=== PATIENT | female | born 1940 | race Caucasian/White ===

== ENCOUNTER 2017-10-06 08:34 | Emergency (ER) | payer MEDICARE ==
[~2017-10-06] VITALS: Ht 157.5 cm; Wt 90.7 kg
[~2017-10-06 08:34] MED LIST: ALENDRONATE SOD70 MG PO; AMLODIPINE BESY10 MG PO; CHLORTHALIDONE50 MG PO; CRESTOR10 MG PO; ESCITALOPRAM OX20 MG PO; FAMOTIDINE40 MG PO; KRILL OIL 1,001 EACH PO; LEVAQUIN750 MG PO; LEVOTHYROXINE75 MCG PO; LOSARTAN POTAS100 MG PO; LYRICA50 MG PO; METOPROLOL TAR100 MG PO; NIACIN500 M1 PO; OFLOXACIN10 ML OPTH; OXYBUTYNIN CHLO10 MG PO; OXYBUTYNIN CHLOR5 MG PO; OXYCODONE HCL5 MG PO; PREDNISOLONE ACE5 ML OPTH; PROBENECID-COL1 EACH PO; TRAMADOL HCL50 MG PO; VITAMIN D250000 UNIT PO; WARFARIN SODIU7.5 MG PO; WARFARIN SODIUM1 MG PO
[2017-10-06] MEDS ORDERED: METHYLPREDNISOLO4 M1 PO (10:38)
[2017-10-06] MEDS ORDERED: BACLOFEN10 MG PO (10:38)
== END 2017-10-06 11:04 | disposition home or self-care (01) ==
LOC: ED 08:34
DX: S20.211A Contusion of right front wall of thorax, initial encounter (principal); E03.9 Hypothyroidism, unspecified; E78.00 Pure hypercholesterolemia, unspecified; Z90.49 Acquired absence of other specified parts of digestive tract; Z95.0 Presence of cardiac pacemaker; Z98.890 Other specified postprocedural states; Z88.0 Allergy status to penicillin; Z88.6 Allergy status to analgesic agent; Z79.899 Other long term (current) drug therapy; W01.198A Fall on same level from slipping, tripping and stumbling with subsequent striking against other object, initial encounter; Z79.01 Long term (current) use of anticoagulants
CPT/HCPCS: 36415; 71101; 80048; 85025; 85610; 96372; 99283; J1885

== ENCOUNTER 2017-10-09 14:15 | Emergency (ER) | payer MEDICARE ==
[~2017-10-09] VITALS: Ht 157.5 cm; Wt 90.7 kg
[~2017-10-09 14:15] MED LIST changes: +BACLOFEN10 MG PO; +METHYLPREDNISOLO4 M1 PO
--- NOTE | 2017-10-09 15:12 | EKG ---
[facility] [address] [facility] [place] [address] Signed Normal sinus rhythm Normal ECG No previous ECGs available Confirmed by BRENDEN JUSTIN MD ([id number]) on 10/09/2017 3:12:22 PM Electronically Signed By: BRENDEN JUSTIN MD 10/09/17 1512 PATIENT NAME: CARLOS NARAYANAN Electrocardiogram DATE OF : 36 PHYSICIAN: BRENDEN JUSTIN MD REPORT #: [id number] REPORT IS CONFIDENTIAL AND NOT TO BE RELEASED WITHOUT AUTHORIZATION
[2017-10-09] MEDS ORDERED: CODEINE SULFATE30 MG PO (15:56)
== END 2017-10-09 16:40 | disposition home or self-care (01) ==
LOC: ED 14:15
DX: R47.01 Aphasia (principal); T42.8X5A Adverse effect of antiparkinsonism drugs and other central muscle-tone depressants, initial encounter; I10 Essential (primary) hypertension; E03.9 Hypothyroidism, unspecified; E78.00 Pure hypercholesterolemia, unspecified; Z86.73 Personal history of transient ischemic attack (TIA), and cerebral infarction without residual deficits; Z88.0 Allergy status to penicillin; Z88.8 Allergy status to other drugs, medicaments and biological substances; Z79.899 Other long term (current) drug therapy; Z79.01 Long term (current) use of anticoagulants
CPT/HCPCS: 70450; 71010; 80053; 84484; 85025; 85610; 85730; 93005; 93010; 99284; J7030

== ENCOUNTER 2018-04-26 14:11 | Inpatient (IN) | payer MEDICARE ==
[~2018-04-26] VITALS: Ht 157.5 cm; Wt 98.9 kg
[~2018-04-26 14:11] MED LIST changes: +CODEINE SULFATE30 MG PO; +FAMOTIDINE20 MG PO; -FAMOTIDINE40 MG PO
--- NOTE | 2018-04-26 18:35 | NUR ---
PT TO ROOM 109, PT ALERT, TRANSFER SLIDE TO HOSPITAL BED WITH THREE PERSON ASSIST. FAMILY AT BEDSIDE.
--- NOTE | 2018-04-26 19:25 | NUR ---
RECIEVED REPORT FROM ABDELRAHMAN CATALAN. PT JUST ARRIVED TO FLOOR. LR STARTED AT 100ML/HR. PT IS A/O 1L NC IN PLACE. SON AT BEDSIDE. REPORTS PAIN 05/19. INFORMED PT OF DUE PAIN MEDICATION. PT EATING DINNER AT THIS TIME. CALL LIGHT WITHIN REACH. REPORTS NO OTHER NEEDS AT THIS TIME.
--- NOTE | 2018-04-26 22:00 | NUR ---
ASSESSMENT COMPLETED. CRACKLES RLL. FINE CRACKLES LLL. HEART SONDS REGULAR. BRUISING NOTED ON RIGHT RIB. NO EDEMA. PULSES +2 X4. CMS INTACT. PAIN 7/10. MEDICATION GIVEN. BOWEL TONES ACTIVE. LOTS OF FAMILY AT BEDSIDE. PT IS A/O. OOB TO BATHROOM VOID NOT CAUGHT. CALL LIGHT WITHIN REACH. REPORTS NO OTHER NEEDS AT THIS TIME.
--- NOTE | 2018-04-27 | NUR ---
PT APPEARS TO BE SLEEPING. ACCESSORY MUSCLES USED WHILE BREATHING. PT USES BIPAP AT HOME. 1L NC IN PLACE .FLUIDS INFUSING. CALL LIGHT WITHIN REACH. RESPITORY RATE IS 20.
--- NOTE | 2018-04-27 02:14 | NUR ---
IN ROOM TO TAKE VS AND ADMINISTER OXYCODONE. PT DENIES FURTHER NEEDS. CALL LIGHT IS WITHIN REACH.
--- NOTE | 2018-04-27 04:18 | NUR ---
ASSESSMENT COMPLETED. CRACKELS IN RLL. FINE CRACKLES IN LLL. BRUISING IN RIGHT RIB HAS SLIGHTLY INCREASED IN SIZE. RESPIRATIOSN ARE EQUAL AND NONLABORED. 1L NC IN PLACE. FLUIDS INFUSING. CALL LIGHT WITIHN REACH.
--- NOTE | 2018-04-27 05:39 | NUR ---
PT SLEPT THROUGH THE NIGHT.; BRUISING ON RIB INCREASED SLIGHTLY. VSS. 1L NC IN PLACE. ABDOMINAL MUSCLES USED WHILE BREATHING .SATURATION STAYED MID 90'S. 1L NC. SBA FWW. SL.
--- NOTE | 2018-04-27 05:46 | NUR ---
VITALS DONE AND CHARTED. BEDSIDE TABLE AND CALL LIGHT WITHIN REACH. PT NEEDS NOTHING ELSE AT THIS TIME.
--- NOTE | 2018-04-27 07:55 | NUR ---
PT IN BED SLEEPING, AWOKE EASILY TO VOICE. PT DENIES PAIN AT THIS TIME AT REST, REPORTS THAT SHE HAS PAIN WITH DEEP INSPIRATION AND WITH MOVMENT. DENIES NAUSA, DIFFICULTY BREATHING, OR OTHER CONCERNS. ALERT AND ORIENTED. PT ASSISTED TO ORDER BREAKFST, GIVEN FRESH ICE WATER. ASSESSMENT COMPLETED. CALL LIGHT WITHIN REACH.
--- NOTE | 2018-04-27 09:20 | NUR ---
PT GETTING US IN ROOM. PT SBA WITH WALKER TO RESTROOM SHELTER THROUGH. STEADY ON FEET. PT WITHOUT PAIN AT REST, RATES PAIN 8/10 WITH MOVEMENT. RECIEVED SCHEDULED OXYCODONE. PT ALERT AND ORIENTED. SATTING 97% ON 1LNC. EXTENSIVE BRUISING NOTED TO RIGHT RIB AREA FROM RECENT FALL. PT ASSISTED BACK TO BED TO FINISH US. CALL LIGHT WITHIN REACH.
--- NOTE | 2018-04-27 11:44 | NUR ---
PT RESTING IN BED, DRINKING A CUP OF COFFEE. SHE IS ALERT, ORIENTED AND ALSO SUPPORTED BY HER SON. PT SEEMED SOMEWHAT COMFORTABLE, SHE DID MENTION THAT HER PAIN HAD STARTED TO DECREASE. SHE FELT THE PAIN MEDS WERE WORKING, AND WE CONTINUED TO VISIT, A FRIEND STOPPED BY TO VISIT. I EXTENDED A BLESSING, WILL FOLLOW NEEDED
--- NOTE | 2018-04-27 11:50 | NUR ---
PT AMB HALLWAY WITH P.T., SBA WITH WALKER. PAINFUL WITH MOVEMENT.
--- NOTE | 2018-04-27 12:34 | NUR ---
PT ASSISTED BACK TO BED AFTER AMB WITH P.T., PT VERY PAINFUL, MEDICATED WITH PRN OXY. GIVEN FRESH ICE WATER. FAMILY AT BEDSIDE. CALL LIGHT WITHIN REACH.
--- NOTE | 2018-04-27 13:25 | NUR ---
PT IN BED, REPORTED 9/10 PAIN TO BACK AND RIGHT RIBS. REPORTED THAT SHE FEELS LIKE SHE IS HAVING "BACK SPASMS". GAVE SCHEDULED OXYCODONE 5 MG PO. PT HAS HER PERSONAL SUPPLIES AND CALL LIGHT IN REACH.
--- NOTE | 2018-04-27 14:40 | NUR ---
PT CONT TO C/O OF MUSCLE SPASMS IN RIGHT BACK/RIB AREA. NOTIFIED DR. JUSTIN. PT REPOSITIONED AND PLACED WARM K-PACK TO AFFECTED AREA. PT WORKING ON I.S. REGULARLY, USING APPROPRIATELY. FRIEND AT BEDSIDE. CALL LIGHT WITHIN REACH.
[2018-04-27] MEDS ORDERED: METOPROLOL SUC200 MG PO (14:47)
--- NOTE | 2018-04-27 15:03 | NUR ---
Medications reconciled with pharmacy records and patient interview. Patient is [facility] to pharmacist as [facility] patient
[2018-04-27] MEDS ORDERED: ALENDRONATE SOD70 MG PO (15:23)
--- NOTE | 2018-04-27 15:45 | NUR ---
PT RESTING IN BED, REPORTS THAT PAIN IS ALMOST GONE AT THIS TIME AND MUSCLE SPASMS HAVE SIGNIFICANTLY DECREASED. STATES SHE WOULD LIKE TO TAKE THIS TIME TO REST FOR A WHILE. CALL LIGHT WITHIN REACH.
--- NOTE | 2018-04-27 17:04 | NUR ---
SEVERINO SANDOVAL WITH [facility] CNA.
--- NOTE | 2018-04-27 18:21 | NUR ---
PT TRANSFERRED BACK TO BED AFTER WORKING WITH P.T. PT TRANSFERRED WITH WALKER TO [facility], VOIDED LARGE AMOUNT. SATTING 88% ON 3L NC, PLACED BACK ON BIPAP AT THIS TIME WHILE SLEEPING. PT DENIES PAIN AT THIS TIME, NAUSEA RESOLVED AFTER RECIEVING ZOFRAN. AT BEDSIDE. BILATERAL DRESSINGS REMAIN CDI, CRYO CUFFS, TEDS, AND SCD'S IN PLACE. CALL LIGHT WITHIN REACH.
--- NOTE | 2018-04-27 19:13 | NUR ---
BEDSIDE REPORT RECEIVED FROM HOSSEIN HUERTA. PT AWAKE, STANDING AT BEDSIDE WITH FWW, FAMILY AND [employer] C DEVELOPER IN ROOM. PT REQUESTING TO WALK, 1L OXYGEN BY NC. IV SALINE LOCKED. PT DENIES PAIN. WILL CONTINUE TO MONITOR.
--- NOTE | 2018-04-27 20:07 | NUR ---
1 PA WITH WALKER PATIENT WALKED AROUND THE HALLWAY, 2L NC X1. PATIENT IS BACK IN BED. CALL LIGHT IN REACH. FAMILY IN ROOM.
--- NOTE | 2018-04-27 20:21 | NUR ---
PT ASSESSMENT COMPLETE. PT REPOSITIONED IN BED WITH RN SULY ASSIST. KPAD REPOSITIONED ON RIGHT SIDE. BRUISING NOTED. LUNGS CLEAR THROUGHOUT, DIMINISHED IN BASES BILATERALLY. PT USING IS. ON 1L OXYGEN BY NC, SATURATIONS WNL. PT DENIES PAIN, STATES "SHARP, 8-9/10 PAIN AT TIMES". SCHEDULED OXYCODONE ADMINISTERED. PT DENIES NEED FOR ORAL CARE, TOILETING. CALL LIGHT IN REACH.
--- NOTE | 2018-04-27 20:34 | NUR ---
ROUNDED CHARGE. PATIENT IS RESTING IN BED. RN ASSISTED WITH BOOSTING PATIENT. PATIENT DENIES ANY COMMNETS, QUESTIONS, OR CONCERNS. NO NEEDS NOTED AT THIS TIME. CALL LIGHT IN REACH. FAMILY IN THE ROOM.
--- NOTE | 2018-04-27 23:25 | NUR ---
CALL LIGHT ANSWERED, PT C/O SHARP, INTERMITTENT PAIN IN RIGHT RIBS. PRN OXYCODONE ADMINISTERED. HOME CPAP ON. NO ADDL REQUESTS, CALL LIGHT IN REACH.
--- NOTE | 2018-04-28 02:04 | NUR ---
CHECKED ON PT, APPEARS TO BE SLEEPING, EYES CLOSED, VISIBLE CHEST RISE EQUAL BILATERALLY. HOME CPAP ON. LIGHTS OFF IN ROOM.
--- NOTE | 2018-04-28 03:45 | NUR ---
IN PT ROOM WITH RT KAREN, SPO2 83% WITH HOME CPAP, 2L OXYGEN BLED INTO CPAP AT THIS TIME, SATURATIONS INCREASE TO 89%. PT ALERT AND ORIENTED. LUNGS CLEAR THROUGHOUT ALL LOBES, DIMINISHED IN BASES. BOWEL TONES ACTIVE X 4, ABD SOFT. PT RATES PAIN 10/10, OXYCODONE ADMINISTERED. PT ASSISTED TO REPOSITION, KPAD IN PLACE. CALL LIGHT IN REACH, PT HAS NO ADDL REQUESTS. WILL CONTINUE TO MONITOR.
--- NOTE | 2018-04-28 06:38 | NUR ---
IN PTS ROOM FOR [employer] EXCHANGE ADMINISTRATOR, SLEEPING, AWAKENS EASILY TO VOICE. PT C/O -08/19 SHARP INTERMITTENT PAIN, PRN OXYCODONE ADMINISTERED AT THIS TIME. HOME CPAP ON W 2L OXYGEN BLED INTO MACHINE. PT HAS CALL LIGHT IN LAP. DENIES TOILETING NEEDS. ICE WATER REFILLED.
--- NOTE | 2018-04-28 06:41 | NUR ---
PAIN CONTROLLED WITH PRN AND SCHEDULED OXYCODONE. 1PA WITH FWW TO RESTROOM FOR VOIDS, INCONTINENCE IN ATTENDS. PT USING CALL LIGHT APPROPRIATELY. AMBULATED OUT OF ROOM WITH SBA FWW. PT ON HOME CPAP WITH 2L OXYGEN BLED IN TO MAINTAIN SATURATIONS >90%. 2L OXYGEN BY NC AT REST.
--- NOTE | 2018-04-28 07:05 | NUR ---
PT RESTING IN BED EYES CLOSED, ALERT TO BEDSIDE REPORT. PT ON CPAP.
--- NOTE | 2018-04-28 10:05 | NUR ---
PT EDUCATION PROVIDED TO CONTINUE AMBULATION, DEEP BREATH OFTEN TO F[place]ON OFF PNEUMONIA, BOTH PT AND CAREGIVER/FRIEND IN ROOM FOR EDUCATION. DISCUSSED PLAN OF CARE FOR THE DAY AND PLAN FOR PAIN MANAGEMENT. ALSO DISCUSSED PT INCREASE IN PAIN WITH , TOPICAL CREAM WILL BE ORDERED.
--- NOTE | 2018-04-28 10:57 | NUR ---
PT REPORTS THAT SHE IS HAvING BACK SPASMS, PT REPOSITIONED AND K-PAD PLACED TO PAINFUL AREA. PT REPORTS PAIN IMPROVED.
--- NOTE | 2018-04-28 11:47 | NUR ---
PT SITTING IN CHAIR, ALERT AND ORIENTED. HER FRIEND LEFT JUST I ARRIVED. PT STATED THAT SHE HAD A REALLY LONG NIGHT. SHE ENCOUNTERED SPASMS MOST OF THE NIGHT, AND HAD ONE WHILE I WAS WITH HER. WE HAD PRAYER TOGETHER, AND I TOLD HER I WOULD NOTIFY HER RN, WHICH I DID. I WILL CONTINUE TO FOLLOW NEEDED
--- NOTE | 2018-04-28 12:55 | NUR ---
pt repostitioned in chair and administered flexeril 2.5mg po. and lidoderm patch placed to right back to assist with muscle spasms.
--- NOTE | 2018-04-28 14:30 | NUR ---
UPDATED ON PT TO WORK WITH PHYSICAL THERAPY AT 1500 AND R.T. WILL PERFORM HOME OXYGEN EVALUATION ALSO
--- NOTE | 2018-04-28 15:15 | NUR ---
UPDATED THAT FAMILY FEELS NOT READY TO GO HOME ONLY ONE PERSON AVAILABLE TO ASSIST PT AT HOME. WHILE WORKING [facility] PHYSICAL THERAPY WAS EVALUATED TO NEED 3-4L BY Ba, AND SHE REQUIRED TWO PERSON ASSIST TO GET IN AND OUT OF BED. PAIN AND MUSCLES SPASMS STILL MODERATE, RN AND MD HAS BEEN ADJUSTING PAIN REGIME THROUGHOUT SHIFT TO MAKE PAIN TOLERABLE.
--- NOTE | 2018-04-28 15:57 | NUR ---
PT CURRENTLY AT REST IN BED ON ROOM AIR OXYGEN SATURATION 92%. PT REPORTS AT REST WHEN NOT HAVING MUSCLE SPASMS PAIN IS TOLERABLE.
--- NOTE | 2018-04-28 16:52 | NUR ---
PT HAS BEEN UP TO RECLINER THIS AM FOR UNTIL AFTER LUNCH THEN BACK TO BED, HAS WORKED WITH PHYSICAL THERAPY THIS AFTERNOON, AND HAD HOME OXYGEN EVALUATION, SHE REQUIRES 3-4L WITH AMBULATION AND ROOM AIR WHILE AT REST. SHE REQUIRES TO PERSON ASSIST TO GET IN AND OUT OF BED. SHE HAS HAD MUSCLE SPASMS IN HER BACK SEVERE GRADE. FLEXRIL ADDED TO PAIN REGIME, OXYCODONE SCHEDULED AND PRN ADMINISTERED OFTEN AVAILABLE TO MAINTAIN TOLERABLE LEVEL OF 3-4/10 PAIN. SHE REPORTS PAIN 10/10 WITH SPASMS. SPASMS IMPROVE WITH AMBULATION. PT CHANGED TO INPATIENT STATUS TODAY.
--- NOTE | 2018-04-28 19:13 | NUR ---
BEDSIDE REPORT RECEIVED FROM HOSSEIN BAY. PT APPEARS TO BE SLEEPING AT THIS TIME, EYES CLOSED, BREATHING NON-LABORED, SHALLOW, PT ON 2L OXYGEN BY NC. HOSSEIN BAY TO ADMINISTER PRN OXYCODONE FOR PAIN CONTROL.
--- NOTE | 2018-04-28 21:45 | NUR ---
PT ASSESSMENT COMPLETE. 1PA WITH FWW TO RESTROOM FOR VOID, SOME INCONTINENCE NOTED IN ATTENDS, ATTENDS CHANGED. 1PA WITH FWW BACK TO BED, ORAL CARE COMPLETE. RT KAREN IN ROOM. LUNGS CLEAR BILATERALLY IN UPPER LOBES, FINE CRACKLES LLL, RLL DIMINISHED. PT USING IS AND CPT INSTRUCTED. LIDODERM PATCHES REMOVED AT THIS TIME, PRN ASPERCREME ADMINISTERED. PT RATES PAIN 0/10 AT THIS TIME, CONTINUES TO HAVE SHARP PAIN, "SPASMS". HOME CPAP ON AT THIS TIME, LIGHTS OFF, PT GIVEN ICE WATER, CALL LIGHT IN REACH.
--- NOTE | 2018-04-29 00:16 | NUR ---
CHECKED ON PT, APPEARS TO BE SLEEPING, EYES CLOSED, BREATHING NON-LABORED, HOME CPAP ON WITH 2L OXYGEN BLED IN. LIGHTS OFF IN ROOM.
--- NOTE | 2018-04-29 01:55 | NUR ---
IN PT ROOM FOR SCHEDULED PAIN MEDICATION ADMINISTRATION. PT AWAKENS EASILY WITH RN ENTERING ROOM. PT DENIES PAIN AT THIS TIME. PT DENIES TOILETING NEEDS AT THIS TIME, WILL MONITOR. HOME CPAP ON WITH 2L OXYGEN. CALL LIGHT IN REACH.
--- NOTE | 2018-04-29 03:10 | NUR ---
2PA OUT OF BED AND SBA WITH FWW FOR AMBULATION TO RESTROOM FOR 400 ML VOID. PT PASSING FLATUS, NO BM AT THIS TIME. FINE CRACKLES NOTED BILATERALLY LOWER LOBES, PT ENCOURAGED TO DEEP BREATHE. PT RATES PAIN 3-4/10. PRN ASPERCREME APPLIED TO RIGHT SIDE, BACK. REPOSITIONED IN BED WITH TELEPHONIC NURSE SINTA ASSIST. HOME CPAP WITH 2L OXYGEN ON. KPAD IN PLACE. LIGHTS OFF IN ROOM. CALL LIGHT IN REACH.
--- NOTE | 2018-04-29 04:00 | NUR ---
ASSISTED PATIENT TO THE BATHROOM AND BACK TO BED USING WALKER. CALL LIGHT WITHIN REACH. HOSSEIN CARRASCO IN ROOM WITH PATIENT.
--- NOTE | 2018-04-29 05:22 | NUR ---
2PA OUT OF BED, SBA WITH FWW TO RESTROOM FOR VOIDS, ONE EPISODE OF INCONTINENCE THIS SHIFT, ATTENDS IN PLACE. PAIN WELL CONTROLLED WITH PRN OXCODONE, PRN FLEXARIL, ASPERCREME. PT HAS APPEARED TO SLEEP THROUGHOUT SHIFT. 2L OXYGEN WITH CPAP FOR SLEEP, SATURATIONS WNL. NO BM THIS SHIFT, BOWEL TONES ACTIVE, PT PASSING FLATUS.
--- NOTE | 2018-04-29 06:10 | NUR ---
1PA FROM [facility] BACK TO BED. PT HAD LARGE BM AND UNMEASURED VOID. PT C/O 4-04/19 PAIN WITH AMBULATION, "SPASMS IN LOWER BACK". PRN MUSCLE RELAXANT AND PAIN MEDICATION ADMINISTERED AT THIS TIME. PT ON 2L OXYGEN BY CT AT THIS TIME, AWAKE. GIVEN ICE WATER. CALL LIGHT AND PERSONAL SUPPLIES IN REACH.
--- NOTE | 2018-04-29 08:00 | NUR ---
PT 1PA TO [facility], VOIDED AND HAD LARGE BM. ASSISTED BACK TO BED. BREAKFAST IN ROOM. FRIEND AT BEDSIDE. CALL BUTTON WITHIN REACH.
--- NOTE | 2018-04-29 08:15 | NUR ---
ASSISTED PATIENT OFF OF BSC. SBA FWW TO RECLINER. SET PATIENT UP FOR BREAKFAST. [id number] CHEST PROTECTOR. LINENS CHANGED. BM LIQUID BROWN. 2L [address] BLINDS OPENED TO ALLOW NATURAL LIGHT.
--- NOTE | 2018-04-29 11:17 | NUR ---
PT SITTING UP IN RECLINER. DENIES PAIN AT REST, STATES SHE ONLY HAS PAIN WITH DEEP INSPIRATION AND MOVEMENT. NEW LIDOCAINE PATCHES APPLIED THIS AM. PT ENCOURAGED TO DEEP BREATH AND COUGH, I.S. AND ACAPELLA. PT STILL REQUIRING 2LNC. ALERT AND ORIENTED. REPORTING "INDIGESTION" AT THIS TIME AND WOULD LIKE SOMETHING FOR HEARTBURN.
--- NOTE | 2018-04-29 11:45 | NUR ---
PT MEDICATED WITH PRN MAALOX FOR C/O OF HEARTBURN. PT REPORTS AT THIS TIME THAT SHE "SPIT UP A LITTLE BIT" AFTER TAKING MEDICATIONS. REPORTS GAS AND SLIGHT STOMACH UPSET. HELD LAXATIVE THIS AM PT HAS HAD 2 LARGE SOFT STOOLS. PT SITTING UP IN BED WATCHING TV, WAITING FOR MEDICATION TO "SETTLE" BEFORE ATTEMPTING TO EAT LUNCH. CALL BUTTON WITHIN REACH.
--- NOTE | 2018-04-29 12:34 | NUR ---
ASSISTED PT FROM TOILET, PT HAD MODERATE AMOUNT OF FOUL SMELLING LIQUID STOOL. PT REQUESTED TO AMB, AMB WITH MINIMAL ASSIST USING WALKER WITH FRIEND. PT SATTING 92% ON RA WHILE AMB.
--- NOTE | 2018-04-29 14:03 | NUR ---
PT RESTING IN BED, SEEMED PLEASED I STOPPED BY. PT MENTIONED HOW SHE FELL IN [place] AT A FAMILY REUNION, AND RODE IN A CAR BACK HERE. FEELS THOUGH HER LIFE WILL CHANGE, AND REALIZED SHE NEEDS TO MAKE SOME ADJUSTMENTS. SPASMS HAVE DECREASED IN NUMBER AND INTENSITY, WHICH SHE IS THANKFUL FOR. PLEASANT VISIT, PT REQUESTED PRAYER, WILL FOLLOW NEEDED
--- NOTE | 2018-04-29 14:20 | NUR ---
ASSISTED PT TO RESTROOM. SBA WITH WALKER. AMB TO RECLINER. SITTING UP WATCHING TV. ABLE TO MAINTAIN SATS ABOVE 90% ON RA. SMALL REDDNENED AREA ON BUTTOCK, BARRIER CREAM APPLIED. CALL LIGHT WITHIN REACH.
--- NOTE | 2018-04-29 16:10 | NUR ---
PT AMB HALLWAY WITH SBA AND WALKER. MAINTAINTED SATS AT 92% ON RA WHILE AMB. AMB BACK TO ROOM AND UP IN RECLINER. PT WORKING ON I.S. REGULARLY. CALL BUTTON WITHIN REACH.
--- NOTE | 2018-04-29 17:21 | NUR ---
PT AMB HALLWAY WITH P.T., STEADY ON FEET WITH WALKER.
--- NOTE | 2018-04-29 19:20 | NUR ---
HANDOFF REPORT RECEIVED FROM DAY SHIFT RN. PT RESTING IN BED, ON PHONE.
--- NOTE | 2018-04-29 20:24 | NUR ---
VITALS DONE AND CHARTED. PT NEEDS NOTHING ELSE AT THIS TIME.
--- NOTE | 2018-04-29 20:50 | NUR ---
PT RESTING IN BED. PT ALERT/ORIENTED, TRAIN OF THOUGHT NOT CLEAR. PT ON ROOM AIR, LUNG SOUNDS CLEAR WITH DIMINISHED RIGHT LOWER LOBE, O2 SATS 90%. PT BOWEL TONES ACTIVE, PT ASSISTED TO BEDSIDE COMMODE, LOOSE STOOL, BOWEL MEDS HELD. PT CMS INTACT, PULSES PALPABLE. SALINE LOCKED, FLUSHED, PATENT. PT WITH BLANCHABLE REDNESS TO BUTTOCK, BARRIER CREAM APPLIED. LIDOCAINE PATCHES REMOVED, ASPERCREME APPLIED TO RIGHT BACK AND FLANK. SCHEDULED OXYCODONE GIVEN. PT DENIES OTHER NEEDS AT THIS TIME. CPAP MASK IN PLACE.
--- NOTE | 2018-04-29 22:37 | NUR ---
PT ASSISTED TO BEDSIDE COMMODE AND BACK TO BED. PT WITH LOOSE STOOL, BARRIER CREAM APPLIED. PT DENIES OTHER NEEDS AT THIS TIME. CALL LIGHT WITHIN REACH. CPAP IN PLACE.
--- NOTE | 2018-04-29 23:34 | NUR ---
PT CALLED FOR ASSISTANCE. PT REPORT OF SEEING SPIDERS ON THE CEILING, NO SPIDERS PRESENT, REASSURED PT. PT CONTINUES TO BE ORIENTED. WILL CONTINUE TO MONITOR.
--- NOTE | 2018-04-30 02:23 | NUR ---
PT GIVEN SCHEDULED OXYCODONE, PT RATING PAIN HIGH 9/10. PT APPEARS COMFORTABLE, APPEARS TO BE ABLE TO SLEEP. PT ASSISTED TO BEDSIDE COMMODE AND BACK TO BED. PT DENIES OTHER NEEDS AT THIS TIME.
--- NOTE | 2018-04-30 05:48 | NUR ---
PT ALERT/ORIENTED, PT WITH SOME VISUAL HALLUCINATIONS THROUGHOUT EVENING, MD AWARE. PT WORE CPAP FOR NIGHT, LUNG SOUNDS CLEAR WITH DIMINISHED RIGHT LOWER LOBE. PT WITH FREQUENT LOOSE STOOLS AT BEGINING OF SHIFT, EMESIS X1, SL ZOFRAN GIVEN. PT SALINE LOCKED. UP WITH 1PA TO BSC. PAIN MANAGED WITH SCHEDULED OXYCODONE AND PRN ASPERCREME X1, RATING PAIN 0/10 AT REST, SEVERE PAIN WTH MOVEMENT. VOIDING QS.
--- NOTE | 2018-04-30 06:57 | NUR ---
VITALS AND I&OS DONE AND CHARTED. FRESH WATER GIVEN. BEDSIDE TABLE AND CALL LIGHT WITHIN REACH.
--- NOTE | 2018-04-30 07:33 | NUR ---
BEDSIDE REPORT RECEIVED FROM KIMANI CATALAN. PATIENT SLEEPING DURING REPORT. ALLOWED REST. UPDATED WHITE BOARD. PATIENT CALLED TO GET UP TO COMMODE AT 0720. THIS RN HELPED HER UP TO BSC 1PA. CALL LIGHT IN REACH. LINENS STRAIGHTENED UP AND ROOM TIDIED. BLINDS RAISED TO ALLOW NATURAL LIGHT. LOOSE STOOLS THROUGHOUT NIGHT.
--- NOTE | 2018-04-30 17:04 | NUR ---
pt up in restroom having loose BM. will attempt to collect stool specimen. call light in reach and linens changed.
--- NOTE | 2018-04-30 18:40 | NUR ---
NEED STOOL SAMPLE TO R/O C-DIFF. CONTACT PERCAUTIONS. OXYCODONE PRN INSTEAD OF SCHEDULED TO HOPEFULLY RESOLVE SLIGHT CONFUSION. NO IV. WILL NEED ONE IF C-DIFF POSITIVE FOR ABX THERAPY.
--- NOTE | 2018-04-30 19:00 | NUR ---
RECEIVED REPORT FROM RN. PATIENT RESTING COMFORTABLY IN BED. NO NEEDS AT THIS TIME. CALL LIGHT WITHIN REACH.
--- NOTE | 2018-04-30 21:21 | NUR ---
NOTIFIED MD OF LOW DIASTOLIC PRESSURE AND CONTINUED DIARRHEA. 1L NS BOLUS OVER 4 HOURS ORDERED.
--- NOTE | 2018-04-30 21:30 | NUR ---
PATIENT RESTING COMFORTABLY IN BED, BREATHING IS EVEN AND UNLABORED. DENIES NEEDS AT THIS TIME, FLACC SCORE OF 0. CALL LIGHT WITHIN REACH, BED ALARM ON.
--- NOTE | 2018-04-30 22:30 | NUR ---
NS BOLUS STARTED. DELAYED START DUE TO DIFFICULTY WITH ESTABLISHING IV ACCESS. IV PATENT, FLUSHES WELL.
--- NOTE | 2018-04-30 23:05 | NUR ---
STOOL SAMPLE COLLECTED AND SENT TO LAB
--- NOTE | 2018-05-01 01:31 | NUR ---
ASSISTED PATIENT TO BEDSIDE COMODE. 1PA. GAIT IS STEADY. NOW RESTING IN BED AGAIN, BREATHING IS EVEN AND UNLABORED. DENIES NEEDS AT THIS TIME. CALL LIGHT WITHIN REACH.
--- NOTE | 2018-05-01 03:44 | NUR ---
PATIENT'S IV INFILTRATED, REQUIRED FULL LINEN CHANGE. UP TO BATHROOM WITH 1PA/FWW. NOW RESTING IN BED WITH BREATHING EVEN AND UNLABORED. DENIES FURTHER NEEDS. UPDATED DR. JEWELL REGARDING PATIENT'S IV INFILTRATION, IMPROVED BP OF 140/46 WITH MAP OF 69. NO NEW IV NEEDED AT THIS TIME. BLADDER SCAN DONE, PATIENT HAS 641 ML NOTED, PATIENT UNABLE TO VOID. ORDER FOR STRAIGHT CATH RECEIVED.
--- NOTE | 2018-05-01 04:43 | NUR ---
STRAIT CATH DONE WITH AMY RN. PATIENT TOLERATED PROCEDURE WELL, PATIENT NOW RESTING IN BED, BREATHING IS EVEN AND UNLABORED. PRN PAIN MEDICATION GIVEN FOR PAIN IN RIGHT SIDE. CALL LIGHT WITHIN REACH.
--- NOTE | 2018-05-01 07:00 | NUR ---
BEDSIDE HANDOFF REPORT RECEIVED FROM FBI INVESTIGATOR RN. PT SLEEPING, LEFT UNDISTURBED.
--- NOTE | 2018-05-01 09:55 | NUR ---
PT RESTING IN BED. PT RATING PAIN 1/10 AT THIS TIME TO RIGHT FLANK/RIBS. PT ON ROOM AIR, LUNG SOUNDS CLEAR WITH DIMINIHSED BASES. PT DENIES NAUSEA, BOWEL TONES ACTIVE. ORTHOSTATIC VITALS COMPLETED PER ORDER, PT TOLERATED WELL, WITHOUT DIZZINESS. PT WITHOUT IV ACCESS. CMS INTACT, WITHOUT EDEMA. PT REQEUSTING TO REST. PT DENIES OTHER NEEDS AT THIS TIME.
--- NOTE | 2018-05-01 11:00 | NUR ---
FAMILY AT BEDSIDE. PT DENIES NEEDS AT THIS TIME.
--- NOTE | 2018-05-01 13:50 | NUR ---
CARE CONFERENCE DR JEWELL, PATIENT AND FAMILY DR JEWELL UPDATED PATIENT ON PROGRESS, PENDING LABS, AND PLAN. QUESTIONS ANSWERED. PLAN IS FOR DISCHARGE HOME WITH FAMILY WHEN READY.
--- NOTE | 2018-05-01 15:30 | NUR ---
PT BLADDER SCANNED FRO 475. PT ASSISTED TO BATHROOM, ABLE TO VOID 200 ML. PT STATES SHE USED RESTROOM WITH OCCUPATIONAL THERAPY EARLIER TODAY WHEN HER FAMILY WAS HERE. PT ASSISTED TO CHAIR. PT DENIES OTHER NEEDS AT THIS TIME.
--- NOTE | 2018-05-01 15:30 | NUR ---
report given from russ dias. assessment complete on patient.
--- NOTE | 2018-05-01 16:25 | NUR ---
patient was taking off contact precautions because c-diff came back negative. patient sitting up in chair. tolerating food well. 1 tab of pain medication given. lioderm patches to r side. patient stating pain okay while resting increased with movement. continue to have loose stool .
--- NOTE | 2018-05-01 17:51 | NUR ---
patient finished 75 percent of dinner. assisted to the br. patient agreed to ambulate in [place]. tolerated one lap well. assisted back to bed. granddaughter in room.
--- NOTE | 2018-05-01 19:59 | NUR ---
RECEIVED REPORT FROM DAY SHIFT NURSE. PT APPEARS TO BE SLEEPING IN ROOM. RA. CALL LIGHT WITHIN REACH.
--- NOTE | 2018-05-01 21:03 | NUR ---
I&OS DONE AND CHARTED. ORTHOS WILL BE DONE IN THE AM PER REQUEST OF BILLET HEATER OPERATOR FLORA. WARM BLANKET GIVEN. BEDSIDE TABLE AND CALL LIGHT WITHIN REACH.
--- NOTE | 2018-05-01 22:00 | NUR ---
SBA WIHT FWW TO BATHROOM AND BACK. VOIDED 200 ML. CALL LIGHT WITHIN RECH. SCD'D IN PLACE. REPORTS NO OTHER NEEDS AT THIS TIME
--- NOTE | 2018-05-01 23:42 | NUR ---
ASSISTED PT SBA WITH FWW TO BATHROOM. TOLERATED WELL. VOIDED 200 ML. BACK TO BED. CALL LIGHT WITHIN REACH. REPORTS NO OTHER NEEDS AT THIS TIME.
--- NOTE | 2018-05-02 00:56 | NUR ---
PT SATURATION WHILE SLEEPING ON RA IS 88%. RT CALLED TO PLACE PT'S OWN CPAP ON.
--- NOTE | 2018-05-02 01:31 | NUR ---
REASSESSED PT. RT IN TO SEE PT AND PLACE CPAP ON. PT APPEARS TO BE SLEEPING. O2 95% . HEART RATE IS 60. CALL LIGHT WITHIN REACH.
--- NOTE | 2018-05-02 03:16 | NUR ---
ASSISTED PT SBA FWW TO BATHROOM. VOIDED 200 ML. BACK TO BED. CPAP IN PLACE. CALL LIGHT WITHIN REACH, REPORTS NO OTHER NEEDS AT THIS TIME.
--- NOTE | 2018-05-02 05:45 | NUR ---
PT SLEPT THROUGH THE NIGHT. CPAP. SATURATIONS IN MIN 90'S ALL NIGHT. ENCOURAGE PT/OT, WORKS BETTER GETTING OUT OF BED ON LEFT SIDE. MIGHT BE RETAINING URINE. UP TO VOID MULTIPLE TIMES. NO IV SITE. PLAN FOR DC FRIDAY HOME OR REHAB FACILITY.
--- NOTE | 2018-05-02 07:39 | NUR ---
bedside report received from Beverley CATALAN. White board updated. Patient sleeping at this time.
--- NOTE | 2018-05-02 08:52 | NUR ---
CAME IN TO CHECK ON PATIENT SHE WAS SLEEPING. BUT I WOKE HER UP BECAUSE HER BREAKFAST WAS HERE. NOW SHE IS SITTING ON THE EDGE OF HER BED EATING HER BREAKFAST. WILL TAKE A SHOWER LATER.
--- NOTE | 2018-05-02 09:27 | NUR ---
PATIENT SITTING AT EDGE OF BED EATING BREAKFAST. LUNGS CLEAR AND DIM IN BASES. 3/10 RIGHT RIB PAIN REPORTED. LIDOCAINE PATCHES APPLIED OVER BRUISING. BRUISING APPEARS TO BE TURNING YELLOW AT EDGES, INDICATIVE OF HEALING APPROPRIATELY.
--- NOTE | 2018-05-02 11:54 | NUR ---
PT AMBULATED WITH PHYSICAL THERAPY IN HALLS FOR 3 MINUTES. SATURATED 91% AT FIRST MINUTE. DESATURATED TO 88% BY END OF WALK. 94% WHEN IN RECLINER SITTING FOR LUNCH ON ROOM AIR. FAMILY AT BEDSIDE.
--- NOTE | 2018-05-02 12:05 | NUR ---
HELPED PATIENT TAKE A SHOWER AROUND 1120 THIS MORNING ALSO CHANGED HER BED LINENS. AFTER SHOWER PATIENT SET IN HER CHAIR WITH FEET UP UNTIL PHYSICAL THERAPY CAME IN AND WORKED WITH HER.
== END 2018-05-02 12:20 | disposition swing bed (61) | DRG 183 ==
LOC: ED 14:11 → MS 14:13
PROVIDERS: ADMIT Internal Medicine
DX: S22.41XA Multiple fractures of ribs, right side, initial encounter for closed fracture (principal); J96.01 Acute respiratory failure with hypoxia; J98.11 Atelectasis; M62.838 Other muscle spasm; E86.0 Dehydration; N28.1 Cyst of kidney, acquired; I10 Essential (primary) hypertension; I48.2 Chronic atrial fibrillation; E03.9 Hypothyroidism, unspecified; G47.33 Obstructive sleep apnea (adult) (pediatric); R19.7 Diarrhea, unspecified; I69.341 Monoplegia of lower limb following cerebral infarction affecting right dominant side; E78.5 Hyperlipidemia, unspecified; K21.9 Gastro-esophageal reflux disease without esophagitis; M10.9 Gout, unspecified; M62.81 Muscle weakness (generalized); W01.198A Fall on same level from slipping, tripping and stumbling with subsequent striking against other object, initial encounter; Y92.002 Bathroom of unspecified non-institutional (private) residence as the place of occurrence of the external cause; Z88.6 Allergy status to analgesic agent; Z95.0 Presence of cardiac pacemaker; Z91.81 History of falling; Z88.0 Allergy status to penicillin; Z79.01 Long term (current) use of anticoagulants; Z79.83 Long term (current) use of bisphosphonates; Z79.899 Other long term (current) drug therapy
CPT/HCPCS: 36415; 71260; 72125; 74177; 76770; 80048; 80053; 81001; 83690; 83735; 85025; 85610; 85730; 86850; 86900; 86901; 87088; 87493; 94667; 94668; 94761; 96374; 96375; 96376; 97110; 97116; 97162; 97165; 97530; 97535; 99285; G8978; G8979; J2270; J2405; J7030; J7040; J7120; Q9967

== ENCOUNTER 2018-05-02 12:20 | Inpatient (IN) | payer MEDICARE ==
[~2018-05-02] VITALS: Ht 157.5 cm; Wt 97.5 kg
[~2018-05-02 12:20] MED LIST changes: +METOPROLOL SUC200 MG PO
--- NOTE | 2018-05-02 13:17 | NUR ---
PATIENT SBA FROM BATHROOM BACK TO BED. ATTENDS IN PLACE. FAMILY AT BEDSIDE. ON ROOM AIR. CALL LIGHT WITHIN REACH. HOB ELEVATED TO PATIENT'S DESIRED HEIGHT. 200ML YELLOW URINE EMPTIED FROM HAT IN TOILET.
--- NOTE | 2018-05-02 17:49 | NUR ---
PATIENT HAS RESTED MOST OF DAY. WORKED WITH PHYSICAL THERAPY THIS MORNING. MONITOR O2 SATS WHILE UP. ROOM AIR DURING DAY. CPAP AT NIGHT. RIGHT RIBS HAVE 2 LIDODERM PATCHES OVER BRUISED AREA. CHANGED TO SWING BED TODAY. NO IV. PO POTASSIUM REPLACEMENT. DAILY WEIGHTS STARTED. OXYCODONE X1.
--- NOTE | 2018-05-02 19:00 | NUR ---
Bedside report from deyanira dias. pt reports doing well, rn assist w/fww to amb. pt to bathroom to void during report. Lidocaine patches to r chest wall with old brusing noted from pre hosp fall. denies need at this time. call light in reach. pt. alert and oriented - swg pt today. RA and no SOB - cpap at bedside for sleeping. pt will call for assist.
--- NOTE | 2018-05-02 20:38 | NUR ---
PT REQUESTED AND GIVEN PO PAIN MEDICATION FOR RIGHT SIDE RIB PAIN, LIDOCAINE PATCH REMOVED AND DOCUMENTED. REPOSITIONED W/YARN PREPARATION SUPERVISOR. CALL LIGHT IN REACH, DENIES NEEDS
--- NOTE | 2018-05-02 20:58 | NUR ---
CHARGE NURSE ROUNDING NOTE: IN BED, PLAYING WITH PHONE AND WATCHING TV. REPOSITIONED, WAS MEDICATED EARLIER PER C/O BACK PAIN, COMOFRTABLE AT THIS TIME. SCDS IN PLACE. KPAD AT BEDSIDE. CALL LIGHT AND DRINKS WITHIN HANDS REACH. NO REQUESTS AT THIS TIME
--- NOTE | 2018-05-02 21:59 | NUR ---
HELPED PATIENT FROM BATHROOM TO BED USING WALKER. ICE WATER REFILLED. CALL LIGHT IN REACH.
--- NOTE | 2018-05-02 22:49 | NUR ---
1 PA FROM BATHROOM TO BED. CALL LIGHT IN REACH.
--- NOTE | 2018-05-02 23:00 | NUR ---
PATIENT CALLED TO HAVE HER CPAP ON. PUT STERILE WATER ON. PATIENT IS ON CPAP NOW. CALL LIGHT WITHIN REACH.
--- NOTE | 2018-05-03 01:18 | NUR ---
EYES CLOSED, RRR. CALL LIGHT IN REACH.
--- NOTE | 2018-05-03 05:36 | NUR ---
uneventful night. last PO pain meds taken at start of shift. appears to have slept well.
--- NOTE | 2018-05-03 05:46 | NUR ---
pt amb with fww and assist to br, denies needs.
--- NOTE | 2018-05-03 06:34 | NUR ---
up in chair, c/o ribs pain 910 pain, medicated with Oxycodone 5mg. no other requests
--- NOTE | 2018-05-03 07:40 | NUR ---
REPORT RECEIVED FROM CORKY CATALAN, PATIENT IS UP IN THE CHAIR WAITING FOR BREAKFAST. SHE HAS NO C/O PAIN AT THIS TIME. PATIENT IS ALERT AND ORIENTED AT THIS TIME. SHE AMBULATES TO THE BATHROOM WITH STANDBY ASSIST AND HER FWW. PATIENT IS STEADY ON HER FEET.
--- NOTE | 2018-05-03 10:54 | NUR ---
PATIENT UP AMBULATING WITH PHYSICAL THERAPY AT THIS TIME
--- NOTE | 2018-05-03 11:52 | NUR ---
PATIENT UP TO THE SIDE OF THE BED TO EAT LUNCH.
--- NOTE | 2018-05-03 12:00 | NUR ---
PATIENT CALLED AND SAID SHE WAS DONE WITH HER LUNCH. WHILE I WAS IN THE ROOM SHE SAID SHE HAD TO GO TO THE BATHROOM. AFTER SHE WAS DONE I HELPED HER BACK TO BED AND GOT HER A WARM BLANKET.
--- NOTE | 2018-05-03 14:43 | NUR ---
PATIENT IS SLEEPING.
--- NOTE | 2018-05-03 15:59 | NUR ---
ASSUMED PATIENT CARE FROM LAKISHA CATALAN. FAMILY AT BEDSIDE, VISITING WITH PT. INQUIRED ABOUT PT NEEDS, REINFORCED THE NEED FOR ASSIST WITH AMBULATION. REMINDED PT TO USE CALL LIGHT. WILL CONTINUE TO MONITOR.
--- NOTE | 2018-05-03 16:30 | NUR ---
ADMINISTERED OXY PER PT REQUEST. HAD GOTTEN OUT OF BED AND WAS QUITE PAINFUL. 10\10
--- NOTE | 2018-05-03 18:28 | NUR ---
PT HAS HAD A GOOD SHIFT, FAMILY VISITING TODAY AT BEDSIDE. PT USING LIDOCAINE PATCH TO RIBS AND OXYCODONE PRN FOR PAIN. USING WALKER WITH ASSIST. PT USING CPAP FOR SLEEP, ROOM AIR FOR DAYTIME. PT NEEDS BED ALARM SHE SOMETIMES FORGETS TO PUT DIRECTOR MERIT SYSTEM LIGHT. PT USING SCDS FOR SLEEP.
--- NOTE | 2018-05-03 21:04 | NUR ---
Coop with assessment, up to brp, voided, plus was incontinent of urine, attend chaged by self. back to bed, one person assist and fww. bed alarm on. Lidoderm patch r back removed, bruising r side healing
--- NOTE | 2018-05-03 23:33 | NUR ---
RESTING, NO DISTRESS. BED ALARM ON
--- NOTE | 2018-05-04 00:30 | NUR ---
resting, eyes closed. no c/o pain, bed alarm on, high fall risk precautions inplace, call light and fluids within hands reach
--- NOTE | 2018-05-04 01:36 | NUR ---
Resting, no s/sx distress. Bed alarm on, fall safety precautions on. call light withing hands reach
--- NOTE | 2018-05-04 05:44 | NUR ---
resting, no distress, call light and fluid within hands reach
--- NOTE | 2018-05-04 06:42 | NUR ---
SLEPT THIS SHIFT, USES CPAP AT HS, WAS MEDICATED X1 WITH OXYCODONE 5MG PO C/O BACK PAIN, USES ONE ASSIST AND FWW TO GET UP TO BRP, TOLERATED FAIR. NO C/O SOB WITH EXERTION NOTED OR STATED. CONTINUES ON SWING BED STATUS
--- NOTE | 2018-05-04 06:43 | NUR ---
MEDICATED WTIH OXYCODONE 5MG PO C/O /10 R BACK POIN, AWAKE, WATCHING TV.
--- NOTE | 2018-05-04 07:31 | NUR ---
MORNING ASSESSMENT AND MEDICATIONS DUE. THIS RN TO BEDSIDE. PT WATCHING TV. PT ASSISTED TO ORDER BREAKFAST. PT REPORTS 6/10 PAIN ON RIGHT SIDE "ESPICIALLY WITH MOVING." ASSESSMENT DONE. MEDICATIONS GIVEN (SEE MAR). BED RAILS UP. CALL LIGHT WITHIN REACH.
--- NOTE | 2018-05-04 07:41 | NUR ---
PATIENT RESTING IN BED, RN IN ROOM. THIS J[employer] SOFTWARE ASSISTED PATIENT TO WASH HANDS AND FACE WITH WARM WASH CLOTH. CLEAN GOWN SET UP IN BATHROOM FOR PATIENT. CALL LIGHT IN REACH, NO OTHER NEEDS AT THIS TIME.
--- NOTE | 2018-05-04 09:26 | NUR ---
PT CALL LIGHT ON. THIS RN TO BEDSIDE. PHYSICAL THERAPY WORKING WITH PT. PHYSICAL THERAPY ASSISTED PT TO RESTROOM. THIS RN HELPS PT CHANGED HER DEPENDS, WIPE AND DRESS FOR AMBULATION WITH PHYSICAL THERPY. PT SPEAKS WITH DAUGHTER ON PHONE. PT WALKING WITH PHYSICAL THERAPY AND FWW. NO ADDITIONAL REQUESTS OR COMPLAINTS.
--- NOTE | 2018-05-04 10:17 | NUR ---
PATIENT RESTING IN BEDSIDE RECLINER, PATIENT LOOKS SAD AND APPEARS TO BE CRYING. PATIENT STATES SHE IS "JUST TIRED". PATIENT APPEARS TO NOT WANT TO TALK ABOUT IT. PATIENT CALL LIGHT IN REACH. FRESH ICE WATER AT BEDSIDE TABLE. NO OTHER NEEDS AT THIS TIME.
--- NOTE | 2018-05-04 11:54 | NUR ---
THIS RN TO ROOM TO CHECK ON PT. PT UP AND WORKING WITH OCCUPATIONAL THERAPY. PT REPORTS 6/10 PAIN THAT IS "OK FOR NOW." PT ASKS ABOUT TAKING HER OXYBUTYN FROM HOME "BECAUSE I HAVEN'T BEEN TAKING IT WHILE I'VE BEEN HERE." PT TOLD NOT TO TAKE ANY MEDICAITONS FROM HOME BECAUSE THEY MAY INTERACT WITH WHAT SHE IS RECIEVING WHILE SHE IS HERE. PT TOLD THAT THIS RN WILL CHECK WITH MD ABOUT TAKING THE MEDICATION OR NOT. MD CONSULTED. MD STATES SHE DOESN'T RECCOMEND THIS MEDICATION AT THIS TIME. PT UPDATED. PT IS AGREEABLE TO THIS PLAN. PT EATING LUNCH. NO ADDITIONAL REQUESTS OR COMPLAINTS AT THIS TIME.
--- NOTE | 2018-05-04 12:18 | NUR ---
PT CALL LIGHT ON. PT REQUESTS ASSISTANCE UP TO RESTROOM AND BACK TO BED. PT ASSISTED UP TO RESTROOM. VOIDS WITHOUT ISSUE. DEPENDS SATURATED. DEPENDS CHANGED. PT BACK TO BED WITH USE OF FWW. PT PAIN FUL GETTING INTO BED BUT MUCH BETTER UP RELAXING. PT NOW AT 6/10 ON PAIN SCALE. HEAT THERAPY IN PLACE TO RIGHT SIDE AND BACK. PT WATCHING TV. NO REQUESTS OR COMPLAINTS.
--- NOTE | 2018-05-04 12:44 | NUR ---
PT REPORTING 6/10 PAIN THAT "IS WORSE WHEN I MOVE." THIS RN TO ROOM. PAIN MEDICATION GIVEN (SEE MAR). PT VISITING WITH FAMILY. NO ADDITIONAL REQUESTS OR COMPLAINTS.
--- NOTE | 2018-05-04 14:04 | NUR ---
PT UP AND WALKING WITH P.T. SHE HAD A SMILE ON HER FACE AND SEEMED TO BE ENJOYING BEING UP. SHE WAS VERY FOCUSED, WILL CONTINUE TO FOLLOW.
--- NOTE | 2018-05-04 15:41 | NUR ---
PT RESTING WITH EYES CLOSED, LIGHT DIMMED, BREATHING REGULAR AND EVEN.
--- NOTE | 2018-05-04 18:10 | NUR ---
pt resting all afternoon. sleeping soundly. lidoderm patches on right rib area. attends in place for dribbling. daily weight 214.8#. no iv. PT/OT.
--- NOTE | 2018-05-04 19:29 | NUR ---
IN ROOM FOR REPORT, PT WOKE UP, SHE DENIES NEEDS AT THIS TIME. CALL LIGHT IS WITHIN REACH.
--- NOTE | 2018-05-04 22:24 | NUR ---
ADMINISTERED EVENING MEDICATIONS AND HELPED PT GET DRESSED FOR BED. FRESH WATER AT BEDSIDE AND PT DENIES FURTHER NEEDS. CALLED R.T. TO START CPAP FOR THE NIGHT.
--- NOTE | 2018-05-04 23:21 | NUR ---
PT IS RESTING WITH EYES CLOSED, RESPIRATIONS ARE EVEN AND NONLABORED WITH CPAP ON, CALL LIGHT IS WITHHIN REACH.
--- NOTE | 2018-05-05 01:08 | NUR ---
PT IS RESTING WITH EYES CLOSED, RESPIRATIONS ARE EVEN AND NONLABORED. CALL LIGHT IS WITHIN REACH.
--- NOTE | 2018-05-05 01:56 | NUR ---
HELPED PT TO RESTROOM AND BACK TO BED. CALL LIGHT IS WITHIN REACH AND BED ALARM IS ON.
--- NOTE | 2018-05-05 02:35 | NUR ---
PT CALLED REQUESTING PAIN MED, 5MG OF OXYCODONE GIVEN BY ANOTHER RN.
--- NOTE | 2018-05-05 03:54 | NUR ---
PT IS RESTING WITH EYES CLOSED, RESPIRATIONS ARE EVEN AND NONLABORED ON CPAP. CALL LIGHT IS WITHIN REACH.
--- NOTE | 2018-05-05 04:50 | NUR ---
PT IS AWAKE IN BED WITH CPAP ON. SHE DENIES NEEDS AT THIS TIME. CALL LIGHT IS WITHIN REACH.
--- NOTE | 2018-05-05 04:51 | NUR ---
PT SLEPT ON AND OFF THROUGH THE NIGHT. SHE REQUIRED OXYCODONE AT 0235. SHE IS A SBA WITH FWW TO THE RESTROOM. SHE IS VOIDING QS URINE. SHE WEARS HOME CPAP AT NIGHT. SHE IS ON SWING BED FOR DECONDITIONING AND PAIN MANAGEMENT. SHE HAS NO IV SITE.
--- NOTE | 2018-05-05 06:13 | NUR ---
IN ROOM TO ADMINISTER MEDICATION. PT DENIES NEEDS AT THIS TIME.
--- NOTE | 2018-05-05 08:26 | NUR ---
PT SITTING UP AT BEDSIDE EATING BREAKFAST NOW. WAITING TO PUT LIDOCAINE PATCH ON UNTIL AFTER SHOWER PER PATIENT REQUEST.
--- NOTE | 2018-05-05 10:19 | NUR ---
PT SHOWERED BY CASEY CATALAN THIS MORNING. LINENS CHANGED BY THIS RN WHILE PATIENT UP IN SHOWER. NEW IV BEING PLACED BY MOHAMUD CATALAN NOW FOR IVF REHYDRATION D/T ELEVATED CREATININE. FAMILY AT BEDSIDE. WATCHING TV.
--- NOTE | 2018-05-05 13:30 | NUR ---
pt back to bed. assisted by Roseline CATALAN. Resting comfortably now.
--- NOTE | 2018-05-05 14:52 | NUR ---
PT WALKING IN [place] WITH P.T. PT VERY INTENT AND FOCUSED ON THE TASK AT HAND. SHE DID SMILE AND SAY JUJU. WILL CONTINUE TO FOLLOW NEEDED
--- NOTE | 2018-05-05 15:00 | NUR ---
TALKED WITH PT AND HER FAMILY THAT WAS AT THE BEDSIDE ABOUT PT RETURNING HOME. PT IS A LITTLE WARY OF RETURNING HOME, NOT FEELING SURE THAT SHE IS ABLE TO CARE FOR HERSELF WHEN SHE RETURNS HOME. REASSURED HER. FAMILY STATES THAT THERE WILL BE PERSONS AVAILABLE TO HELP HER WHEN SHE RETURNS HOME.
--- NOTE | 2018-05-05 16:39 | NUR ---
OCCUPATIONAL THERAPY WORKING WITH PATIENT NOW.
--- NOTE | 2018-05-05 18:04 | NUR ---
SWING BED. WORKED WITH PHYSICAL THERAPY AND OCCUPATIONAL THERAPY TODAY. SHOWER THIS MORNING. 1 LIDOCAINE PATCH ON RIGHT SIDE. CPAP AT NIGHT WITH SLEEP. FAMILY IN THIS MORNING. JUSTIN ORDERED IVF FOR ELEVATED CREATININE. LABS TO BE REDRAWN AT 2100. SBA/1PA FWW. NS @ 125 TO FLUSH KIDNEYS. NO BM SINCE 05/02.
--- NOTE | 2018-05-05 19:25 | NUR ---
IN ROOM FROM REPORT, PT IS DENIES NEEDS AT THIS TIME. CALL LIGHT IS WITHIN REACH.
--- NOTE | 2018-05-05 20:02 | NUR ---
IN ROOM TO ASSESS PT AND ADMINISTER MEDICATIONS. PT DENIES PAIN AT THIS TIME. CALL LIGHT IS WITHIN REACH.
--- NOTE | 2018-05-05 22:38 | NUR ---
PT IS RESTING WITH EYES CLOSED, RESPIRATIONS ARE EVEN AND NONLABORED. CALL LIGHT IS WITHIN REACH.
--- NOTE | 2018-05-06 00:23 | NUR ---
PT IS RESTING WITH EYES CLOSED, RESPIRATIONS ARE EVEN AND NONLABORED. CALL LIGHT IS WITHIN REACH.
--- NOTE | 2018-05-06 01:39 | NUR ---
ENTERED PTS ROOM TO ASK HER TO PUT CPAP ON AND SHE STATES SHE HAD IT ON AND JUST REMOVED IT. SHE STATES PAIN IS 4/10 AT THIS TIME AND OXYCODONE WAS ADMINISTERED. PT DENIES NEEDS AT THIS TIME. CALL LIGHT IS WITHIN REACH.
--- NOTE | 2018-05-06 02:49 | NUR ---
PT IS RESTING WITH EYES CLOSED, RESPIRATIONS ARE EVEN AND NONLABORED WITH CPAP ON. CALL LIGHT IS WITHIN REACH.
--- NOTE | 2018-05-06 04:06 | NUR ---
PT IS RESTING WITH EYES CLOSED, RESPIRATIONS ARE EVEN AND NONLABORED WITH CPAP ON. CALL LIGHT IS WITHIN REACH.
--- NOTE | 2018-05-06 04:16 | NUR ---
PT AMBULATES SBA WITH FWW. IV IS SL. LIDODERM PATCH REMOVED AT HS. SHE REQUIRED 1 DOSE OF OXYCODONE FOR PAIN AT 0138. NO BM YET, SHE WAS GIVEN COLACE LAST NIGHT. CARDIAC DIET. PT WILL CONTINUE TO WORK WITH PT AND OT UNTIL DC.
--- NOTE | 2018-05-06 06:15 | NUR ---
HELPED PT TO RESTROOM AND BACK TO BED. CALL LIGHT IS WITHIN REACH.
--- NOTE | 2018-05-06 06:49 | NUR ---
HELPED PT TO SCALE AND BACK TO BED, ADMINISTERED OXYCODONE FOR 6/10 PAIN. PT DENIES FURTHER NEEDS AT THIS TIME.
--- NOTE | 2018-05-06 08:30 | NUR ---
PT RESTING AT BEDSIDE, NO DISTRESS. PT DENIES PAIN, SOB, NAUSEA. PT EATING WELL. SIGNIFICANT BRUISING TO INJURY SITE ON RIGHT RIB. WILL CONTINUE TO MONITOR.
--- NOTE | 2018-05-06 12:33 | NUR ---
PT AMBULATED WITH ASSIST IN HALLWAY TODAY, TOLERATED WELL. PT EATING LUNCH AT BEDSIDE, NO DISTRESS, NO CHANGES IN CONDITION. WILL CONTINUE TO MONITOR.
--- NOTE | 2018-05-06 17:55 | NUR ---
PT HAS HAD A GOOD SHIFT, UP AMBULATING WITH PT. PT HAS HAD MINIMAL EXERTIONAL SOB. PAIN MANAGEMENT PRN OXYCODONE HAS BEEN SUFFICIENT. PT HAS WALKED WITH STANDBY ASSIST. ONE EPISODE OF BLADDER INCONTINENCE.
--- NOTE | 2018-05-06 20:00 | NUR ---
PATIENT RESTING QUIETLY IN BED VISITING WITH FAMILY. CALL LIGHT IN REACH.
--- NOTE | 2018-05-06 21:06 | NUR ---
PATIENT'S IV IS LEAKING WHEN FLUSHED. CALLED AND HE GAVE AN ORDER THE IV COULD BE DC'D AND STAY OUT. THIS WAS DONE. PATIENT GIVEN 5MG OF OXYCODONE FOR 8 RT RIB PAIN. LIDO PATCH REMOVED. PATIENT RESTING QUIETLY. FAMILY AT BEDSIDE.
--- NOTE | 2018-05-06 23:36 | NUR ---
PATIENT RESTING QUIETLY, EYES CLOSED, RESPIRATIONS EVEN AND REGULAR, PATIENT HAS CPAP ON. CALL LIGHT IN REACH.
--- NOTE | 2018-05-07 01:07 | NUR ---
UP TO BRP, VOIDED, PLUS WAS INCONTINENT OF URINE, ATTEND CHANGED, ALLAN CARE DONW BY SELF, BACK TO BED, SOB WITH EXERTION NOTED. CPAP BACK ON. ONE PERSON ASSIST AND FWW
--- NOTE | 2018-05-07 03:00 | NUR ---
PATIENT RESTING QUIETLY, EYES CLOSED, RESPIRATIONS REGULAR AND EVEN ON CPAP, CALL LIGHT IN REACH.
--- NOTE | 2018-05-07 05:00 | NUR ---
PATIENT CONTINUES TO REST QUIETLY, EYES CLOSED RESPIRATIONS EVEN AND REGULAR, REMAINS ON HER CPAP, CALL LIGHT IN REACH.
--- NOTE | 2018-05-07 06:00 | NUR ---
PATIENT HAS SLEPT MOST OF THE NIGHT AND HAS NO NEEDED ANY MORE PAIN MEDICATION SINCE 9PM. PATIENT RESTING QUIETLY STILL AT THIS TIME. RESPIRATIONS REMAIN EVEN AND REGULAR, AND CPAP IS STILL ON. CALL LIGHT IN REACH.
--- NOTE | 2018-05-07 08:34 | NUR ---
PT UP TO CHAIR, EATING BREAKFAST, USING CALL LIGHT APPROPRIATELY. PT USING WALKER WITH MINIMAL ASSIST. PT DENIES NAUSEA, PAIN IS WORSE ONLY WITH MOVEMENT. PT DENIES HAVING A BOWEL MOVEMENT FOR SEVERAL DAYS, WILL BE GIVING ADDITIONAL BOWEL MEDICATIONS THIS AM. WILL CONTINUE TO MONITOR.
[2018-05-07] MEDS ORDERED: OXYCODONE HCL5 MG PO (12:07)
[2018-05-07] MEDS ORDERED: COLCRYS0.6 MG PO (12:07)
[2018-05-07] MEDS ORDERED: ELIQUIS2.5 MG PO (12:07)
--- NOTE | 2018-05-07 12:10 | NUR ---
PT SITTING IN CHAIR, FAMILY FROM [facility] VISITING. PT ADMITTED SHE HAD NOT HAD A BM YET, AND NEEDS TO TO BE DC'D. G. DAUGHTER IS TRYING TO STAY FOR A MONTH TO CARE FOR PT AT HOME. PT INQUIRED ABOUT HOME HEALTH.PASSED INFO ON TO MASSAGE THERAPY INSTRUCTOR KACIE AND [facility] DISCHARGE PL. EXTENDED A BLESSING, WILL FOLLOW NEEDED
--- NOTE | 2018-05-07 13:30 | NUR ---
IDT MEETING WITH PATIENT. PATIENT HAS MET OT GOALS. ONLY SUGGESTION WAS A PIECE OF EQUIPMENT TO HELP HER WITH TOILETING FOR REACH, FAMILY IS PURCHASING. PT ABLE TO GET EASY MEALS IN [place] AND GET AROUND KITCHEN. PT GETTING IN-OUT BED SLOWLY. MOST LIKELY WILL SLEEP IN RECLINER FOR NOW. FAMILY MET WITH OT, THEY WILL BE CHECKING IN WITH HER FREQUENTLY. PATIENT HAS MET PHYSICAL THERAPY GOALS OF IN/OUT BED ON OWN, 6MIN WALK OVER 100FT. THEY FEEL SHE WILL BE DISCHARGED FROM THEIR SERVICES TOMORROW. THEY DO NOT NOT FEEL SHE NEEDS HOME HEALTH VISITS. PLAN WILL BE FOR COMMUNITY HEALTH WORKERS FROM [facility] TO GO TO HOME NEXT WEEK AND DO AN ASSESSMENT TO DETERMINE IF SHE WILL NEED ANY COMMUNITY RESOURCES. PATIENT FEELS SHE WILL BE READY TO GO HOME TOMORROW.
--- NOTE | 2018-05-07 14:00 | NUR ---
DISCUSSED WITH PT THE NEED FOR USING BOWEL PROTOCOL AT HOME DUE TO NARCOTICS USE. PT DENIES DISTRESS, NO BM TODAY. UP WITH PT, AMBULATION TOLERATED WELL. PT STATES PAIN TO RIB IS WORSE WITH MOVEMENT. WILL CONTINUE TO MONITOR.
--- NOTE | 2018-05-07 18:20 | NUR ---
PT HAS DONE WELL TODAY. OT HAS STATED THAT SHE HAS MET GOALS, SHE WAS UP WITH PT TWICE THIS SHIFT FOR AMBULATION AND DID WELL. PT HAS BEEN MEDICATED FOR PAIN, PRIMARILY WITH MOVEMENT. PT IS STABLE AND HAS DENIED ANY ADDITIONAL COMPLAINTS. ANTICIPATED DISCHARGE TOMORROW OR THE WEEKEND.
--- NOTE | 2018-05-07 19:10 | NUR ---
REPORT FROM DAYSHIFT RN. PATIENT RESTING QUIETLY IN BED AT THIS TIME WATCHING TV. NO NEEDS AT THIS TIME. CALL LIGHT IN REACH. WILL BE BACK TO DO ASSESSMENT.
--- NOTE | 2018-05-07 19:55 | NUR ---
CHARGE NURSE ROUNDING NOTE:, PT AWAKE, UP IN BED, USES CPAP AT HS, NO C/O PAIN. PT AWARE OF POSSIBLE AM DC, CALL LIGHT AND FLUIDS WITHIN HANDS REACH
--- NOTE | 2018-05-07 20:51 | NUR ---
PATIENT RESTING IN BED. RT RIB PAIN 6/10 AT THIS TIME AND 1 PO 5MG OXYCODONE GIVEN. PATIENT HAD A LARGE INCONTINENT URINE EPISODE IN THE BED I LITTLE WHILE AGO AND WAS WASHED UP AND LINEN CHANGED BY PRN PHYSICAL THERAPIST. PATIENT HAS FRESH WATER AND CALL LIGHT IS IN REACH. EVENING MEDS GIVEN. PATIENT CONTINUES TO WATCH TV AND HAS NO FURTHER NEEDA AT THIS TIME. CALL LIGHT IS IN REACH.
--- NOTE | 2018-05-07 21:49 | NUR ---
VITALS AND I&OS DONE AND CHARTED. LET HER RN SIDNEY KNOW OF LOW DIASTOLOIC B\P. DID A COMPLETE BED CHANGE DUE TO URINE INCONTINENCE. HELPED HER TO THE BATHROOM AND BACK TO BED. FRESH WATER GIVEN. BEDSIDE TABLE AND CALL LIGHT WITHIN REACH.
--- NOTE | 2018-05-07 23:13 | NUR ---
PATIENT RESTING QUIETLY, RESPIRATIONS REGULAR AND EVEN, EYES CLOSED, WEARING CPAP, CALL LIGHT IN REACH.
--- NOTE | 2018-05-08 01:35 | NUR ---
PATIENT RESTING SUPINE AND REMAINS ON HER CPAP, RESPIRATIONS EVEN AND REGULAR, EYES CLOSED, CALL LIGHT IS WITHIN REACH.
--- NOTE | 2018-05-08 03:14 | NUR ---
PATIENT REMAINS ON CPAP AND CONTINUES TO REST QUIETLY WITH EYES CLOSED, RESPIRATIONS EVEN AND EGULAR. PATIENT'S CALL LIGHT IS WITHIN REACH.
--- NOTE | 2018-05-08 06:45 | NUR ---
I&OS DONE AND CHARTED. DAILY WEIGHT DONE AND CHARTED. HELPED PT TO THE BATHROOM AND BACK TO BED. PT HAD URINATED ON THE FLOOR. I CLEANED UP WITH THE RED WIPES. WIPED HER DOWN WITH SOME BABY WIPES. NEW SOCKS GIVEN AND ATTENDS PUT ON.
--- NOTE | 2018-05-08 06:53 | NUR ---
PATIENT SLEPT MOST OF THE NIGHT AFTER PM OXYCODONE GIVEN. PATIENT REMAINED ON CPAP THROUGH THE NIGHT AND HAD A LARGE AMOUNT OF INCONTINENT URINE IN THE BED THIS AM. PATIENT BACK IN BED AT THIS TIME AN GOT ANOTHER 5MG OXYCODONE FOR RT RIB PAIN 04/19. PATIENT WAS ALSO UP TO USE THE BATHROOM TO TRY AND HAVE A BM, BUT THE BOWEL PROGRAM SHE IS ON SO FAR HAS NOT PRODUCED A BM. PATIENT JUST GIVEN A SUPPOSITORY AND IS BACK IN BED WITH A FRESH ATTENDS AND CHUCKS ON THE BED.
--- NOTE | 2018-05-08 07:18 | NUR ---
RECIEVED BEDSIDE REPORT FROM HOSSEIN DORSEY. PT AWAKE IN BED. PT LOOKS UNCOMFORTABLE, HAD A SUPPOSITORY PLACED THIS AM. NO RESULTS AT THIS TIME. PT REPORTS PAIN IS WELL CONTROLLED WITH PRN MEDS.
--- NOTE | 2018-05-08 15:12 | NUR ---
PT RESTING IN BED, ENGAGED IN A CONVERSATION ON HER PHONE. I WILL CHECK BACK AGAIN
== END 2018-05-08 14:58 | disposition home or self-care (01) | DRG 559 ==
LOC: MS 12:20
PROVIDERS: ADMIT Internal Medicine
DX: S22.41XD Multiple fractures of ribs, right side, subsequent encounter for fracture with routine healing (principal); J96.01 Acute respiratory failure with hypoxia; N17.9 Acute kidney failure, unspecified; J98.11 Atelectasis; M62.81 Muscle weakness (generalized); M62.838 Other muscle spasm; I12.9 Hypertensive chronic kidney disease with stage 1 through stage 4 chronic kidney disease, or unspecified chronic kidney disease; N18.3 Chronic kidney disease, stage 3 (moderate); N28.1 Cyst of kidney, acquired; I48.2 Chronic atrial fibrillation; E03.9 Hypothyroidism, unspecified; G47.33 Obstructive sleep apnea (adult) (pediatric); K21.9 Gastro-esophageal reflux disease without esophagitis; M10.9 Gout, unspecified; E78.5 Hyperlipidemia, unspecified; R19.7 Diarrhea, unspecified; I69.941 Monoplegia of lower limb following unspecified cerebrovascular disease affecting right dominant side; Z79.01 Long term (current) use of anticoagulants; Z79.83 Long term (current) use of bisphosphonates; Z79.899 Other long term (current) drug therapy; Z88.6 Allergy status to analgesic agent; Z88.0 Allergy status to penicillin
CPT/HCPCS: 36415; 80048; 82570; 84300; 84540; 85025; 94668; 97110; 97116; 97166; 97530; 97535; J7030

== ENCOUNTER 2022-03-31 12:56 | Emergency (ER) | payer MEDICARE, OTHER ==
[~2022-03-31] VITALS: Ht 157.5 cm; Wt 89.9 kg
[~2022-03-31 12:56] MED LIST changes: +COLCRYS0.6 MG PO; +ELIQUIS2.5 MG PO; -ESCITALOPRAM OX20 MG PO; +LEXAPRO10 MG PO
[2022-03-31] MEDS ORDERED: PROBENECID-COL1 EACH PO (13:53)
[2022-03-31] MEDS ORDERED: VITAMIN D325 MCG PO (13:54)
[2022-03-31] MEDS ORDERED: K-TAB ER20 MEQ PO (13:56)
[2022-03-31] MEDS ORDERED: FLONASE ALLERG9.9 ML NAS (13:56)
[2022-03-31] MEDS ORDERED: BENICAR20 MG PO (13:56)
[2022-03-31] MEDS ORDERED: COLACE100 MG PO (13:57)
== END 2022-03-31 16:25 | disposition short-term general hospital (02) ==
LOC: ED 12:56
DX: H54.62 Unqualified visual loss, left eye, normal vision right eye (principal); W19.XXXA Unspecified fall, initial encounter; W22.8XXA Striking against or struck by other objects, initial encounter; I10 Essential (primary) hypertension; E03.9 Hypothyroidism, unspecified; Z87.891 Personal history of nicotine dependence; Z88.0 Allergy status to penicillin; Z88.6 Allergy status to analgesic agent; Z79.01 Long term (current) use of anticoagulants; Z79.899 Other long term (current) drug therapy
CPT/HCPCS: 36415; 70450; 70486; 80053; 85025; 85651; 86140

== ENCOUNTER 2022-05-10 20:21 | Inpatient (IN) | payer OTHER, MEDICARE ==
[~2022-05-10] VITALS: Ht 154.9 cm; Wt 92.2 kg
[~2022-05-10 20:21] MED LIST changes: +BENICAR20 MG PO; +COLACE100 MG PO; +FLONASE ALLERG9.9 ML NAS; +K-TAB ER20 MEQ PO; +VITAMIN D325 MCG PO
[2022-05-10] MEDS ORDERED: ELIQUIS5 MG PO (20:34)
--- NOTE | 2022-05-11 01:42 | NUR ---
PT ARRIVES TO FLOOR VIA STRETCHER. PT ABLE TO STAND AND PIVOT TO BSC WITH 2 PA, THEN STAND AND PIVOT TO BED. PT ASSESSMENT COMPLETE. PT ORIENTED X 4, FORGETFUL. BED ALARM PLACED FOR SAFETY. PT STATES THAT PAIN IS WELL CONTROLLED WHILE SHE ISNT MOVING. PT DENIES SOB OR NAUSEA. O2 @ 2, PT REPORTS DISCOMFORT TO BACK WHEN SHE TAKES A DEEP BREATH, NO S/SX OF RESPIRATORY DISTRESS NOTED. LUNG SOUNDS CLEAR. ATTENDS IN PLACE FOR INCONTINENCE. IV FLUSHED WITH 10 ML NS, WNL, PATENT, GOOD BLOOD RETURN NOTED. PT FALLS TO SLEEP QUICKLY. ROOM IN VIEW OF RN STATION WITH CALL LIGHT IN REACH.
--- NOTE | 2022-05-11 03:00 | NUR ---
PT RESTING IN BED WITH EYES CLOSED. RESPIRATIONS EVEN AND UNLABORED. CALL LIGHT IN REACH. BED ALARM ACTIVE. ROOM IN VIEW OF RN STATION WITH CURTAIN OPEN.
--- NOTE | 2022-05-11 04:08 | NUR ---
PT RESTING IN BED WITH EYES CLOSED. RESPIRATIONS EVEN AND UNABLRED. NO S/SX OF RESPIRATORY DISTRESS NOTED. PT DOES NOT WAKE WHILE REGISTERED DENTAL ASSISTANT AT DOORWAY. CALL LIGHT IN REACH. BEDALARM ACTIVE. ROOM IN VIEW OF RN STATION WITH CURTAIN OPEN.
--- NOTE | 2022-05-11 06:56 | NUR ---
PT UP TO BSC AND BACK TO BED WITH 2PA. PT TOLERATED WELL, REPORTS THAT PAIN IS MUCH IMPROVED FROM LAST NIGHT. PT REPORTS 0/10 PAIN WITH TRANSFER. ICE WATER REFILLED. VS OBTAINED, WNL. PT DENIES FURTHER NEEDS AT THIS TIME. BED ALARM ACTIVE. CALL LIGHT IN REACH. ROOM IN VIEW OF RN STATION WITH CURTAIN OPEN.
--- NOTE | 2022-05-11 07:45 | NUR ---
REPORT RECEIVED. PT IN BED. 2L NC IN PLACE. RR NON LABORED. CALL LIGHT IN REACH.
--- NOTE | 2022-05-11 08:34 | NUR ---
ROUND ON PT. PT IS SLEEPING IN BED. WAKES TO VERBAL SIMULI. PT IS ORIENTED. VITALS TAKEN ANS STABLE. PLACED PT ON RA. SATURATIONS MAINTAINED AT 93% WHILE AWAKE. PT WOULD LIKE TO SLEEP FOR A LITTLE LONGER THEN EAT BREAKFAST. WILL ELT PT REST AT THIS TIME.
--- NOTE | 2022-05-11 09:24 | NUR ---
IN FOR ASSESSMENT AND MED PASS. PT IS SLEEPY. LUNGS CLEAR. PT ASKED TO SIT AT EDGE OF BED. WAS ABLE TO WITH SOME ASSISTANCE. REPROTING 3/10 PAIN WITH MOVEMENT. FWW BROUGHT TO BEDSIDE AND PT STOOD INDEPENDENTLY. DID NOT AMBULATE. PT IS AAOX3. WOULD LIKE TO SLEEP SOME MORE. BOWEL TONES ACTIVE. NO N/T. NO N/V.PT SATS 94% ON RA WHILE AWAKE NTHEN DESATS TO 86% WHILES SLEWPING. PT PLACED ON 2 L NC WHILE NAPPING. ENCOURAGED TO BRING IN HOME CPAP. CALL LIGHT IN REACH. DENIES NEEDS. DID NOT EAT BREAKFAST.
[2022-05-11] MEDS ORDERED: OXYBUTYNIN CHLO15 MG PO (10:04)
--- NOTE | 2022-05-11 10:11 | NUR ---
PT OUT AMBULATING HALLS WITH PHYSICAL THERAPY.
--- NOTE | 2022-05-11 13:30 | NUR ---
DISCHARGE INSTRUCTIONS PROVIDED TO PT AND SON. VITALS TAKEN AND STABLE. PT ABLE TO SIT AT SIDE OF BED AND ASSIST IN DRESSING SELF. ALL QUESTIONS FROM FAMILY ANSWERED. IV DC'D AND WNL. PT WHEELED OUT.
== END 2022-05-11 13:30 | disposition home or self-care (01) | DRG 543 ==
LOC: ED 20:21 → MS 05-11 00:44
PROVIDERS: ADMIT Internal Medicine; ATTEND Internal Medicine
DX: M48.56XA Collapsed vertebra, not elsewhere classified, lumbar region, initial encounter for fracture (principal); I69.351 Hemiplegia and hemiparesis following cerebral infarction affecting right dominant side; Z20.822 Contact with and (suspected) exposure to COVID-19; M25.551 Pain in right hip; M54.50 Low back pain, unspecified; F03.90 Unspecified dementia, unspecified severity, without behavioral disturbance, psychotic disturbance, mood disturbance, and anxiety; I10 Essential (primary) hypertension; I48.91 Unspecified atrial fibrillation; E03.9 Hypothyroidism, unspecified; E78.00 Pure hypercholesterolemia, unspecified; Z96.641 Presence of right artificial hip joint; Z87.891 Personal history of nicotine dependence; Z90.49 Acquired absence of other specified parts of digestive tract; Z95.0 Presence of cardiac pacemaker; Z90.89 Acquired absence of other organs; Z90.710 Acquired absence of both cervix and uterus; Z98.890 Other specified postprocedural states; Z88.0 Allergy status to penicillin; Z88.8 Allergy status to other drugs, medicaments and biological substances; Z79.01 Long term (current) use of anticoagulants; Z79.899 Other long term (current) drug therapy; W01.0XXA Fall on same level from slipping, tripping and stumbling without subsequent striking against object, initial encounter; Y92.009 Unspecified place in unspecified non-institutional (private) residence as the place of occurrence of the external cause
CPT/HCPCS: 36415; 72100; 72131; 73502; 80053; 83735; 85025; 85610; 85730; 87502; 96374; 96375; 96376; 97161; 99285-25; A9270; C9803; J1170; J2405; U0003

== ENCOUNTER 2022-08-20 15:42 | Inpatient (IN) | payer MEDICARE ==
[~2022-08-20] VITALS: Ht 154.9 cm; Wt 84.3 kg
[~2022-08-20 15:42] MED LIST changes: +ELIQUIS5 MG PO; +OXYBUTYNIN CHLO15 MG PO
--- NOTE | 2022-08-20 21:56 | EKG ---
[facility] [address] [facility] [place] [address] Signed Atrial-paced rhythm with prolonged AV conduction ST \T\ T wave abnormality, consider inferior ischemia ST \T\ T wave abnormality, consider anterolateral ischemia Abnormal ECG When compared with ECG of 09-OCT-2017 14:42, Electronic atrial pacemaker has replaced Sinus rhythm Non-specific change in ST segment in Anterior leads T wave inversion now evident in Inferior leads T wave inversion now evident in Anterolateral leads Confirmed by JANNET JEWELL MD ([id number] on 08/20/2022 9:56:04 PM Electronically Signed By: JANNET JEWELL MD [id number] PATIENT NAME: CARLOS NARAYANAN Electrocardiogram DATE OF : 36 PHYSICIAN: JANNET JEWELL MD REPORT #: [id number] REPORT IS CONFIDENTIAL AND NOT TO BE RELEASED WITHOUT AUTHORIZATION
[2022-08-20] MEDS ORDERED: MELATONIN10 MG PO (22:33)
[2022-08-20] MEDS ORDERED: BENADRYL25 MG PO (22:34)
[2022-08-20] MEDS ORDERED: ALLEGRA-D 24 H1 EACH PO (22:34)
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
--- NOTE | 2022-08-21 02:39 | NUR ---
PT DID NOT HAVE HOME CPAP - VITALS DONE WHILE SLEEPING, 84% RA - 2L NC PLACED TO BRING SATS TO 95-97%. PT AWAKENED FOR PO MED. SMILES AND GOES BACK TO SLEEP - STRIPPER AND TAPER ASSISTED TO REPOSITION.
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
--- NOTE | 2022-08-21 07:06 | NUR ---
RECIEVED SHIFT REPORT. PT RESTING IN BED AT THIS TIME WITH EYES CLOSES. CALL LIGHT WITHIN REACH.
--- NOTE | 2022-08-21 08:07 | NUR ---
CALLED DR LIN REGARDING ELEVATIONS IS AST, ALT AND ALK PHOS, NO NEW ORDERS RECIEVED, STATED TO CONTINUE MONITORING. DISCUSSED NO NON OPIOID PAIN MEDICATIONS ORDERED. ORDER RECEIVED FOR ANGIE, SEE ORDERS.
--- NOTE | 2022-08-21 08:31 | NUR ---
Call from pts Nancy MONTERO, pt lives with her. Pt has minimal issues getting into home with assist. Pt is able to move around the home with a walker. Has difficulty showering and getting to the bathroom and cleaning self. Requires assist with this. [facility] stating pt needs placement to SNF as she needs to be baseline. [facility] stating pt has had recent TIA and sm vasquez. Pt just finished antibiotics for UTI, UA showing +4 bacteria. [facility] states pt is usually clear in her thought process if she doesnt have a UTI. She states they will take any SNFin the area as pt has to be at baseline to return to their home. Will check for bed availability and send charts.
--- NOTE | 2022-08-21 08:44 | NUR ---
Chart faxed to [facility].
--- NOTE | 2022-08-21 09:00 | NUR ---
PT IN CHAIR RESTING, EYES CLOSED. CALL LIGHT WITHIN REACH.
--- NOTE | 2022-08-21 11:15 | NUR ---
MORNING ASSESSMENT COMPLETE. PT DENIES ANY PAIN AT THIS TIME. PT LUNG SOUNDS ARE DIMINISHED BILAT LOWER LOBES. PT ALERT TO SELF AND PLACE, UNAWARE OF SITUATION AND DATE. INSTRUCTED ON I.S. USE 10 TIMES. PT TOLERATED WELL WITH NO COMPLAINTS OF PAIN. CALL LIGHT WITHIN REACH.
--- NOTE | 2022-08-21 11:49 | NUR ---
IN TO CHECK ON PT. MANUFACTURING JOB TITLES ASKED IF PT HAD CALLED TO GET BACK INTO THAT CHAIR FROM THE COMMODE. NO CALL LIGHTS HAD GONE OFF. THIS RN WENT INTO ROOM TO CHECK ON PT. PT SITTING IN CHAIR. FAMILY MEMBER IN ROOM ON THE PHONE. COMMODE EMPTIED. REITERATED TO PT TO USE CALL LIGHT FOR HELP. PT VERBALIZES UNDERSTANDING. THIS RN LET ELISABETH ROBERTS KNOW AND TO CONTINUE TO REINFORCE USE OF CALL LIGHT WITH PT AND FAMILY.
--- NOTE | 2022-08-21 12:36 | NUR ---
RN PT ROUNDING. PT IS USING I.S., USED 10 TIMES. PT TOLERATING WELL AND DENIES PAIN. FAMILY AT BEDSIDE. CALL LIGHT WITHIN REACH.
--- NOTE | 2022-08-21 13:33 | NUR ---
PT IN RECLINER WATCHING TV. CALL LIGHT WITHIN REACH. DENIES FURTHER NEEDS AT THIS TIME.
--- NOTE | 2022-08-21 13:34 | NUR ---
PT WALKING HALLS WITH THERAPY.
--- NOTE | 2022-08-21 14:28 | NUR ---
PT IN IN RECLINER RESTING. PT USED THE I.S. 10 TIMES WITHOUT DIFFICULTY AND DENIED PAIN. CALL LIGHT WITHIN REACH. DENIES ANY FURTHER NEEDS AT THIS TIME.
--- NOTE | 2022-08-21 15:19 | NUR ---
PT UP TO THE BEDSIDE COMMODE 1PA WITH A FWW. PT TOLERATED WELL. PT STATES PAIN WHEN TAKING DEEP BREATH BUT IT IS TOLERABLE AND DENIES PAIN MEDICATION. PT REINFORCED USING I.S. PT LUNG SOUNDS REMAIN DIMINISHED IN LOWER LOBES. CHAIR ALARM ON. CALL LIGHT WITHIN REACH.
--- NOTE | 2022-08-21 17:17 | NUR ---
PT RESTING IN THE RECLINER, EYES CLOSED. CALL LIGHT WITHIN REACH.
--- NOTE | 2022-08-21 17:35 | NUR ---
RN PT ROUNDING. PT SITTING IN RECLINER WATCHING TV. ENCOURAGED I.S., USED 10 TIMES. PT STATED SHE WAS FEELING PAIN AND RATED IT 6/10. PRN MOTRIN PROVIDED. CALL LIGHT WITHIN REACH. DENIES FURTHER NEEDS AT THIS TIME.
--- NOTE | 2022-08-21 18:35 | NUR ---
pt in recliner. family at bedside. pt used I.S. 10 times. tolerated well and denies pain. call light within reach. chair alarm on. denies further needs.
--- NOTE | 2022-08-21 19:30 | NUR ---
report from CJ and Desire rn, pt up in ch visiting with family - denies needs, call light in reach - ch alarm in place on.
--- NOTE | 2022-08-21 20:45 | NUR ---
assisted pt from to bathroom and then bed using fww and standby assist. pt tollerated well - hr paced at 65 - denies pain, call light in reach - call to rt for home cpap. void 600 ml of yellow urine. vitals wnl.
--- NOTE | 2022-08-21 21:04 | NUR ---
FAMILY LEFT. BED ALARM ON FOR SAFETY.
--- NOTE | 2022-08-21 21:36 | NUR ---
RN AT BEDSIDE, PT EYES CLOSED - APPEARS TO BE GRASPING FOR THINGS IN THE AIR THAT ARE NOT THERE - RN WATCHED AND OBSERVED, PT STICKS OUT TOUNGE MIDLINE AND LOOKS LIKE SHE IS ATTEMPTING TO FEED HERSELF WITH HER HAND TO MOUTH WITH NOTHING THERE - PT EYES REMAIN CLOSED. PT CONTINUES TO PICK AT THE AIR WITH BOTH HANDS AND MOUTH MOVEMENTS ARE NOTED. PT AWAKENED FOR MEDS.CONFUSED ABOUT WHO IS THE GOVERNER, AND DATE BUT SHE IS ORIENTED TO PLACE AND SELF.
--- NOTE | 2022-08-22 03:33 | NUR ---
pt resting in bed, resp even, bed alarm on, call light in reach
--- NOTE | 2022-08-22 05:38 | NUR ---
PT GIVEN PO MED, PT AWAKEND FOR MED AND BACK TO SLEEP - DENIES NEEDS - REPOSITIONED. VITALS AND I/0 COMPLETE.
--- NOTE | 2022-08-22 07:28 | NUR ---
RECIEVED SHIFT REPORT. PT IN RECLINER. THIS RN ASSISTED PT TO RESTROOM. WALKED 1 SBA, WITH A FWW WITHOUT DIFFICULTY. PT URINATED 950ML. ONCE IN RECLINER PT ENCOURAGED TO USE I.S. 10 TIMES WITHOUT DIFFICULTY AND DENIES PAIN. CALL LIGHT WITHIN REACH.
--- NOTE | 2022-08-22 09:50 | NUR ---
MORNING ASSESSMENT COMPLETE. PT IN RECLINER WATCHING TV. DENIES PAIN AT THIS TIME, BUT STATES SHARP PAIN WITH DEEP BREATHS. PT CURRENTLY USING I.S. USED 20 TIMES WITH BREAKS IN BETWEEN. TOLERATING WELL WITHOUT SHOWING SIGNS OF FACIAL GRIMACES AND STATES "I FEEL FINE". LUNG SOUNDS DIMINISHED BILAT IN BASES. PT ABLE TO COUGH UP SPUTUM. BRUISE ON BACK OF HEAD REMAINS UNCHANGED.
--- NOTE | 2022-08-22 10:37 | NUR ---
PT IN RECLINER. FAMILY AT BEDSIDE. DENIES FURTHER NEEDS. CALL LIGHT WITHIN REACH.
--- NOTE | 2022-08-22 11:50 | NUR ---
IN ROOM TO HANG ANOTHER LITER OF LR. PT SITTING IN CHAIR WITH FAMILY AT BEDSIDE. CALL LIGHT WITHIN REACH.
--- NOTE | 2022-08-22 11:50 | NUR ---
Spoke with pts daughter in law, Amber. Updated we are attempting to place pt in a SNF for rehab. She states her concern and states she and pt have a wonderful relationship. She expresses her concern DIL and son pt lives with are mean with her at times. I asked if she is willing for pt to go home with her and she quickly declines. Pt is pleasantly confused and smiling through our conversation. Pt later remembers our visit yesterday and states I had a student nurse with me. She is correct. Pt in agreement to go to rehab as she is painful with getting up, day, and walking with a walker.
[2022-08-22] MEDS ORDERED: KETOCONAZOLE15 GM TOP (12:03)
--- NOTE | 2022-08-22 12:05 | NUR ---
MED REC COMPLETE
--- NOTE | 2022-08-22 12:42 | NUR ---
PT IN RECLINER. USED I.S. 10 TIMES. PT STATES PAIN IS TOLERABLE. PT TITRATED TO 1L O2 NC. PT O2 SATS MAINTAINING 95%. CALL LIGHT WITHIN REACH. FAMILY AT BEDSIDE.
--- NOTE | 2022-08-22 13:37 | NUR ---
PT IN RECLINER. PT CONTIUNES TO USE I.S. 10 TIMES WITHOUT DIFFICULTY. PT STATES PAIN IS TOLERABLE AND REFUSES PRN MEDICATION. PT REPOSITION IN CHAIR, WARM BLANKET PROVIDED, AND CALL LIGHT WITHIN REACH.
--- NOTE | 2022-08-22 15:08 | NUR ---
pt up and walking in [place] with LENS GRINDER AND POLISHER. pt back in chair call light within reach no further tasks at this time
--- NOTE | 2022-08-22 15:50 | HP ---
[facility] [address], [place] [address] Signed ADMISSION DATE: 08/20/2022 REASON FOR ADMISSION: Fall with subsequent right and left rib fractures. HISTORY OF PRESENT ILLNESS: This very elderly 82-year-old white woman presented to the emergency room where she was evaluated thoroughly by Dr. Sampson, following a reported ground level fall. Upon chatting with the patient, she says that she actually fell from a wheelchair that she was in and another person was pushing her and then fell to the ground, but also apparently down a bit of a hill. She was transferred by privately owned vehicle after this unwitnessed fall 2 hours prior to her ER presentation. She had complaints of chest wall pain, some abdominal pain, but no headache or other issue. A thorough evaluation by Dr. Sampson included multiple imaging studies as well as physical examination showing most dominantly acute nondisplaced fractures of the right anterolateral ribs 5 through 8 and left anterolateral ribs 6 and 7. A chronic compression fracture of L1-3 was noted and a 5 cm exophytic low-density lesion emanating from the lower pole of the kidney, possibly considered a complex cyst. There is no sign of solid organ injury or pneumothorax on imaging studies of CAT scan. Her studies in total include a CT scan of the head and neck, the chest, the abdomen and pelvis and lumbar spine. As it turns out, the patient had a fall previously in May of 2022 with an acute L2 compression fracture. PAST MEDICAL HISTORY: Does include a pacemaker and she is chronically anticoagulated with Eliquis. PAST SURGICAL HISTORY: Includes appendectomy, cholecystectomy, history of partial thyroidectomy, pacemaker placement, right hip operation x2 and hysterectomy. SOCIAL HISTORY: The patient does not smoke or drink alcohol. She lives with other family members currently. MEDICATIONS: At admission include amlodipine, Synthroid, Crestor, vitamin D3, fluticasone, DSS, escitalopram, famotidine, metoprolol, alendronate, colchicine as needed, potassium chloride, olmesartan, apixaban (Eliquis) and oxybutynin. REVIEW OF SYSTEMS: The patient denies any chest pain or abdominal pain at this time. She denies any headache pain. Electronically Signed By: DESEAN GREENE MD 08/22/22 1550 PATIENT NAME: CARLOS NARAYANAN HISTORY AND PHYSICAL DATE OF : 36 REPORT #: [id number] PHYSICIAN: DESEAN GREENE MD PCP: SANA DHILLON MD REPORT IS CONFIDENTIAL AND NOT TO BE RELEASED WITHOUT AUTHORIZATION [facility] [address] [place] [id number] Signed PHYSICAL EXAMINATION: GENERAL: This is an obese white woman who is lying in bed and with great comfort. She is attended by nurse at this time. VITAL SIGNS: A temperature of 97.5, pulse 60, blood pressure 136/79, respirations 18, O2 saturation on room air is 95%. NECK: Trachea is midline. There is no crepitus. She has no neck tenderness. The posterior scalp has a small amount of ecchymosis, but I do not see a hematoma. EXTREMITIES: Shoulders are normal without sign of angulation deformity. No sign of dislocation. Lower extremities show obesity. There is no focal tenderness. CHEST: Shows mild tenderness to palpation anteriorly on the right and left. Breath sounds are equal and clear bilaterally. HEART: Regular at this time. ABDOMEN: Quite markedly obese, but soft. It is easily palpated. There is no tenderness, mass, ecchymosis, hematoma or laceration. NEUROLOGIC: The patient is oriented to place ([place]), time, year 2021. She is oriented to situation, knowing she is of the hospital. Neurologic exam shows extraocular eye movements to be normal. Masseter strength is 5/5 bilaterally. Sailing Instructor strength is equal bilaterally. She is able to move both lower extremities. Sailing Instructor strength is normal. LABORATORY STUDIES: Show white count of 11.6, hematocrit of 41.9, platelets 162,000. Chem profile with creatinine elevated at 1.37. Magnesium is 2.4. Liver enzymes show an AST of 39, otherwise normal. Urinalysis shows 12-20 white cells per high-power field, 4+ bacteria. Glucose negative. COVID serology is negative. ASSESSMENT: The patient had a fall with suffering rib fractures on the right including the right rib fractures 5 through 8 and left rib fractures 6 and 7. She has numerous comorbidities and problematic findings of anticoagulation with apixaban. With the recommendation of Dr. Sampson, she has been admitted for observation given her advanced age, multiple comorbidities, and significant rib fracture concerns. She has no associated hemopneumothorax. Currently, has no dyspnea. I did discuss with the patient that pulmonary toilet is of significance in her situation to avoid development of pneumonia. Chest x-ray is anticipated for the morning as well as lab studies. The patient is far less uncomfortable than I had expected based on her history. Medications are administered to allow for pain control. She is currently on Dilaudid, Electronically Signed By: DESEAN GREENE MD 08/22/22 1550 PATIENT NAME: CARLOS NARAYANAN HISTORY AND PHYSICAL DATE OF : 36 REPORT #: [id number] PHYSICIAN: DESEAN GREENE MD PCP: SANA DHILLON MD REPORT IS CONFIDENTIAL AND NOT TO BE RELEASED WITHOUT AUTHORIZATION [facility] [address] [place] [address] Signed but non-opiate medications will be emphasized going forward. It is highly probable, she will be able to be discharged reasonably soon given her clinical improvement. Apixaban is being held at this time. A chest x-ray is anticipated for the morning as well as other followup labs. MD NATE Marinelli/ALLENL /[id number] cc: MD Sana Mendez MD Copies: TAMARA SAMPSON MD, CARMEN MD ~ Electronically Signed By: DESEAN GREENE MD 08/22/22 1550 PATIENT NAME: CARLOS NARAYANAN HISTORY AND PHYSICAL DATE OF : 36 REPORT #: [id number] PHYSICIAN: DESEAN GREENE MD PCP: SANA DHILLON MD REPORT IS CONFIDENTIAL AND NOT TO BE RELEASED WITHOUT AUTHORIZATION
--- NOTE | 2022-08-22 16:35 | NUR ---
No response from [facility]. Faxed chart to [facility] and [facility] in [place]. Notified by [facility] they will not be taking pt for 2-3 weeks.
--- NOTE | 2022-08-22 16:45 | NUR ---
PT COMPLAINING OF BILAT RIB PAIN 08/19. PT GIVEN PRN MOTRIN. PT RESTING IN RECLINER. CALL LIGHT WITHIN REACH.
--- NOTE | 2022-08-22 17:54 | NUR ---
ASSISTED PT TO THE BATHROOM, 1PA, FWW AND TOLERATED WELL. PT BACK IN CHAIR WITH CALL LIGHT WITHIN REACH.
--- NOTE | 2022-08-22 19:31 | NUR ---
report from bonnie rn, pt tele dc, sl iv, 1 litre of oxygen, pt resting and denies needs.
--- NOTE | 2022-08-22 20:20 | NUR ---
DR GREENE HERE ON FLOOR - NO PT NEEDS.
--- NOTE | 2022-08-23 00:05 | NUR ---
PT WITH CPAP ON IN BED, EYES CLOSED RESP EVEN, CALL LIGHT IN HAND.
--- NOTE | 2022-08-23 02:15 | NUR ---
no changes - call light remains in reach
--- NOTE | 2022-08-23 04:30 | NUR ---
rt called to check cpap - seal adjusted to make good fit. pt resting well - call light in reach.
--- NOTE | 2022-08-23 06:13 | NUR ---
PT AWOKEN FOR AM MEDS PO - PT DECLINED TO GET UP TO VOID - AND IS DUE TO VOID SOON. ALLOWED PT TO RETURN TO SLEEP - EDUCATED THAT SHE NEEDS TO USE RESTROOM SOON. VITALS WNL AND RECORDED. CALL LIGHT IN REACH.
--- NOTE | 2022-08-23 07:49 | NUR ---
Report received, care resumed. Pt resting in bed with eyes closed with cpap on. Resp even and unlabored.
--- NOTE | 2022-08-23 08:05 | NUR ---
PT REFUSED TO GET INTO CHAIR THIS MORNING. WILL APPROACH FOR AM CARE AGAIN LATER. CALL LIGHT WITHIN REACH.
--- NOTE | 2022-08-23 08:15 | NUR ---
RECVD CALL FROM ONOFRE AT [facility]. PATIENT CHART IS IN REVIEW TODAY. UPDATED [facility] OF PATIENT DISCHARGE PLAN TO RETURN HOME WITH HER SON AND DAUGHTER IN LAW. UPDATED COVID VACCINE RECORD SENT TO [facility]. PER [facility] THEY WILL NOT HAVE BEDS AVAILABLE UNTIL NEXT WEEK, BUT SHE WILL ADVISE ON THE PATIENT CHART REVIEW WHEN COMPLETED.
--- NOTE | 2022-08-23 09:15 | NUR ---
ASSESSMENT DONE, MORNING MEDS GIVEN. PT A/O X3, KNOWS YEAR AFTER 3 TRIES BUT NOT MONTH/DAY. BILATERAL RIB PAIN RATED 9/10. REPOSITIONED, DISCUSSED SUPPORTING RIBS WHEN COUGHING AND GOOD RESPIRATORY CARE. PO IBUPROFEN GIVEN FOR RIB PAIN. ICE WATER REPLACED, FOOT REST UP IN ARMCHAIR, I/S ENCOURAGED, CALL LIGHT IN REACH.
--- NOTE | 2022-08-23 09:51 | NUR ---
PATIENT IN CHAIR AFTER MEAL. VITALS AND I/O'S COMPLETED. PT HAS NO OTHER NEEDS AT THIS TIME. CALL LIGHT WITHIN REACH.
--- NOTE | 2022-08-23 13:21 | NUR ---
ROUNDED ON PT. PT SITTING UPRIGHT IN ARMCHAIR WITH LEGS RAISED USING I.S. AND DRINKING WATER. PT STATES SHE HAS NO PAIN WHEN SITTING STILL, "PRETTY BAD" IF COUGHING OR MOVING AROUND. ENCOURAGED PT TO CONTINTUE TO USE I.S., MOVE AROUND TOLERABLE. PT PLEASANT AND AGREEABLE. NO FURTHER NEEDS AT THIS TIME. CALL LIGHT IN REACH.
--- NOTE | 2022-08-23 13:29 | NUR ---
SPOKE WITH PATIENTS DAUGHTER IN LAW ROS. UPDATED THAT [facility] IS REVIEWING PATIENT CHART TODAY, BUT WILL NOT HAVE BED AVAILABLE UNTIL NEXT WEEK. ADVISED THAT THE PATIENT WILL CONTINUE TO STAY HERE WHERE SHE IS ABLE TO HAVE NURSING ASSISTANCE AND PT UNTIL HER PLACEMENT. QUESTIONS ANSWERED REGARDING SNF COMMUNICATION WITH MEDICARE ONCE THE PATIENT IS DISCHARGED. NO FURTHER QUESTIONS FROM ROS AT THIS TIME. ADVISED CASE MANAGEMENT STAFF WILL CONTACT THEM ON MODAY WITH AN UPDATE.
--- NOTE | 2022-08-23 14:13 | NUR ---
PATIENT IN BED, RESTING. VITALS AND I/O'S COMPLETED, ICE WATER GIVEN. PT HAS NO OTHER NEEDS AT THIS TIME. CALL LIGHT WITHIN REACH.
--- NOTE | 2022-08-23 15:22 | NUR ---
ASSESSMENT DONE, PRN IBUPROFEN GIVEN FOR 9/10 RIB PAIN WITH MOVEMEMNT. PT HAS NO PAIN WHEN AT REST. DAUGHTER CB IN ROOM WELL. PT HAS REDDENED AREA UNDER PANNUS AND IN GROIN THAT THEY HAD BEEN TREATING AT HOME PRIOR TO ADMISSION. AREA IS PINK, VERY SLIGHTLY MOIST. PILLOWCASE PLACED IN FOLDS. PT ATE AN ICE CREAM BROUGHT IN FOR HER WITHOUT ISSUE. RESP EVEN AND UNLABORED, PT USING I.S. APPROPRIATELY. CALL LIGHT IN REACH, NO FURTHER NEEDS AT THIS TIME.
--- NOTE | 2022-08-23 17:48 | NUR ---
PATIENT RESTING BED AFTER MEAL. VITALS AND I/O'S COMPLETED. PT HAS NO OTHER NEEDS AT THIS TIME, CALL LIGHT WITHIN REACH.
--- NOTE | 2022-08-23 21:54 | NUR ---
SCHEDULED EVENING MEDS GIVEN PER REQUEST OF PRIMARY RN STEVEN, SCHEDULED COLACE HELD PER pt REQUEST AND CLINICAL JUDGEMENT. MARY CPAP IN PLACE, BED ALARM ON. NO ADDITIONAL NEEDS. CALL LIGHT IN REACH.
--- NOTE | 2022-08-24 00:19 | NUR ---
AIR LEAK HEARD FROM HOME CPAP MASK, ATTEMPTED TO ADJUST, BUT AIR LEAK CONTINUES. RT SUNNY AWARE AND TO ASSESS pt AND FACE MASK. NO ADDITIONAL NEEDS, CALL LIGHT IN REACH.
--- NOTE | 2022-08-24 02:00 | NUR ---
PATIENT RESTING, EYES CLOSED WITH CPAP IN PLACE.
--- NOTE | 2022-08-24 04:00 | NUR ---
PATIENT APPEARS TO BE AWAKE, CPAP IN PLACE. ASSESSMENT DONE, PATIENT DENIES NEED FOR PAIN MEDICAITON AT THIS TIME. CALL LIGHT WITHIN REACH, NO OTHER NEEDS AT THIS TIME.
--- NOTE | 2022-08-24 05:07 | NUR ---
PATIENT UP TO BATHROOM ONCE DURING EMBEDDED SYSTEMS DESIGNER, REST OF NIGHT PATIENT APPEARED TO REST WELL WITH CPAP IN PLACE. DENIED NEED FOR PAIN MEDICATION. ENCOURAGED USE OF IS, PATIENT DEMONSTRATED USE.
--- NOTE | 2022-08-24 06:44 | NUR ---
ADMINISTERED MORNING MEDICATION, THEN ASSISTED PATIENT TO BATHROOM WITH FWW. PATIENT BRIEF SATURATED WITH URINE, VOIDED 900 ML AND HAD MD CELESTINE MURILLO. PATIENT BACK TO BED, CPAP BACK ON. BED ALARM ON. CALL LIGHT WITHIN REACH. NO OTHER NEEDS AT THIS TIME.
--- NOTE | 2022-08-24 07:28 | NUR ---
THIS RN AND HOSSEIN EDWARDS RECEIVED SHIFT REPORT FROM HOSSEIN HARRIS. PATIENT RESTING QUIETLY IN BED ON HER CPAP, EYES CLOSED, RERSPIRATIONS ARE REGULAR AND EVEN, AND CALL LIGHT IS IN REACH. PATIENT HAS NO NURSE CARE NEEDS AT THIS TIME. CALL LIGHT IS IN REACH.
--- NOTE | 2022-08-24 08:19 | NUR ---
IN ROOM TO ADMINISTER MEDICATIONS. PT SITTING UP IN CHIAR WITH MEAL TRAY. PT TAKES PO MEDICATIONS WITH NO ISSUES AND TOLERATES SUB-Q INJECTION WELL. ASSESSMENT COMPLETE. LOWER LUNG SOUNDS RLL AND LLL DIMINISHED. BRUISING NOTED TO LLQ, LEFT WRIST AND LEFT THUMB. SWELLING NOTED TO LEFT ANKLE. PT A&O TO SELF, PLACE, MONTH AND YEAR. NO OTHER NEEDS AT THIS TIME. CALL LIGHT IN REACH.
--- NOTE | 2022-08-24 08:57 | NUR ---
PATIENT IN CHAIR FOR MEAL, AM CARE COMPLETED. ICE WATER GIVEN. CALL LIGHT WITHIN REACH.
--- NOTE | 2022-08-24 09:16 | NUR ---
PATIENT IN CHAIR AFTER MEAL. VITALS AND I/O'S COMPLETED. PT HAS NO OTHER NEEDS AT THIS TIME, CALL LIGHT WITHIN REACH.
--- NOTE | 2022-08-24 11:05 | NUR ---
PATIENT RESTING QUIETLY UP IN THE BEDSIDE ARMCHAIR, EYES CLOSED, RESPIRATIONS ARE REGULAR AND EVEN, AND CALL LIGHT IS IN REACH. PATIENT HAS NO NURSE CARE NEEDS AT THIS TIME.
--- NOTE | 2022-08-24 12:10 | NUR ---
THIS RN AND HOSSEIN DORSEY IN ROOM. PTs COFFEE CUP ON FLOOR. ES CALLED TO ROOM TO MOP UP SPILL. PT SITTING IN CHIAR WITH LEGS ELEVATED IN RECLINER. CALL LIGHT IN REACH. NO OTHER NEEDS AT THIS TIME.
--- NOTE | 2022-08-24 13:35 | NUR ---
IN TO ROUND ON PT. PT LAYING IN BED. FAMLIY LEAVING ROOM. PT REPORTS NO NEEDS AT THIS TIME AND STATES "I'M GOING TO TRY AND TAKE A NAP." CALL LIGHT IN REACH. MEAL TRAY REMOVED.
--- NOTE | 2022-08-24 14:05 | NUR ---
PATIENT IN BED AFTER MEAL. VITALS AND I/O'S COMPLETED, PT HAS NO OTHER NEEDS AT THIS TIME. CALL LIGHT WITHIN REACH.
--- NOTE | 2022-08-24 15:38 | NUR ---
IN TO REASSESS PT. PT LAYING IN BED WITH TELEVISION ON AND LIGHTS OFF. PT ALERT. ASSESSMENT COMPLETE. LUNG SOUNDS IN RLL DIMINISHED AND CRACKLES, LLL SOUNDS CLEAR. PT USES I.S., UP TO 500ML X5. NO OTHER CHANGES FROM PREVIOUS ASSESSMENT. LLE ELEVATED ON PILLOW. NO OTHER NEEDS AT THIS TIME CALL LIGHT IN REACH.
--- NOTE | 2022-08-24 18:03 | NUR ---
PATIENT IN BED RESTING AFTER MEAL AND USING RESTROOM. VITALS AND I/O'S COMPLETED, ICE WATER GIVEN. PT HAS NO OTHER NEEDS AT THIS TIME. CALL LIGHT WITHIN REACH.
--- NOTE | 2022-08-24 19:35 | NUR ---
PATIENT RESTING IN BED WITH CPAP ON, PATIENT VERBALIZES HAVING A GOOD DAY. BEDSIDE REPORT FROM WILLIAN CATALAN. NO NEEDS AT THIS TIME. NEW ORDER FOR ELIQUIS TO BE ADMINISTERED WITH HS MEDICATIONS. PATIENT VERBALIZED UNDERSTANDING.
--- NOTE | 2022-08-24 21:08 | NUR ---
FULL BODY ASSESMENT DONE. NO ACUTE CHANGES. VSS WNL. PATIENT UP TO BATHROOM, APPEARS STEADY ON FEET WITH FWW. NEEDS ASSISTING TO DANGLE AT EDGE OF BED. PATIENT REPORTS PAIN TOLERABLE WITH ACTIVITY RATES 4/10 ON PAIN SCALE, DENIES NEED FOR PAIN MEDICATION. VOIDED 250 ML OF CLEAR URINE, CHANGED PATIENT SOILED GOWN. BACK TO BED, PATIENT STATES " WHEN I LOOK AT SOMETHING ON THE WALL IT MOVES UP CLOSE TO ME, THEN WHEN I REACH OUT TO TOUCH IT, IT GOES BACK INTO PLACE REALLY FAST" PATIENT STATES THIS IS NEW. PLAN TO REPORT TO DR. JUSTIN. MEDICATIONS ADMINISTERED. PROVIDED EDUCATION ABOUT PREVENTION OF PNEAMONIA, AND USE OF IS. PATIENT ABLE TO FLOAT WAFER TO 1200 ML. CALL LIGHT WITHIN REACH. NO OTHER NEEDS AT THIS TIME. CPAP ON AND IN PLACE, OXYGEN SATURATION 100 % ROOM AIR.
--- NOTE | 2022-08-25 03:40 | NUR ---
in to assist pt to the toilet, fww, back to bed
--- NOTE | 2022-08-25 05:41 | NUR ---
PATIENT RESTED THROUGHOUT NIGHT, STEADY ON FEET USING FWW WITH 1PERSON ASSIST. NO PAIN MEDICATION ADMINISTERED FOR PAIN SECONDARY TO RIB FX, PATIENT ABLE TO GET UP FROM BED AND TOLERATE THE ACTIVITY WELL. PROVIDED EDUCATION ON INCENTIVE SPIROMETER, NEEDS ENCOURAGED. CPAP ON ALL THROUGHOUT NIGHT. VS WNL.
--- NOTE | 2022-08-25 07:42 | NUR ---
THIS RN RECEIVED SHIFT REPORT FROM HOSSEIN TAYLOR. PATIENT RESTING QUIETLY IN BED SUPINE WITH CPAP ON, EYES CLOSED, RESPIRATIONS ARE REGULAR AND EVEN, AND CALL LIGHT IS IN REACH. PATIENT HAS NO NURSE CARE NEEDS AT THIS TIME.
--- NOTE | 2022-08-25 08:22 | NUR ---
THIS RN IN TO SEE PATIENT AND AM ASSESSMENT COMPLETE AND AM BMEDS EXPLAINED AND GIVEN. PATIENT DENIES PAIN OR NAUSEA AND WANTS TO REST UNTIL BREAKFAST WHICH HAS NO YET ARRIVED. PATIENT KEPT CPAP ON AND HAD THIS RN TURN THE LIGHTS DOWN. CALL LIGHT IS IN REACH. NO OTHER CARE NEEDS NOTED AT THIS TIME.
--- NOTE | 2022-08-25 12:53 | NUR ---
THIS RN IN TO CHECK ON PATIENT AND SHE DOES NOT WANT TO EAT LUNCH BECAUSE SHE FELT SHE ATE BREAKFAST TO LATE. THIS RN DID SET HER UP WITH HER APPLECRISP HOWEVER AND SHE IS EATING THAT AT THIS TIME. PATIENT DENIED ANY OTHER CARE NEEDS AT THIS TIME. CALL LIGHT IS IN REACH.
--- NOTE | 2022-08-25 14:30 | NUR ---
PATIENT IN BED AFTER MEAL. VITALS AND I/O'S COMPLETED, PT HAS NO OTHER NEEDS AT THIS TIME. BED ALARM ON. CALL LIGHT WITHIN REACH.
--- NOTE | 2022-08-25 15:20 | NUR ---
THIS RN IN TO CHECK ON PATIENT. PATIENT AFTERNOON ASSESSMENT COMPLETE AND IS UNCHANGED FROM THE AM. PATIENT DENIES ANY CARE NEEDS AT THIS TIME. LIGHTS TURNED DOWN SO PATIENT CAN TAKE A NAP. CALL LIGHT IN REACH.
--- NOTE | 2022-08-25 17:38 | NUR ---
THIS RN TOOK IN PATIENT'S DINNER TRAY AND SET IT UP FOR HER. PATIENT DENIES ANY OTHER CARE NEEDS AT THIS TIME. CALL LIGHT IS IN REACH. PATIENT UP IN THE BEDSIDE ARMCHAIR WATCHING TV.
--- NOTE | 2022-08-25 20:15 | NUR ---
CALL LIGHT ANSWERED. 1 SBA TO THE BATHROOM FROM CHAIR. PATIENT VOIDED BUT MISSED THE HAT. PATIENT IS NOW IN BED. V/S AND I&O'S TAKEN AND CHARTED. RT WAS WITH PATIENT. WARM BLANKET PROVIDED. CPAP ON DONE BY THE RT. BED ALARM ON FOR SAFETY.
--- NOTE | 2022-08-25 20:29 | NUR ---
PATIENT HANDOFF FROM WILLIAN RN, PATIENT UP TO BATHROOM WHEN IN ROOM, BACK TO BED WITH CPAP ON. MARBLE AND GRANITE POLISHER INTO ROOM, PLAN TO ADMINISTER MEDICATIONS AND OTHER HS CARE AFTER RT IS DONE WITH TREATMENTS.
--- NOTE | 2022-08-25 21:56 | NUR ---
FULL BODY ASSESMENT AND HS MEDICATIONS ADMINISTERED. REINFORCED EDUCATION WITH ELIQUIS AND SIDE EFFECTS. PATIENT VERBALIZED UNDERSTANDING. NO ACUTE CHANGES NOTED WITH ASSESMENT. PATIENT STATES " I HAD A LONG DAY AND FEEL SO TIRED TONIGHT" PATIENT HAS CPAP NOSE DEVICE IN PLACE. NO SKIN BREAKDOWN NOTED, SKIN INTACT. PATIENT DEMONSTRATED IS FLOATING WAFER TO 1500 ML X 6 TIMES. PATIENT REPORTS PAIN DULL ACHE, IF 0/10 AT REST. DENIES ANY PAIN MEDICATION AT THIS TIME. CALL LIGHT WITHIN REACH, BED ALARM ON.
--- NOTE | 2022-08-26 07:30 | NUR ---
THIS RN AND HOSSEIN EDWARDS RECEIVED SHIFT REPORT FROM HOSSEIN HARRIS. PATIENT RESTING QUIETLY IN LOW FOWLERS POSITION, EYES CLOSED, RESPIRATIONS ARE REGULAR AND EVEN, AND CALL LIGHT IS IN REACH. PATIENT HAS NO NURSE CARE NEEDS AT THIS TIME.
--- NOTE | 2022-08-26 08:15 | NUR ---
THIS RN IN TO SEE PATIENT AND AM ASSESSMENT COMPLETE. SAMEERA TOOK ALL AM MEDS WITHOUT DIFFICULTY, AM VS STABLE, AND IV FLUSHES WELL. TRAY SET UP FOR ROSIE AT BEDSIDE ARMCHAIR SO PATIENT CAN EAT BREAKFAST AND ALL HER FOOD HAS BEEN CUT UP FOR HER TO EAT BY THIS RN. ROSIE HAS NO OHER CARE NEEDS AT THIS TIME. CALL LIGHT IS IN REACH.
--- NOTE | 2022-08-26 08:20 | NUR ---
RECVD CALL FROM ROS PATIENT DAUGHTER IN LAW. UPDATE OF PLACEMENT STATUS. DISCUSSED TRANSPORT, FAMILY WILLING TO TRANSPORT WHEN DISCHARGED. UPDATED ROS THAT WE HOPE TO RECV AN ANSWER FROM [facility] TODAY. ADVISED WILL UPDATE WHEN AVAILABLE.
--- NOTE | 2022-08-26 09:18 | NUR ---
ATTEMPTED TO CONTACT ONOFRE AT [facility] REGARD[facility] PLACEMENT. PER STAFF ONOFRE IS CURRENTLY IN AM MEETING, WILL CALL BACK AFTER MORNING MEETING.
--- NOTE | 2022-08-26 09:37 | NUR ---
pt up in chair i&o and vs charted call light within reach no further tasks at this time
--- NOTE | 2022-08-26 10:12 | NUR ---
assisted pt with shower. pt back up in chair. call light within reach.
--- NOTE | 2022-08-26 10:34 | NUR ---
PATIENT RESTING QUIETLY IN THE BEDSIDE ARMCHAIR WATCHING GAMESHOWS ON TV. PATIENT DENIES ANY CARE NEEDS AT THIS TIME.
--- NOTE | 2022-08-26 11:08 | NUR ---
ATTEMPTED TO CONATC ONOFRE VARELA RN AT [facility]. ONOFRE OUT OF THE OFFICE TODAY, VOICEMAIL LEFT TO CHECK ON PLACEMENT.
--- NOTE | 2022-08-26 11:49 | NUR ---
SPOKE WITH MELISA HAQ, PT WILL WORK WITH PATIENT THIS AFTERNOON TO UPDATE PLACEMENT FACILITIES.
--- NOTE | 2022-08-26 12:17 | NUR ---
THIS RN SET UP PATIENT'S LUNCH TRAY FOR HER AND CUT UP HER FOOD AND SALT AND PEPPERED IT AT HER REQUEST. PATIENT HAS A CURRENT VISITOR. PATIENT DENIES ANY OTHER CARE NEEDS AT THIS TIME. CALL LIGHT IN REACH.
--- NOTE | 2022-08-26 12:47 | NUR ---
SPOKE WITH WILLIAN CATALAN AND . DR. MARTINEZ FEELS THAT AT THIS TIME THE PATIENT IS MEDICALLY READY FOR DISCHARGE WITH HOME HEALTH PT. ADVISED THAT PATIENTS FAMILY HAS CONCERNS WITH FUNCTIONAL CAPABILITIES AND WAS REQUESTING PLACEMENT. CONTACT MADE WITH [employer] PATIENTS DAUGHTER IN LAW AND CAREGIVER. EXPLAINED THAT AT THIS TIME DR. MARTINEZ WELL PT HAVE FOUND THAT THE PATIENT IS DOING WELL AND READY FOR DISCHARGE. [employer] UPSET STATING THAT SHE "DOES NOT UNDERSTAND HOW ANYONE CAN SAY SHE IS READY TO GO HOME WITH 6 BROKEN RIBS AND A BACK FRACTURE." ADVISED THAT ONCE PT HAS SIGNED OFF ON THE PATIENT IT WILL BE DIFICULT TO FIND PLACEMENT A SNF WOULD NOT BE PAID FOR PT SERVICES IF THEY ARE NO NECESSARY. [employer] STATES THAT SHE CURRENTLY HAS A LOT OF HEALTH ISSUES AND HER WORKS OUT OF TOWN, WHICH MAKES IT DIFFICULT FOR THEM TO CARE FOR THE PATIENT. SHE STATES THEY FEAR SHE WILL RETURN HOME THEN SUFFER ANOTHER FALL. ADVISED THAT OPTIONS INCLUDED DISCHARGE WITH HOME HEALTH PT FOR CONTINUED STRENGTHENING AND ASSISTANCE FROM FAMILY RESOURCES FOR A BATH AID ECT. ALSO ADVISED THAT THE FAMILY MAY PURSUE A MEDICARE APPEAL IF THEY WISH TO HAVE THE DECISION REVIEWED. [employer] STATES SHE NEEDS TO DISCUSS THINGS FURTHER WITH HER AND WILL CALL BACK.
--- NOTE | 2022-08-26 13:15 | NUR ---
Call from Halley's daughter in law, Ramila. She has questions regarding medicare appeal. Let her know Sandhya has stepped out. She is wanting to know medicare appeal process and states she has recently had covid and has difficulty with memory and speaking. Reviewed the process with her her and gave her the . We then discussed medicare does not recognize the family issues, only the pts issues. PT and two Dr.s have determined pt does not need a SNF and can return home. We discussed options of paying out of pocket for a SNF or an LUIS. I reminded her we had discussed process for machine long goods helper medicaid which pt may qualify for through DHS. This would could assist with payment if pt qualifies physically and financially. Family would need to complete this process on their own as this is a [address] into place. Ramila states her is on his way in to speak to us. Let her know they just need to call the Appeal number, I really cannot change anything by speaking with her spouse. TIMOTHY Arthur, updated when she returned from lunch.
--- NOTE | 2022-08-26 13:58 | NUR ---
WALKED PT IN HALLS AROUND UNIT. PT BACK IN BED, CALL LIGHT WITHIN REACH
--- NOTE | 2022-08-26 15:18 | NUR ---
[facility] have [facility]. Received _[phone]. Chart karlyied and Sandhy[facility] when complete.
--- NOTE | 2022-08-26 15:32 | NUR ---
THIS RN IN TO SEE PATIENT AND AFTERNOON ASSESSMENT COMPLETE. PATIENT WAS SCHEDULED FOR DC, BUT IS APPEALING THAT DECISION. PATIENT SEEMS IN GOOD SOIRITS AND IS PLEASANT AND COOPERATIVE. PATIENT DENIES ANY CARE NEEDS AT THIS TIME AND IS RELAXING IN BED. PATIENT JUST GOT A PHONE CALL AND IS NOW CONVERSING. CALL LIGHT IS IN REACH.
--- NOTE | 2022-08-26 16:19 | NUR ---
PATIENT'S SON AND [id number] JUST ARRIVED AND ARE ASKING TO SPEAK TO CASE MANAGMENT. THIS RN CONTACTED HOSSEIN MCINTOSH IN AND SHE ASKED ME TO HAVE FAMILY WEIGHT IN ROOM AND THAT SHE WOULD BE DOWN. THIS RN DIRECTED PATIENT'S FAMILY INTO PATIENT'S ROOM TO WAIT.
--- NOTE | 2022-08-26 16:45 | NUR ---
THIS RN AND NARA RN DOWN TO PATIENT ROOM FOR CONFERENCE WITH PATIENT SON SUSIE AND DAUGHTER IN LAW CB. SUSIE STATING THAT THE PATIENT FUNCTIONAL CAPABILITIES ARE WORSE AT HOME THEN WHEN THE PATIENT IS AT HOME. SUSIE STATES THEY HAVE FOUND THE PATIENT SITTING ON THE FLOOR AFTER ATTEMPTING TO GET OUT OF BED WITH OUT ASSISTANCE. DISCUSSED THAT UNFORTUNATLY ONCE PT HAS MADE THE DETERMINATION BASED ON THE PATIENT FUNCTIONAL ABILITIES AND DOCUMENTED MEDICARE WILL NOT COVER PLACEMENT TO A FACILITY. ADVISED THAT AT THIS TIME APPEAL IS THEIR BEST COURSE OF ACTION. FURTHER REVIEWED THE MEDICARE APPEALS DETERMINATION PROCESS. PATIENT AND FAMILY UNDERSTANDING OF THE APPEALS PROCESS AND THE DTERMINATION COULD TAKE UP TO 48 HRS. DISCUSS MEDICARE GUIDELINES FOR INPATIENT AND SNF PLACEMENT CRITERIA. PATIENT AND FAMILY ADVISED THAT IF THEY OPTED TO STAY INPATIENT AFTER THE THEIR APPEAL HAS BEEN DENIED THAT THE BASE DAILY COST FOR AN INPATIENT IS $2300. ALL QUESTION ANSWERED FOR PATIENT AND FAMILY. PATINET AND FAMILY WILL AWAIT APPEALS DETERMINATION. IN THE EVENT THAT THE APPEAL IS DENIED CASE MANAGMENT WILL ASSIST WITH OPPT AND OTHER CAREGIVING SERVICES.
--- NOTE | 2022-08-26 18:32 | NUR ---
THIS RN IN TO CHECK ON PATIENT AND SHE CONTINUES TO WATCH TV UP IN THE BEDSIDE ARMCHAIR. PATIENT ATE HER FRUIT FOR DINNER, BUT THAT WAS ALL AND WAS NOT HUNGRY FOR ANYTHING ELSE. PATIENT DENIES ANY OTHER CARE NEEDS AT THIS TIME. CALL LIGHT IS IN REACH.
--- NOTE | 2022-08-27 00:27 | NUR ---
CALL LIGHT ANSWERED. 1 SBA TOT HE BATHROOM AND BACK TO BED. BED ALARM ON FOR SAFETY. CPAP ON.
--- NOTE | 2022-08-27 06:20 | NUR ---
PATIENT SLEPT WELL THROUGHOUT THE NIGHT. NO COMPLAINTS OF PAIN, WORE C-PAP THROUGHOUT NIGHT. CALLS APPROPRIATELY. NO ACUTE CHANGES.
--- NOTE | 2022-08-27 07:24 | NUR ---
THIS RN RECEIVED SHIFT REPORT FROM HOSSEIN HARRIS. PATIENT ALREADY UP IN THE BEDSIDE ARMCHAIR FOR BREAKFAST. PATIENT DENIES PAIN AND NAUSEA AND ALL OTHER CARE NEEDS AT THIS TIME. CALL LIGHT IS IN REACH.
--- NOTE | 2022-08-27 08:15 | NUR ---
THIS RN IN TO SEE PATIENT. AM ASSESSMENT COMPLETE. ALL AM MEDS GIVEN. PATIENT SAYS SHE HAS HAD A GOOD NIGHT AND IS AWAITING BREAKFAST. IV FLUSHES WELL. PATIENT DENIES ANY CARE NEEDS AT THIS TIME. ICE WATER REFILLED. CALL LIGHT IN REACH.
--- NOTE | 2022-08-27 10:31 | NUR ---
PATIENT REMAINS SITTING UP IN TE BEDSIDE ARMCHAIR WATCHING SPORTS ON TV. PATIENT DENIES ANY NURSE CARE NEEDS AT THIS TIME. CALL LIGHT IS IN REACH.
--- NOTE | 2022-08-27 10:39 | NUR ---
pt up from chair to walk halls. pt walked one lap around med-surg unit, stand by assist with frount wheel walker. pt back in room and requested to lay in bed. pt back in bed call light within reach no further tasks at this time
--- NOTE | 2022-08-27 11:30 | NUR ---
Called Dr. Mack and updated daughter in law would like pt to have OP therapy on dc. Received Telephone order for OP PT/OT to eval and treat.
--- NOTE | 2022-08-27 12:25 | NUR ---
Spoke with pts daughter in law Ros. She would like pt to be able to return to OP therapy as soon as possible. Let her know I will have to check about their time frame. Called and checked with OP therapy. They state pt was recently on service, as she fell, they can possibly get her back on service in 1-2 days. I will fax the chart as daughter has requested. Family cont. in process of medicare appeal of the pts dc. Family wanting chart faxed to OP.
--- NOTE | 2022-08-27 12:36 | NUR ---
PATIENT SITTING UP IN BED WORKING ON HER LUNCH. PATIENT HAS NO NURSE CARE NEEDS AT THIS TIME. CALL LIGHT IS IN REACH.
--- NOTE | 2022-08-27 14:16 | NUR ---
THIS RN IN TO CHECK ON PATIENT AND AFTERNOON ASSESSMENT COMPLETE AND ESSENTIALLY UNCHANGED FROM THE MORNING. PATIENT SAYS SHE HAS NOT BEEN ABLE TO GET HER NAP AND ASKED THIS RN TO PULL THE SHADES DOWN AND I DID. LIGHTS ALL TURNED DOWN. CALL LIGHT IN REACH.
--- NOTE | 2022-08-27 16:00 | NUR ---
Spoke with Ramila, she is in to visit Halley. She asks if I have sent the chart to OP. Let her know have not, she again asks if I can do so. Let her know I will go ahead and send. She states she will be back at 2 pm tomorrow to take pt home. Let her know we have not received a decision from medicare about their appeal. She states she is aware, she is checking the appeal site and it is in review. She still plans on taking pt home tomorrow and would like to have pt start OP therapy.
--- NOTE | 2022-08-27 16:14 | NUR ---
PATIENT RESTING IN BED WATCHING TV AND TALKING ON HER CELL PHONE. PATIENT HAS NO NURSE CARE NEEDS AT THIS TIME. CALL LIGHT IN REACH.
--- NOTE | 2022-08-27 19:20 | NUR ---
SHIFT REPORT RECEIVED FROM DAYSHIFT HOSSEIN DORSEY AT BEDSIDE. pt AWAKE AND RESTING IN BED, WATCHING TV. NO NEEDS OR CONCERNS VERBALIZED. CALL LIGHT IN REACH. BOARD UPDATED.
--- NOTE | 2022-08-27 23:03 | NUR ---
ASSESSMENT COMPLETE, SCHEDULED MEDS GIVEN-SEE EMAR. pt ON HOME CPAP MACHINE. REPORTS PAIN TOLERABLE AT 8/10, DENIES NEED FOR PAIN MEDICATION WHEN ASKED. DENIES NAUSEA. IV SITE WNL, FLUSHES EASILY. NO ADDITIONAL NEEDS, CALL LIGHT IN REACH AND BED ALARM ON FOR SAFETY.
--- NOTE | 2022-08-28 02:11 | NUR ---
ROUNDED ON pt, pt RESTING IN BED WITH EYES CLOSED ON HOME CPAP MACHINE. RR EVEN AND UNLABORED, NO DISTRESS NOTED. BED ALARM ON AND CALL LIGHT IN REACH.
--- NOTE | 2022-08-28 05:13 | NUR ---
VS AND I&O'S COMPLETE. ASSESSMENT COMPLETE, NO ACUTE CHANGES. pt REPORTS 0/10 PAIN AT REST, INCREASES TO 8/10 W/ MOVEMENT. DENIES NEED FOR PAIN MEDICATION WHEN OFFERED, FRESH WATER PROVIDED. CALL LIGHT IN REACH.
--- NOTE | 2022-08-28 05:36 | NUR ---
SCHEDULED THYROID GIVEN, SEE EMAR. CALL LIGHT IN REACH AND BED ALARM ON.
--- NOTE | 2022-08-28 10:16 | NUR ---
THIS CNA2 ASSISTED PT TO SHOWER, GEOVANNI FWW, PT DID SHOWER MOSTLY INDEPENDENTLY. WASHED HAIR, UNDER PANIS, ALLAN CARE. PT WANTED TO GO BACK TO BED AND REST AFTER SHOWER. TABLE/CALL LIGHT IN REACH. NO OTHER REQUESTS AT THIS TIME.
--- NOTE | 2022-08-28 11:00 | NUR ---
Call Rn, she states pt plans on dc at 2 pm with Sofia MONTERO. I will call and confirm. Called and spoke with Ramila and she states she is planning on arriving around 2-2:30 and she will take pt home. They were notified by [facility] physician adviser, they were in agreement with pt to discharge to home. She is aware I have sent pts chart to OP Therapy as requested by [facility]. Rn updated, pt and family plan on dc this afternoon.
--- NOTE | 2022-08-28 12:25 | NUR ---
Motrin 600mg po admin for reports of 6/10 rib pain.
--- NOTE | 2022-08-28 14:07 | NUR ---
IV TAKEN OUT PER RN D/C
--- NOTE | 2022-08-28 17:09 | NUR ---
Received a fax from [facility] notifying us, they are in agreement for pt to dc to home.
--- NOTE | 2022-09-02 20:01 | DS ---
[facility] [address], [place] [address] Signed ADMISSION DATE: 08/20/2022 DISCHARGE DATE: ANTICIPATED DATE OF DISCHARGE: August 26, 2022. REASON FOR ADMISSION: Ground level fall with rib fractures, right side 5 through 8 and left 6 and 7. HISTORY OF PRESENT ILLNESS: This elderly 82-year-old white woman presented to the emergency room and was evaluated by Dr. Sampson following a ground level fall. The patient contends that she was in a wheelchair and fell from the wheelchair down a short distance. She was transferred by privately owned vehicle after this unwitnessed fall 2 hours prior to emergency room presentation and complaints of chest wall pain, some abdominal pain, but no headache or other abnormality. Evaluation in the emergency room included a CT scan and other imaging studies, which showed nondisplaced fractures of the right anterolateral ribs 5 through 8 and left anterolateral ribs 6 and 7. A chronic compression fracture of L1-3 was noted and a 5 cm exophytic low-density lesion emanating from the lower pole of the kidney considered likely complex cyst, but uncertain entirely as to its underlying pathology. She was incidentally found to have abnormal urinalysis consistent with urinary tract infection including 12 to 20 white cells per high-power field and 4+ bacteria. She had been recently treated for urinary tract infection. She is asymptomatic regarding the infection. She was admitted for further evaluation and care at the direction of the emergency room physician. Pertinent physical exam was notable for a temperature of 97.5, a pulse of 60, blood pressure 136/79, respirations 18, O2 saturation room air of 95%. Neck exam was normal. Chest showed mild tenderness to palpation anteriorly on the right and the left. Breath sounds are equal bilaterally. Heart was regular at the time of evaluation. Abdomen markedly obese, but soft and easily palpated. There was no tenderness or mass. Neurologic exam was essentially normal. Laboratory studies showed white count 11.6, hematocrit 41.9, platelets 162,000. Chem profile had a creatinine of 1.37, magnesium 2.4. Liver enzymes showed an AST of 39, otherwise normal. Urinalysis was abnormal as previously noted. HOSPITAL COURSE: Electronically Signed By: DESEAN GREENE MD 09/02/222000 PATIENT NAME: CARLOS NARAYANAN DISCHARGE SUMMARY DATE OF : 36 REPORT #: [id number] PHYSICIAN: DESEAN GREENE MD PCP: SANA SHEPARD MD REPORT IS CONFIDENTIAL AND NOT TO BE RELEASED WITHOUT AUTHORIZATION [address] [address] Signed She was admitted and given an IV and monitored for her breathing and managed for chest wall pain. A followup chest x-ray showed no progression of problem, specifically no pneumothorax or effusion. Her liver enzymes had become increased for reasons that were unclear, but promptly resolved to a normal level the following day. She was initiated on an antibiotic Bactrim DS 1 p.o. b.i.d. for urinary tract infection. She had some difficulty in self transfer from bed to chair given her rib pain. Her family wished that disposition options be explored as they thought her increasingly unable to be cared for by family members at home. She had progressive improvement regarding her rib pain and no other particular problems. Her apixaban anticoagulant was re-initiated on the 24 of August without problem. The planner intern (Alesha Norman RN) had located an extended care facility in [place], [place], which is likely going to accept the patient for admission on August 26. I do not expect a decline in her overall situation. Physical therapy and occupational therapy will be maintained as she eventually returns to her baseline level of independence. DISCHARGE MEDICATION: 1. Amlodipine 10 mg p.o. daily. 2. DSS 100 mg p.o. b.i.d. 3. Lexapro 10 mg p.o. daily. 4. Famotidine 20 mg p.o. at bedtime. 5. Synthroid 75 mcg p.o. daily. 6. Metoprolol 100 mg (Toprol-XL 100 mg two tablets p.o. daily). 7. Oxybutynin chloride 5 mg (Ditropan XL 15 mg p.o. daily). 8. Bactrim DS one p.o. b.i.d. 9. Ibuprofen 600 mg p.o. q.6 hours as needed for pain. 10. Tramadol 50 mg p.o. q.6 hours p.r.n. pain #30. 11. Zofran 4 mg q.6 hours as needed for nausea. In addition to these medicines that were used during course of hospitalization, her usual medications will be re-initiated includin. Alendronate 70 mg tablets p.o. q.week. 2. Colchicine/probenecid side 500/0.5 one p.o. b.i.d. 3. Vitamin D 3 1000 units tablets p.o. daily. 4. Benadryl 25 mg p.o. at bedtime as needed for sleep. 5. Saritha-D 24-hour tablet one p.o. daily as needed for allergies. 6. Fluticasone Flonase Allergy Relief 50 mcg actuation spray each nostril b.i.d. as needed. 7. Ketoconazole 2% cream applied topically b.i.d. 8. Melatonin tablets 10 mg p.o. at bedtime as needed for insomnia. Electronically Signed By: DESEAN GREENE MD 09/02/222000 PATIENT NAME: CARLOS NARAYANAN DISCHARGE SUMMARY DATE OF : 36 REPORT #: [id number] PHYSICIAN: DESEAN GREENE MD PCP: SANA SHEPARD MD REPORT IS CONFIDENTIAL AND NOT TO BE RELEASED WITHOUT AUTHORIZATION [facility] [address], [place] [address] Signed 9. Crestor 10 mg p.o. at bedtime. 10. Potassium chloride K-Tab extended release 20 mEq tablet p.o. daily. 11. Benicar 20 mg tablet p.o. daily. DISCHARGE DIAGNOSES: 1. Ground level fall with right rib fractures 5 through 8 and left rib fractures 6 and 7. 2. Asymptomatic recurrent urinary tract infection. 3. Distant history of pacemaker with associated atrial fibrillation and chronic anticoagulation. 4. Hypothyroidism. 5. Osteoporosis. 6. Gastroesophageal reflux. 7. Chronic insomnia. FOLLOWUP PLANS: She will return to the ongoing care with her usual primary provider (Sana Shepard MD) as needed. MD NATE Marinelli/MIESHA /[id number] cc: Sana Shepard MD Copies: SANA SHEPARD MD ~ Electronically Signed By: DESEAN GREENE MD 10/24/22 2001 PATIENT NAME: CARLOS NARAYANAN DISCHARGE SUMMARY DATE OF : 36 REPORT #: [id number] PHYSICIAN: EDSEAN GREENE MD PCP: SANA SHEPARD MD REPORT IS CONFIDENTIAL AND NOT TO BE RELEASED WITHOUT AUTHORIZATION
--- NOTE | 2022-09-03 14:25 | NUR ---
SPOKE WITH PATIENTS [id number] CB FOR POST DISCHARGE FOLLOW UP. STATES PATIENT IS DOING OK, USING WALKER BUT IS NOT REALLY STABLE. SHE WAS VERY VOCAL AND AT SOME POINTS YELLING OVER HER CONCERNS WITH THE DISCHARGE. SHE STATES THE PCP DR DHILLON HAS REVIEWED CHART IS IS "APPALLED" SHE WAS DISCHARGED SO SOON. STATES THEY SEE HER TOMORROW AND THEY ARE GOING TO GET HER INTO A REHAB PLACE. STATES THEY HAVE YET TO RECEIVE A CALL FROM OP THERAPY OFFICE. STATES HOME HEALTH WAS CANCELLED DUE TO WEATHER SO THEY AGREED TO OUTPATIENT OFFICE. STATES THEY DON'T EVEN HAVE A TUB SHE CAN GET INTO TO BATHE. SHE WAS VERY VOCAL SHE HAS LONG HAUL COVID AND IS NOT ABLE TO DO THE KIND OF CARE PATIENT NEEDS. WHEN WE DISCUSSED THE APPEAL FOR DISHCARGE TO MEDICARE SHE STATES "THEY NEVER EVEN READ THE NOTES, I AM SURE". ALSO STATES SHE FELT THE NURSES ASKED PATIENT IN THE WRONG WAY ABOUT PAIN. STATED "WHEN YOU ASK SOMEONE IF THEY HURT AND THEY ARE JUST SITTING QUIETLY, THEY ARE GONNA SAY NO". SHE ALSO STATED SHE SPOKE WITH NARA THAT SHE WOULD PICK PATIENT UP AT 2PM FOR DISCHARGE AND WANTED TO BE THERE WHEN INSTRUCTIONS WERE GIVEN, BUT THEY HAD ALREADY DONE IT WITH JUST THE PATIENT WHO HAS TROUBLE UNDERSTANDING THINGS AND SHE "CAN'T BELIEVE THEY COULDN'T WAIT UNTIL I WAS THERE". I OFFERED TO HAVE HER SPEAK TO OUR HEAD OF STORE OPERATIONSBARREL PLATER AND/OR FILL OUT A COMPLAINT FORM. I DISCUSSED THAT WE WANT TO BE ABLE TO CHANGE OUR PROCESSES IF THEY DON'T WORK FOR PEOPLE AND WELCOME SUGGESTIONS. SHE DECLINED BUT WANTED ME TO SPEAK TO NARA AND ARNALDO SHE FELT THEY KNEW THE WHOLE STORY AND THEY SHOULD TALK TO THE ONES WHO NEED TO KNOW. I OFFERED TO GO OVER MEDICATIONS, ETC WITH HER. SHE STATES SHE IS FINE WITH IT NOW, HAS LOOKED IT OVER AND WILL TAKE IT WITH HER TO DR OFFICE TOMORROW. SHE STATED THEY TOOK GOOD CARE OF PATIENT SHE JUST DOESN'T UNDERSTAND HOW PEOPLE ARE PUSHED OUT THE DOOR NOWADAYS, STATED PT STAYED OVER A MONTH BEFORE WITH LESS ISSUES AND IT IS NOT RIGHT PEOPLE ARE EXPECTED TO GO HOME SO SOON. I DID DISCUSS CMS RULES ON DISCHARGES, ETC. BUT SHE STILL THINKS THE HOSPITAL SHOULD "KEEP PEOPLE ON SWING BED THEN".
== END 2022-08-28 14:15 | disposition home or self-care (01) | DRG 184 ==
LOC: ED 15:42 → MS 15:43
PROVIDERS: ADMIT Surgery; ATTEND Surgery
DX: S22.43XA Multiple fractures of ribs, bilateral, initial encounter for closed fracture (principal); I69.351 Hemiplegia and hemiparesis following cerebral infarction affecting right dominant side; N39.0 Urinary tract infection, site not specified; Z20.822 Contact with and (suspected) exposure to COVID-19; Z99.3 Dependence on wheelchair; E66.9 Obesity, unspecified; Z68.38 Body mass index [BMI] 38.0-38.9, adult; G47.00 Insomnia, unspecified; M81.0 Age-related osteoporosis without current pathological fracture; E03.9 Hypothyroidism, unspecified; I48.91 Unspecified atrial fibrillation; I10 Essential (primary) hypertension; E78.00 Pure hypercholesterolemia, unspecified; B96.20 Unspecified Escherichia coli [E. coli] as the cause of diseases classified elsewhere; K21.9 Gastro-esophageal reflux disease without esophagitis; Z96.1 Presence of intraocular lens; Z87.891 Personal history of nicotine dependence; Z90.49 Acquired absence of other specified parts of digestive tract; Z95.0 Presence of cardiac pacemaker; Z90.710 Acquired absence of both cervix and uterus; Z88.8 Allergy status to other drugs, medicaments and biological substances; Z79.01 Long term (current) use of anticoagulants; Z79.899 Other long term (current) drug therapy; V00.811A Fall from moving wheelchair (powered), initial encounter
CPT/HCPCS: 36415; 51701; 70450; 71045; 71260; 72125; 72128; 72131; 74177; 80053; 81001; 83735; 84484; 85025; 87088; 87186; 93005; 93010; 94760; 97161; 99285-25; A9270; C9803; J1644; J7121; Q9967; U0003

== ENCOUNTER 2022-09-05 16:12 | Emergency (ER) | payer MEDICARE ==
[~2022-09-05] VITALS: Ht 157.5 cm; Wt 82.6 kg
[~2022-09-05 16:12] MED LIST changes: +ALLEGRA-D 24 H1 EACH PO; +BENADRYL25 MG PO; +KETOCONAZOLE15 GM TOP; +MELATONIN10 MG PO
--- OUTSIDE RECORDS SUMMARY | 2022-09-05 16:14 | XMS ---
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 EEstela VISIT COUNT (12 MO.) 1 [facility] and [address] TOTAL 6 NOTE: Visits indicate total known visits. ED/UCC VISIT TRACKING (12 MO.) 09/05/2022 16:12 [facility] TYPE: Emergency COMPLAINT: - FALL 08/20/2022 15:42 [facility] [place] TYPE: Emergency COMPLAINT: - FALL 05/30/2022 11:[address] [facility]ese[facility]ENO TYPE: Emergency DIAGNOSES: - fall, back pain 1 week - Back Pain - Wedge compression fracture of second lumbar vertebra, subsequent encounter for fracture with routine healing 05/10/2022 20:22 [facility] TYPE: Emergency COMPLAINT: - R HIP PAIN 03/31/2022 21:21 [facility] TYPE: Emergency DIAGNOSES: 18396. Referral [id number]. Central retinal artery occlusion, left eye 03/31/2022 12:56 [facility] [place] TYPE: Emergency COMPLAINT: - LT EYE INJURY DIAGNOSES: - Unspecified fall, initial encounter - Unqualified visual loss, left eye, normal vision right eye - Personal history of nicotine dependence - Hypothyroidism, unspecified - Allergy status to penicillin - Unspecified visual disturbance - [facility] (current) use of anticoagulants - Other cloth cutter (current) drug therapy - Striking against or struck by other objects, initial encounter - Essential (primary) hypertension - Allergy status to analgesic agent INPATIENT VISIT TRACKING (12 MO.) 08/21/2022 12:25 [facility] [place] TYPE: Medical Surgical COMPLAINT: - SP FALL W BILAT RIB FX CHRONIC ANTICOAGULATION 05/11/2022 00:44 [facility] [place] TYPE: Medical Surgical COMPLAINT: - ACUTE LUMBAR COMPRESSION FRACTURE, UNCONTROLLED PA DIAGNOSES: - Other specified postprocedural states - Low back pain, unspecified - Contact with and (suspected) exposure to COVID-19 - Personal history of nicotine dependence - Other cloth cutter (current) drug therapy - Acquired absence of other specified parts of digestive tract - Other alf (current) drug therapy - Personal history of nicotine dependence - Unspecified place in unspecified non-institutional (private) residence as the place of occurrence of the external cause - [facility] (current) use of anticoagulants - Hypothyroidism, unspecified - Presence of cardiac pacemaker - Fall on same level from slipping, tripping and stumbling without subsequent striking against object, initial encounter - Collapsed vertebra, not elsewhere classified, lumbar region, initial encounter for fracture - Collapsed vertebra, not elsewhere classified, lumbar region, initial encounter for fracture - Unspecified dementia without behavioral disturbance - Other fracture of second lumbar vertebra, initial encounter for closed fracture - Essential (primary) hypertension - Low back pain, unspecified - Hemiplegia and hemiparesis following cerebral infarction affecting right dominant side - Acquired absence of both cervix and uterus - Hemiplegia and hemiparesis following cerebral infarction affecting right dominant side - Other specified postprocedural states - Unspecified atrial fibrillation - Pure hypercholesterolemia, unspecified - Acquired absence of other organs - Allergy status to penicillin - Acquired absence of other specified parts of digestive tract - Pain in right hip - Presence of cardiac pacemaker - Unspecified atrial fibrillation - Contact with and (suspected) exposure to COVID-19 - Allergy status to penicillin - Fall on same level from slipping, tripping and stumbling without subsequent striking against object, initial encounter - Essential (primary) hypertension - Unspecified place in unspecified non-institutional (private) residence as the place of occurrence of the external cause - Unspecified dementia without behavioral disturbance - Acquired absence of other organs - Hypothyroidism, unspecified - Allergy status to other drugs, medicaments and biological substances - Pure hypercholesterolemia, unspecified - Presence of right artificial hip joint - Pain in right hip - Allergy status to other drugs, medicaments and biological substances - Presence of right artificial hip joint - [facility] (current) use of anticoagulants - Acquired absence of both cervix and uterus 03/31/2022 21:21 [facility] TYPE: Neurology DIAGNOSES: 18932. Central retinal artery occlusion, left eye [email or web address]
== END 2022-09-05 19:46 | disposition home or self-care (01) ==
LOC: ED 16:12
DX: S09.90XA Unspecified injury of head, initial encounter (principal); S22.39XD Fracture of one rib, unspecified side, subsequent encounter for fracture with routine healing; I10 Essential (primary) hypertension; E78.00 Pure hypercholesterolemia, unspecified; Z87.891 Personal history of nicotine dependence; Z88.0 Allergy status to penicillin; Z88.6 Allergy status to analgesic agent; W18.30XA Fall on same level, unspecified, initial encounter
CPT/HCPCS: 70450; 71045; 99284-25

== ENCOUNTER 2023-03-07 05:50 | Day surgery (SDC) | payer MEDICARE ==
[~2023-03-07] VITALS: Ht 157.5 cm; Wt 86.5 kg
[~2023-03-07 05:50] MED LIST changes: +BACTRIM DS TAB1 EACH PO; +CALCIUM500 MG PO; +ROSUVASTATIN CA10 MG PO
[2023-03-07 06:07] VITALS: BP 135/62
[2023-03-07] MEDS ORDERED: METOPROLOL SUC200 MG PO (06:36)
--- NOTE | 2023-03-07 08:15 | NUR ---
Spoke with Dr. Cosme and orders for SNF placement completed. Multiple texts from Crystal from [facility] this AM asking when this pt will arrive. Reminded this pt was having surgery today and cannot dc until she goes through recovery and meets surgery protocols. I am also awaiting the surgery note which was dictated by Dr. Cosme. I called medical records and they will request stat completion.
[2023-03-07] MEDS ORDERED: LEXAPRO10 MG PO ×2 (08:33→08:37)
[2023-03-07] MEDS ORDERED: TRAMADOL HCL50 MG PO (08:35)
--- NOTE | 2023-03-07 08:40 | NUR ---
03/07/23 0840 Iza Cosme 0814 PT TO PACU COUGHTING, PROPULSION GENERATOR REPAIRER REPORTS LARYNGOSPASM DURING SURGERY, PT SPITTING UP CLEAR SPUTUM, DUO NEB ORDERED AND GIVEN.
[2023-03-07 09:23] VITALS: BP 126/59
--- NOTE | 2023-03-07 09:52 | NUR ---
LE 0920-PATIENT BACK TO ROOM FROM PACU ON 2L VIA WI. RECEIVED REPORT FROM SARANYA CATALAN. PATIENT IS AWAKE SITTING UP IN BED. RESP EVEN AND UNLABORED. PATIENT HAS A COUGH AND USING SUCTION TO CLEAR SECRETIONS. O2 SAT LOW 90'S ON 2L, WHEN PATIENT COUGHS O2 SATS INCREASED TO HIGH 90'S. ENCOURAGED PATIENT TO TAKE DEEP BREATHS AND COUGH. DENIES PAIN AND NAUSEA. TAKING SIPS OF WATER. CALL LIGHT WITHIN REACH.
--- NOTE | 2023-03-07 10:20 | NUR ---
Multiple attempts to fax face sheet, orders, PASRR, covid test, OP note,rx to [facility]. Called Judie and was given a different number to fax. Chart faxed and received confirmation. She is now stating ok for pt to arrive between 11:00 and 1300. Ramila MONTERO, will transport.
[2023-03-07 10:25] VITALS: BP 135/53
--- NOTE | 2023-03-07 10:51 | NUR ---
LE 1015-PATIENT UPDATE GIVEN TO LIZY RODARTE. VO FOR ONE VIEW CHEST X-RAY. LE 1020-TITRATED O2 OFF. O2 SAT IN LOWER 90'S ON RA. WILL CONTINUE TO MONITOR. LE 1025-PATIENT SITING UP IN BED. RESP EVEN AND UNLABORED. O2 SATS IN THE MID 90'S ON RA. PATIENT CONTINUES TO COUGH AND USE SUCTION TO HELP WITH HER SECRETIONS. DENIES PAIN AND NAUSEA. DRESSING IS CLEAN, DRY, AND INTACT. ICE PACK IN PLACE. PATIENT TAKING SIPS OF WATER. FAMILY AT BEDSIDE. CALL LIGHT WITHIN REACH. LE 1030-X-RAY IN ROOM. LIZY RODARTE REVIEWS IMAGINE AND STATES PATIENT CAN BE DISCHARGED.
--- NOTE | 2023-03-07 10:57 | NUR ---
Packet completed for [facility] and taken to Ramila in [place]. Asked her to deliver to [facility] and included in this packet are the prescriptions for meds. Spoke with Daylin Israel and asked if they can call a report to [facility].
--- NOTE | 2023-03-07 11:00 | OR ---
[facility] [address] [place], [place] [address] Signed DATE OF OPERATION: 03/07/2023 SURGEON: Freddie Cosme MD PREOPERATIVE DIAGNOSIS: Right index metacarpal fracture. POSTOPERATIVE DIAGNOSIS: Right index metacarpal fracture. PROCEDURE PERFORMED: Open reduction and internal fixation, right index metacarpal. CONTROL CENTER OPERATOR: None. ANESTHESIA: General. BLOOD LOSS: None. TOURNIQUET TIME: 37 minutes. IMPLANTS: Four 2.4 x 12 and 14 screws. BRIEF HISTORY: Halley is an 82-year-old female, who about a month ago underwent ORIF of the distal radius fracture utilizing a bridge plate. She fell out of bed earlier this week and had extreme swelling in her hand. Radiographs showed the index metacarpal to be fractured around the screws for the bridge plate. The risks and benefits of operative fixation were discussed with her and she elected to proceed. DESCRIPTION OF PROCEDURE: Once consent was obtained, she was taken to the operating room. After adequate anesthesia, she was placed on the operating table with a hand table. The arm was placed in well-padded proximal arm tourniquet, prepped and draped in a standard sterile fashion. The arm was exsanguinated using Esmarch bandage and tourniquet inflated to 200 Electronically Signed By: FREDDIE COSME MD 03/07/23 1100 PATIENT NAME: HALLEY NARAYANAN OPERATIVE REPORT DATE OF : 36 REPORT #: [id number] PHYSICIAN: FREDDIE COSME MD PCP: ASH DHILLON MD REPORT IS CONFIDENTIAL AND NOT TO BE RELEASED WITHOUT AUTHORIZATION [facility] [address] [facility] [place] [place] [address] Signed mmHg. The prior dorsal incision was incised and taken down through the skin and subcutaneous tissue with care taken to protect the extensor tendons. The scar was elevated off the bridge plate and the two screws were removed. The fracture was readily identifiable and was cleared of debris and reduced using a clamp. The plate was then repositioned and the four screws were placed through the bridge plate crossing the fracture. A lag screw was also placed across the fracture. Excellent reduction and stabilization was obtained. The wound was copiously irrigated with normal saline and closed with 3-0 Monocryl and Steri-Strips. She was placed in a radial gutter splint including the index and long fingers. She tolerated the procedure well. All sponge, needle, and instrument counts were correct. We did dress the wound with Allevyn dressing. Freddie Cosme MD BA/ALLENL /[id number] Copies: ~ Electronically Signed By: FREDDIE COSME MD 03/07/23 1100 PATIENT NAME: HALLEY NARAYANAN OPERATIVE REPORT DATE OF : 36 REPORT #: [id number] PHYSICIAN: FREDDIE COSME MD PCP: ASH DHILLON MD REPORT IS CONFIDENTIAL AND NOT TO BE RELEASED WITHOUT AUTHORIZATION
--- NOTE | 2023-03-07 12:01 | NUR ---
LE 1115-PATIENT SITTING UP IN BED. RESP EVEN AND UNLABORED. PATIENT CONTINUES TO HAVE A PRODUCTIVE COUGH. DENIES PAIN AND NAUSEA. DRESSING IS CLEAN, DRY, AND INTACT. PATIENT IS READY TO GO HOME. LE 1120-PATIENT SITTING AT THE BEDSIDE. THIS RN AND STUDENT NURSE ASSIST PATIENT IN GETTING DRESSED. GAIT UNSTEADY.
--- NOTE | 2023-03-07 12:04 | NUR ---
MERLYN 1130-PROVIDED PATIENT AND FAMILY MEMBER WITH DISCHARGE INSTRUCTIONS. ALL QUESTIONS ANSWERED. ASSIST PATIENT WITH TRANSFER TO WHEELCHAIR. GAIT UNSTEADY BUT TOLERATED WELL. MERLYN 1135-TRANSFERED PATIENT TO FRONT OF HOSPITAL WHERE FAMILY WAS WAITING WITH THE CAR. FAMILY ASSIST PATIENT WITH TRANSFER TO CAR. MERLYN 1150-THIS RN CALLED [facility] AND VERBAL REPORT GIVEN TO GRID TRIMMER. ALL QUESTIONS ANSWERED. ADVISED TO CALL DAY SURGERY BACK WITH ANY QUESTIONS.
== END 2023-03-07 11:35 | disposition home or self-care (01) ==
LOC: DS 05:50
PROVIDERS: ATTEND Specialist
PROC: 0PSP04Z Reposition Right Metacarpal with Internal Fixation Device, Open Approach (ICD-10-PCS; principal; 2023-03-07 07:00)
DX: S62.320A Displaced fracture of shaft of second metacarpal bone, right hand, initial encounter for closed fracture (principal); W06.XXXA Fall from bed, initial encounter; Z88.6 Allergy status to analgesic agent; Z88.8 Allergy status to other drugs, medicaments and biological substances
CPT/HCPCS: 36415; 64417; 71045; 73120; 76942; 80053; 85025; C1713; J0690; J1100; J2704; J2795; J3010; J7121

== ENCOUNTER 2023-07-04 11:02 | Emergency (ER) | payer MEDICARE ==
[~2023-07-04] VITALS: Ht 157.5 cm; Wt 101.2 kg
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
[2023-07-04 13:15] LABS: BILIRUBIN, URINE NEGATIVE (negative); BLOOD/HGB, URINE NEGATIVE (Negative); KETONE, URINE NEGATIVE (Negative); LEUK ESTERASE, URINE MODERATE (negative); NITRITE, URINE NEGATIVE (negative)
[2023-07-04 13:24] LABS: BACTERIA, URINE RARE /hpf (negative); CASTS, URINE NONE SEEN \\lpf; COLLECTION TYPE, URINE CLEAN CATCH; CRYSTALS, URINE NONE SEEN (0-1+); EPITHELIAL CELLS, URINE SQUAMOUS 1+ /lpf (0-1+); RED BLOOD CELLS, URINE 0-1 /hpf (0-5); REFLEX CULTURE, URINE Yes (No); WHITE BLOOD CELLS, URINE >50 /HPF (0-5)
[2023-07-04 13:39] LABS: BASOPHILS 0.4 % (0-2); EOSINOPHILS 2.9 % (0-6); HEMATOCRIT 38.5 % (35.0-50.0); HEMOGLOBIN 12.7 g/dL (12.0-18.0); LYMPHOCYTES 24.8 % (24-44); MCH 30.6 (27-36); MCHC 32.8 g/dl (30-36); MCV 93.1 fl (81-99); MONOCYTES 10.9 % (0-12); RBC 4.14 M/ul (4.3-5.7); RDW 14.2 (10.5-15.0)
[2023-07-04 13:46] LABS: ALBUMIN 3.2 g/dL (3.4-5.0); ANION GAP 12.2 (7-21); BILIRUBIN, TOTAL 0.4 ng/dL (0.2-1.0); BUN/CREATININE RATIO 18.36 (6.0-28.6); CALCIUM 8.7 mg/dL (8.5-10.1); CREATININE, SERUM 0.98 mg/dL (0.55-1.02); POTASSIUM 4.2 mmol/L (3.5-5.1); PROTEIN, TOTAL 6.4 g/dL (6.4-8.2)
[2023-07-04 14:02] LABS: PLATELET COUNT 167 K/uL (140-440)
[2023-07-04] MEDS ORDERED: CEPHALEXIN500 M1 PO (14:13)
[2023-07-04 14:26] VITALS: BP 135/63
== END 2023-07-04 14:48 | disposition home or self-care (01) ==
LOC: ED 11:02
PROVIDERS: Emergency Medicine
DX: R60.0 Localized edema (principal); N39.0 Urinary tract infection, site not specified; I10 Essential (primary) hypertension; E03.9 Hypothyroidism, unspecified; Z87.891 Personal history of nicotine dependence; Z88.0 Allergy status to penicillin; Z88.6 Allergy status to analgesic agent; Z79.899 Other long term (current) drug therapy
CPT/HCPCS: 36415; 51701; 80053; 81001; 85025; 85060; 87088; 93971; 99284-25

== ENCOUNTER 2023-07-29 15:30 | Emergency (ER) | payer MEDICARE ==
[~2023-07-29] VITALS: Ht 157.5 cm; Wt 103.4 kg
--- OUTSIDE RECORDS SUMMARY | ~2023-07-29 | XMS | Continuity of Care Document ---
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 + + + + | 2023-03-06 15:52 | HYPOTHYROIDISM, | [facility] | | | UNSPECIFIED | | + + + + | 2023-03-06 15:52 | Essential (primary) | [facility] | | | hypertension | | + + + + | 2023-03-06 15:52 | HEMIPLGA FOLLOWING | [facility] | | | CEREBRAL INFRC AFF RIGHT | | | | DOMINA | | + + + + | 2023-03-06 15:52 | URINARY TRACT INFECTION, | [facility] | | | SITE NOT SPECIFIED | | + + + + | 2023-03-06 15:52 | ALTERED MENTAL STATUS, | [facility] | | | UNSPECIFIED | | + + + + | 2023-03-06 15:52 | USP (CURRENT) USE OF | [facility] | | | 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 | | + + + + | 2023-03-06 15:52 | 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) | [facility] | | | DRUG THERAPY | | + + + + | 2023-03-06 15:52 | 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 | | + + + + | 2023-03-06 15:52 | ALLERGY STATUS TO | [facility] | | | PENICILLIN | | + + + + | 2023-03-06 15:52 | ALLERGY STATUS TO | [facility] | | | ANALGESIC AGENT STATUS | | + + + + | 2023-03-07 05:50 | DISP FX OF SHAFT OF SECOND | [facility] | | | METACARPAL BONE, RIGHT | | | | HAND, INIT | | + + + + | 2023-03-07 05:50 | FALL FROM BED, INITIAL | [facility] | | | ENCOUNTER | | + + + + | 2023-03-07 05:50 | ALLERGY STATUS TO | [facility] | | | ANALGESIC AGENT STATUS | | + + + + | 2023-03-07 05:50 | ALLERGY STATUS TO OTH | [facility] | | | DRUG/MEDS/BIOL SUBST STATUS | | | | | | + + + + | 2023-05-19 09:11 | Syncope and collapse | [facility] | + + + + | 2023-05-19 09:15 | Syncope and collapse | [facility] | + + + + | 2023-06-05 09:31 | PAIN DUE TO INTERNAL | [facility] | | | ORTHOPEDIC PROSTH DEV/GRFT, | | | | INIT | | + + + + | 2023-06-06 07:20 | DISP FX OF SHAFT OF 2ND MC | [facility] | | | BONE, R HAND, 7THD | | + + + + | 2023-06-06 07:20 | UNSPECIFIED FALL, | [facility] | | | SUBSEQUENT ENCOUNTER | | + + + + | 2023-06-06 07:20 | ENCOUNTER FOR REMOVAL OF | [facility] | | | INTERNAL FIXATION DEVICE | | + + + + | 2023-07-04 11:04 | HYPOTHYROIDISM, | [facility] | | | UNSPECIFIED | | + + + + | 2023-07-04 11:04 | Essential (primary) | [facility] | | | hypertension | | + + + + | 2023-07-04 11:04 | URINARY TRACT INFECTION, | [facility] | | | SITE NOT SPECIFIED | | + + + + | 2023-07-04 11:04 | LOCALIZED SWELLING, MASS | [facility] | | | AND LUMP, LEFT LOWER LIMB | | + + + + | 2023-07-04 11:04 | LOCALIZED EDEMA | [facility] | + + + + | 2023-07-04 11:04 | 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) | [facility] | | | DRUG THERAPY | | + + + + | 2023-07-04 11:04 | 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 | | + + + + | 2023-07-04 11:04 | ALLERGY STATUS TO | [facility] | | | PENICILLIN | | + + + + | 2023-07-04 11:04 | ALLERGY STATUS TO | [facility] | | | ANALGESIC AGENT STATUS | | + + + + Procedures + + + + | date | description | facility | + + + + | 2023-06-06 00:00 | REMOVAL OF INT FIX FROM R | [facility] | | | METACARPAL, OPEN APPROACH | | + + + + | 2023-06-06 00:00 | REMOVAL OF SUPPORT IMPLANT | [facility] | | | | | + + + + | 2023-03-07 00:00 | Open reduction and | [facility] | | | internal fixation (ORIF) of | | | | fracture of wrist | | + + + + | 2023-06-06 00:00 | INTRODUCE ANESTHETIC IN | [facility] | | | PERIPH NRV, PLEXI, PERC | | + + + + | 2023-06-06 00:00 | GRIFFIN AA&/MARI AX NERVE IMG | [facility] | + + + + | 2023-01-09 00:00 | Open reduction and | [facility] | | | internal fixation (ORIF) of | | | | right wrist | | + + + + | 2023-03-07 00:00 | Open reduction and | [facility] | | | internal fixation (ORIF) of | | | | fracture of wrist | | + + + + Results/Labs +--------+--------+ +---------+--------+---------+ | test | date | facility | value | unit | notes | +--------+--------+ +---------+--------+---------+ + + | Result panel 1 | + + + + + +-----+ + + | | 2022-03-31 | [facility] | 2 | (missing) | (missing) | | (unavailable | 15:42 | [place] [facility] | | | | + + + +-----+ + + + + | Result panel 2 | + + + + + + + + + | | 2022-03-31 | [facility] | <0.2 mg/dL | (missing) | (missing) | | (unavailable | 15:42 [facility] | | | | + + + + + + + + + | Result panel 3 | + + + + + + + + + | | 2022-05-10 | [facility] | NEGATIVE | (missing) | (missing) | | (unavailable | 23:40 [facility] | | | | + + + + + + + + + | Result panel 4 | + + + + + + + + + | | 2022-05-10 | [facility] | NEGATIVE | (missing) | (missing) | | (unavailable | 23:40 [facility] | | | | + + + + + + + + + | Result panel 5 | + + + + + + + + + | | 2022-05-10 | [facility] | NEGATIVE | (missing) | (missing) | | (unavailable | 23:40 [facility] | | | | + + + + + + + + + | Result panel 6 | + + + + + + + + + | | 2022-05-10 | [facility] | NEGATIVE | (missing) | (missing) | | (unavailable | 23:40 [facility] | | | | + + + + + + + + + | Result panel 7 | + + + + + +-------+ + + | | 2022-05-10 | [facility] | 8.9 | (missing) | (missing) | | (unavailable | 23:51 [facility] | | | | + + + +-------+ + + + + | Result panel 8 | + + + + + +--------+ + + | | 2022-05-10 | [facility] | 4.33 | (missing) | (missing) | | (unavailable | 23:51 [facility] | | | | + + + +--------+ + + + + | Result panel 9 | + + + + + +--------+ + + | | 2022-05-10 | [facility] | 13.1 | (missing) | (missing) | | (unavailable | 23:51 [facility] | | | | + + + +--------+ + + + + | Result panel 10 | + + + + + +--------+ + + | | 2022-05-10 | [facility] | 39.9 | (missing) | (missing) | | (unavailable | 23:51 [facility] | | | | + + + +--------+ + + + + | Result panel 11 | + + + + + +--------+ + + | | 2022-05-10 | [facility] | 92.1 | (missing) | (missing) | | (unavailable | 23:51 [facility] | | | | + + + +--------+ + + + + | Result panel 12 | + + + + + +--------+ + + | | 2022-05-10 | [facility] | 30.4 | (missing) | (missing) | | (unavailable | 23:51 [facility] | | | + + + +--------+ + + + + | Result panel 13 | + + + + + +--------+ + + | | 2022-05-10 | [facility] | 33.0 | (missing) | (missing) | | (unavailable | 23:51 [facility] | | | | + + + +--------+ + + + + | Result panel 14 | + + + + + +--------+ + + | | 2022-05-10 | [facility] | 14.2 | (missing) | (missing) | | (unavailable | 23:51 [facility] | | | | + + + +--------+ + + + + | Result panel 15 | + + + + + +-------+ + + | | 2022-05-10 | [facility] | 161 | (missing) | (missing) | | (unavailable | 23:51 [facility] | | | + + + +-------+ + + + + | Result panel 16 | + + + + + +--------+ + + | | 2022-05-10 | [facility] | 72.9 | (missing) | (missing) | | (unavailable | 23:51 [facility] | | | + + + +--------+ + + + + | Result panel 17 | + + + + + +--------+ + + | | 2022-05-10 | [facility] | 17.5 | (missing) | (missing) | | (unavailable | 23:51 [facility] | | | | + + + +--------+ + + + + | Result panel 18 | + + + + + +-------+ + + | | 2022-05-10 | [facility] | 7.7 | (missing) | (missing) | | (unavailable | 23:51 [facility] | | | | + + + +-------+ + + + + | Result panel 19 | + + + + + +-------+ + + | | 2022-05-10 | [facility] | 1.5 | (missing) | (missing) | | (unavailable | 23:51 [facility] | | | + + + +-------+ + + + + | Result panel 20 | + + + + + +-------+ + + | | 2022-05-10 | [facility] | 0.4 | (missing) | (missing) | | (unavailable | 23:51 [facility] | | | + + + +-------+ + + + + | Result panel 21 | + + + + + +-------+---------+ + | | 2022-05-10 | [facility] | 112 | mg/dL | (missing) | | (unavailable | 23:51 [facility] | | | + + + +-------+---------+ + + + | Result panel 22 | + + + + + +------+---------+ + | | 2022-05-10 | [facility] | 26 | mg/dL | (missing) | | (unavailable | 23:51 [facility] | | | + + + +------+---------+ + + + | Result panel 23 | + + + + + +--------+---------+ + | | 2022-05-10 | [facility] | 1.52 | mg/dL | (missing) | | (unavailable | 23:51 [facility] | | | + + + +--------+---------+ + + + | Result panel 24 | + + + + + +------+ + + | | 2022-05-10 | [facility] | 34 | (missing) | (missing) | | (unavailable | 23:51 [facility] | | | + + + +------+ + + + + | Result panel 25 | + + + + + +---------+ + + | | 2022-05-10 | [facility] | 17.10 | (missing) | (missing) | | (unavailable | 23:51 [facility] | | | | + + + +---------+ + + + + | Result panel 26 | + + + + + +-------+ + + | | 2022-05-10 | [facility] | 140 | (missing) | (missing) | | (unavailable | 23:51 [facility] | | | + + + +-------+ + + + + | Result panel 27 | + + + + + +-------+ + + | | 2022-05-10 | [facility] | 4.6 | (missing) | (missing) | | (unavailable | 23:51 [facility] | | | + + + +-------+ + + + + | Result panel 28 | + + + + + +-------+ + + | | 2022-05-10 | [facility] | 104 | (missing) | (missing) | | (unavailable | 23:51 [facility] | | | + + + +-------+ + + + + | Result panel 29 | + + + + + +------+ + + | | 2022-05-10 | [facility] | 29 | (missing) | (missing) | | (unavailable | 23:51 [facility] | | | + + + +------+ + + + + | Result panel 30 | + + + + + +--------+ + + | | 2022-05-10 | [facility] | 11.6 | (missing) | (missing) | | (unavailable | 23:51 [facility] | | | + + + +--------+ + + + + | Result panel 31 | + + + + + +-------+---------+ + | | 2022-05-10 | [facility] | 8.3 | mg/dL | (missing) | | (unavailable | 23:51 [facility] | | | + + + +-------+---------+ + + + | Result panel 32 | + + + + + +-------+---------+ + | | 2022-05-10 | [facility] | 2.3 | mg/dL | (missing) | | (unavailable | 23:51 [facility] | | | | + + + +-------+---------+ + + + | Result panel 33 | + + + + + +-------+ + + | | 2022-05-10 | [facility] | 6.8 | (missing) | (missing) | | (unavailable | 23:51 [facility] | | | + + + +-------+ + + + + | Result panel 34 | + + + + + +-------+ + + | | 2022-05-10 | [facility] | 3.5 | (missing) | (missing) | | (unavailable | 23:51 [facility] | | | + + + +-------+ + + + + | Result panel 35 | + + + + + +-------+ + + | | 2022-05-10 | [facility] | 3.3 | (missing) | (missing) | | (unavailable | 23:51 [facility] | | | + + + +-------+ + + + + | Result panel 36 | + + + + + +--------+ + + | | 2022-05-10 | [facility] | 1.06 | (missing) | (missing) | | (unavailable | 23:51 [facility] | | | + + + +--------+ + + + + | Result panel 37 | + + + + + +-------+ + + | | 2022-05-10 | [facility] | 0.4 | (missing) | (missing) | | (unavailable | 23:51 [facility] | | | + + + +-------+ + + + + | Result panel 38 | + + + + + +------+ + + | | 2022-05-10 | [facility] | 55 | (missing) | (missing) | | (unavailable | 23:51 [facility] | | | + + + +------+ + + + + | Result panel 39 | + + + + + +------+ + + | | 2022-05-10 | [facility] | 45 | (missing) | (missing) | | (unavailable | 23:51 [facility] | | | | + + + +------+ + + + + | Result panel 40 | + + + + + +------+ + + | | 2022-05-10 | [facility] | 89 | (missing) | (missing) | | (unavailable | 23:51 [facility] | | | + + + +------+ + + + + | Result panel 41 | + + + + + +--------+ + + | | 2022-05-11 | [facility] | 13.5 | (missing) | (missing) | | (unavailable | 00:17 [facility] | | | + + + +--------+ + + + + | Result panel 42 | + + + + + +--------+ + + | | 2022-05-11 | [facility] | 1.06 | (missing) | (missing) | | (unavailable | 00:17 [facility] | | | + + + +--------+ + + + + | Result panel 43 | + + + + + +--------+ + + | | 2022-05-11 | [facility] | 28.4 | (missing) | (missing) | | (unavailable | 00:17 [facility] | | | + + + +--------+ + + + + | Result panel 44 | + + + + + +-------+---------+ + | | 2022-08-20 | [facility] | 2.4 | mg/dL | (missing) | | (unavailable | 16:35 [facility] | | | + + + +-------+---------+ + + + | Result panel 45 | + + + + + +-------+ + + | | 2022-08-20 | [facility] | 6.9 | (missing) | (missing) | | (unavailable | 16:35 [facility] | | | + + + +-------+ + + + + | Result panel 46 | + + + + + +-------+---------+ + | | 2022-08-20 | [facility] | 2.4 | mg/dL | (missing) | | (unavailable | 16:35 [facility] | | | | + + + +-------+---------+ + + + | Result panel 47 | + + + + + +-------+ + + | | 2022-08-20 | [facility] | 6.9 | (missing) | (missing) | | (unavailable | 16:35 [facility] | | | | + + + +-------+ + + + + | Result panel 48 | + + + + + + + + + | | 2022-08-20 | [facility] | YELLOW | (missing) | (missing) | | (unavailable | 19:57 [facility] | | | + + + + + + + + + | Result panel 49 | + + + + + +---------+ + + | | 2022-08-20 | [facility] | CLEAR | (missing) | (missing) | | (unavailable | 19:57 [facility] | | | | + + + +---------+ + + + + | Result panel 50 | + + + + + + + + + | | 2022-08-20 | [facility] | NEGATIVE | (missing) | (missing) | | (unavailable | 19:57 [facility] | | | | + + + + + + + + + | Result panel 51 | + + + + + + + + + | | 2022-08-20 | [facility] | NEGATIVE | (missing) | (missing) | | (unavailable | 19:57 [facility] | | | + + + + + + + + + | Result panel 52 | + + + + + + + + + | | 2022-08-20 | [facility] | NEGATIVE | (missing) | (missing) | | (unavailable | 19:57 [facility] | | | + + + + + + + + + | Result panel 53 | + + + + + +---------+ + + | | 2022-08-20 | [facility] | 1.010 | (missing) | (missing) | | (unavailable | 19:57 [facility] | | | + + + +---------+ + + + + | Result panel 54 | + + + + + + + + + | | 2022-08-20 | [facility] | NEGATIVE | (missing) | (missing) | | (unavailable | 19:57 [facility] | | | + + + + + + + + + | Result panel 55 | + + + + + +-------+ + + | | 2022-08-20 | [facility] | 6.5 | (missing) | (missing) | | (unavailable | 19:57 [facility] | | | + + + +-------+ + + + + | Result panel 56 | + + + + + + + + + | | 2022-08-20 | [facility] | NEGATIVE | (missing) | (missing) | | (unavailable | 19:57 [facility] | | | + + + + + + + + + | Result panel 57 | + + + + + + + + + | | 2022-08-20 | [facility] | NORMAL | (missing) | (missing) | | (unavailable | 19:57 [facility] | | | + + + + + + + + + | Result panel 58 | + + + + + + + + + | | 2022-08-20 | [facility] | POSITIVE | (missing) | (missing) | | (unavailable | 19:57 [facility] | | | + + + + + + + + + | Result panel 59 | + + + + + +---------+ + + | | 2022-08-20 | [facility] | TRACE | (missing) | (missing) | | (unavailable | 19:57 [facility] | | | + + + +---------+ + + + + | Result panel 60 | + + + + + +-------+ + + | | 2022-08-20 | [facility] | 2-3 | (missing) | (missing) | | (unavailable | 19:57 [facility] | | | + + + +-------+ + + + + | Result panel 61 | + + + + + +---------+ + + | | 2022-08-20 | [facility] | 12-20 | (missing) | (missing) | | (unavailable | 19:57 [facility] | | | | + + + +---------+ + + + + | Result panel 62 | + + + + + + + + + | | 2022-08-20 | [facility] | SQUAMOUS 1+ | (missing) | (missing) | | (unavailable | 19:57 [facility] | | | + + + + + + + + + | Result panel 63 | + + + + + + + + + | | 2022-08-20 | [facility] | NONE SEEN | (missing) | (missing) | | (unavailable | 19:57 [facility] | | | + + + + + + + + + | Result panel 64 | + + + + + +------+ + + | | 2022-08-20 | [facility] | 4+ | (missing) | (missing) | | (unavailable | 19:57 [facility] | | | | + + + +------+ + + + + | Result panel 65 | + + + + + + + + + | | 2022-08-20 | [facility] | NONE SEEN | (missing) | (missing) | | (unavailable | 19:57 [facility] | | | + + + + + + + + + | Result panel 66 | + + + + + +-------+ + + | | 2022-08-20 | [facility] | Yes | (missing) | (missing) | | (unavailable | 19:57 [facility] | | | + + + +-------+ + + + + | Result panel 67 | + + + + + + + + + | | 2022-08-20 | [facility] | CLEAN CATCH | (missing) | (missing) | | (unavailable | 19:57 [facility] | | | + + + + + + + + + | Result panel 68 | + + + + + + + + + | | 2022-08-20 | [facility] | YELLOW | (missing) | (missing) | | (unavailable | 19:57 [facility] | | | | + + + + + + + + + | Result panel 69 | + + + + + +---------+ + + | | 2022-08-20 | [facility] | CLEAR | (missing) | (missing) | | (unavailable | 19:57 [facility] | | | | + + + +---------+ + + + + | Result panel 70 | + + + + + + + + + | | 2022-08-20 | [facility] | NEGATIVE | (missing) | (missing) | | (unavailable | 19:57 [facility] | | | + + + + + + + + + | Result panel 71 | + + + + + + + + + | | 2022-08-20 | [facility] | NEGATIVE | (missing) | (missing) | | (unavailable | 19:57 [facility] | | | + + + + + + + + + | Result panel 72 | + + + + + + + + + | | 2022-08-20 | [facility] | NEGATIVE | (missing) | (missing) | | (unavailable | 19:57 [facility] | | | + + + + + + + + + | Result panel 73 | + + + + + +---------+ + + | | 2022-08-20 | [facility] | 1.010 | (missing) | (missing) | | (unavailable | 19:57 [facility] | | | | + + + +---------+ + + + + | Result panel 74 | + + + + + + + + + | | 2022-08-20 | [facility] | NEGATIVE | (missing) | (missing) | | (unavailable | 19:57 [facility] | | | | + + + + + + + + + | Result panel 75 | + + + + + +-------+ + + | | 2022-08-20 | [facility] | 6.5 | (missing) | (missing) | | (unavailable | 19:57 [facility] | | | | + + + +-------+ + + + + | Result panel 76 | + + + + + + + + + | | 2022-08-20 | [facility] | NEGATIVE | (missing) | (missing) | | (unavailable | 19:57 [facility] | | | | + + + + + + + + + | Result panel 77 | + + + + + + + + + | | 2022-08-20 | [facility] | NORMAL | (missing) | (missing) | | (unavailable | [facility]:57 [facility] | | | | + + + + + + + + + | Result panel 78 | + + + + + + + + + | | 2022-08-20 | [facility] | POSITIVE | (missing) | (missing) | | (unavailable | 19:57 [facility] | | | | + + + + + + + + + | Result panel 79 | + + + + + +---------+ + + | | 2022-08-20 | [facility] | TRACE | (missing) | (missing) | | (unavailable | 19:57 [facility] | | | | + + + +---------+ + + + + | Result panel 80 | + + + + + +-------+ + + | | 2022-08-20 | [facility] | 2-3 | (missing) | (missing) | | (unavailable | 19:57 [facility] | | | | + + + +-------+ + + + + | Result panel 81 | + + + + + +---------+ + + | | 2022-08-20 | [facility] | 12-20 | (missing) | (missing) | | (unavailable | 19:57 [facility] | | | | + + + +---------+ + + + + | Result panel 82 | + + + + + + + + + | | 2022-08-20 | [facility] | SQUAMOUS 1+ | (missing) | (missing) | | (unavailable | 19:57 [facility] | | | | + + + + + + + + + | Result panel 83 | + + + + + + + + + | | 2022-08-20 | [facility] | NONE SEEN | (missing) | (missing) | | (unavailable | [facility]:57 [facility] | | | | + + + + + + + + + | Result panel 84 | + + + + + +------+ + + | | 2022-08-20 | [facility] | 4+ | (missing) | (missing) | | (unavailable | 19:57 [facility] | | | | + + + +------+ + + + + | Result panel 85 | + + + + + + + + + | | 2022-08-20 | [facility] | NONE SEEN | (missing) | (missing) | | (unavailable | 19:57 [facility] | | | | + + + + + + + + + | Result panel 86 | + + + + + +-------+ + + | | 2022-08-20 | [facility] | Yes | (missing) | (missing) | | (unavailable | 19:57 [facility] | | | | + + + +-------+ + + + + | Result panel 87 | + + + + + + + + + | | 2022-08-20 | [facility] | CLEAN CATCH | (missing) | (missing) | | (unavailable | 19:57 [facility] | | | | + + + + + + + + + | Result panel 88 | + + + + + + + + + | | 2022-08-20 | [facility] | NEGATIVE | (missing) | (missing) | | (unavailable | 20:10 [facility] | | | | + + + + + + + + + | Result panel 89 | + + + + + + + + + | | 2022-08-20 | [facility] | NEGATIVE | (missing) | (missing) | | (unavailable | 20:10 [facility] | | | | + + + + + + + + + | Result panel 90 | + + + + + +-------+ + + | | 2022-08-22 | [facility] | 5.1 | (missing) | (missing) | | (unavailable | 05:35 [facility] | | | | + + + +-------+ + + + + | Result panel 91 | + + + + + +--------+ + + | | 2022-08-22 | [facility] | 3.96 | (missing) | (missing) | | (unavailable | 05:35 [facility] | | | | + + + +--------+ + + + + | Result panel 92 | + + + + + +--------+ + + | | 2022-08-22 | [facility] | 12.0 | (missing) | (missing) | | (unavailable | 05:35 [facility] | | | | + + + +--------+ + + + + | Result panel 93 | + + + + + +--------+ + + | | 2022-08-22 | [facility] | 36.5 | (missing) | (missing) | | (unavailable | 05:35 [facility] | | | | + + + +--------+ + + + + | Result panel 94 | + + + + + +--------+ + + | | 2022-08-22 | [facility] | 92.2 | (missing) | (missing) | | (unavailable | 05:35 | [facility] | | | | + + + +--------+ + + + + | Result panel 95 | + + + + + +--------+ + + | | 2022-08-22 | [facility] | 30.4 | (missing) | (missing) | | (unavailable | 05:35 [facility] | | | + + + +--------+ + + + + | Result panel 96 | + + + + + +--------+ + + | | 2022-08-22 | [facility] | 33.0 | (missing) | (missing) | | (unavailable | 05:35 [facility] | | | + + + +--------+ + + + + | Result panel 97 | + + + + + +--------+ + + | | 2022-08-22 | [facility] | 15.3 | (missing) | (missing) | | (unavailable | 05:35 [facility] | | | + + + +--------+ + + + + | Result panel 98 | + + + + + +-------+ + + | | 2022-08-22 | [facility] | 128 | (missing) | (missing) | | (unavailable | 05:35 [facility] | | | + + + +-------+ + + + + | Result panel 99 | + + + + + +--------+ + + | | 2022-08-22 | [facility] | 54.3 | (missing) | (missing) | | (unavailable | 05:35 [facility] | | | + + + +--------+ + + + + | Result panel 100 | + + + + + +--------+ + + | | 2022-08-22 | [facility] | 26.7 | (missing) | (missing) | | (unavailable | 05:35 [facility] | | | + + + +--------+ + + + + | Result panel 101 | + + + + + +--------+ + + | | 2022-08-22 | [facility] | 12.8 | (missing) | (missing) | | (unavailable | 05:35 [facility] | | | + + + +--------+ + + + + | Result panel 102 | + + + + + +-------+ + + | | 2022-08-22 | [facility] | 5.4 | (missing) | (missing) | | (unavailable | 05:35 [facility] | | | + + + +-------+ + + + + | Result panel 103 | + + + + + +-------+ + + | | 2022-08-22 | [facility] | 0.8 | (missing) | (missing) | | (unavailable | 05:35 [facility] | | | + + + +-------+ + + + + | Result panel 104 | + + + + + +-------+---------+ + | | 2022-08-22 | [facility] | 100 | mg/dL | (missing) | | (unavailable | 05:35 [facility] | | | + + + +-------+---------+ + + + | Result panel 105 | + + + + + +------+---------+ + | | 2022-08-22 | [facility] | 18 | mg/dL | (missing) | | (unavailable | 05:35 [facility] | | | + + + +------+---------+ + + + | Result panel 106 | + + + + + +--------+---------+ + | | 2022-08-22 | [facility] | 1.20 | mg/dL | (missing) | | (unavailable | 05:35 [facility] | | | + + + +--------+---------+ + + + | Result panel 107 | + + + + + +------+ + + | | 2022-08-22 | [facility] | 45 | (missing) | (missing) | | (unavailable | 05:35 [facility] | | | + + + +------+ + + + + | Result panel 108 | + + + + + +---------+ + + | | 2022-08-22 | [facility] | 15.00 | (missing) | (missing) | | (unavailable | 05:35 [facility] | | | + + + +---------+ + + + + | Result panel 109 | + + + + + +-------+ + + | | 2022-08-22 | [facility] | 138 | (missing) | (missing) | | (unavailable | 05:35 [facility] | | | + + + +-------+ + + + + | Result panel 110 | + + + + + +-------+ + + | | 2022-08-22 | [facility] | 4.3 | (missing) | (missing) | | (unavailable | 05:35 [facility] | | | + + + +-------+ + + + + | Result panel 111 | + + + + + +-------+ + + | | 2022-08-22 | [facility] | 103 | (missing) | (missing) | | (unavailable | 05:35 [facility] | | | + + + +-------+ + + + + | Result panel 112 | + + + + + +------+ + + | | 2022-08-22 | [facility] | 27 | (missing) | (missing) | | (unavailable | 05:35 [facility] | | | + + + +------+ + + + + | Result panel 113 | + + + + + +--------+ + + | | 2022-08-22 | [facility] | 12.3 | (missing) | (missing) | | (unavailable | 05:35 [facility] | | | + + + +--------+ + + + + | Result panel 114 | + + + + + +-------+---------+ + | | 2022-08-22 | [facility] | 8.0 | mg/dL | (missing) | | (unavailable | 05:35 [facility] | | | + + + +-------+---------+ + + + | Result panel 115 | + + + + + +-------+ + + | | 2022-08-22 | [facility] | 5.9 | (missing) | (missing) | | (unavailable | 05:35 [facility] | | | + + + +-------+ + + + + | Result panel 116 | + + + + + +-------+ + + | | 2022-08-22 | [facility] | 3.0 | (missing) | (missing) | | (unavailable | 05:35 [facility] | | | + + + +-------+ + + + + | Result panel 117 | + + + + + +-------+ + + | | 2022-08-22 | [facility] | 2.9 | (missing) | (missing) | | (unavailable | 05:35 [facility] | | | + + + +-------+ + + + + | Result panel 118 | + + + + + +--------+ + + | | 2022-08-22 | [facility] | 1.03 | (missing) | (missing) | | (unavailable | 05:35 [facility] | | | + + + +--------+ + + + + | Result panel 119 | + + + + + +-------+ + + | | 2022-08-22 | [facility] | 0.3 | (missing) | (missing) | | (unavailable | 05:35 [facility] | | | + + + +-------+ + + + + | Result panel 120 | + + + + + +------+ + + | | 2022-08-22 | [facility] | 57 | (missing) | (missing) | | (unavailable | 05:35 [facility] | | | + + + +------+ + + + + | Result panel 121 | + + + + + +-------+ + + | | 2022-08-22 | [facility] | 113 | (missing) | (missing) | | (unavailable | 05:35 [facility] | | | + + + +-------+ + + + + | Result panel 122 | + + + + + +-------+ + + | | 2022-08-22 | [facility] | 105 | (missing) | (missing) | | (unavailable | 05:35 [facility] | | | + + + +-------+ + + + + | Result panel 123 | + + + + + +-------+ + + | | 2022-08-22 | [facility] | 5.1 | (missing) | (missing) | | (unavailable | 05:35 [facility] | | | + + + +-------+ + + + + | Result panel 124 | + + + + + +--------+ + + | | 2022-08-22 | [facility] | 3.96 | (missing) | (missing) | | (unavailable | 05:35 [facility] | | | + + + +--------+ + + + + | Result panel 125 | + + + + + +--------+ + + | | 2022-08-22 | [facility] | 12.0 | (missing) | (missing) | | (unavailable | 05:35 [facility] | | | + + + +--------+ + + + + | Result panel 126 | + + + + + +--------+ + + | | 2022-08-22 | [facility] | 36.5 | (missing) | (missing) | | (unavailable | 05:35 [facility] | | | + + + +--------+ + + + + | Result panel 127 | + + + + + +--------+ + + | | 2022-08-22 | [facility] | 92.2 | (missing) | (missing) | | (unavailable | 05:35 [facility] | | | + + + +--------+ + + + + | Result panel 128 | + + + + + +--------+ + + | | 2022-08-22 | [facility] | 30.4 | (missing) | (missing) | | (unavailable | 05:35 [facility] | | | + + + +--------+ + + + + | Result panel 129 | + + + + + +--------+ + + | | 2022-08-22 | [facility] | 33.0 | (missing) | (missing) | | (unavailable | 05:35 [facility] | | | + + + +--------+ + + + + | Result panel 130 | + + + + + +--------+ + + | | 2022-08-22 | [facility] | 15.3 | (missing) | (missing) | | (unavailable | 05:35 [facility] | | | + + + +--------+ + + + + | Result panel 131 | + + + + + +-------+ + + | | 2022-08-22 | [facility] | 128 | (missing) | (missing) | | (unavailable | 05:35 [facility] | | | + + + +-------+ + + + + | Result panel 132 | + + + + + +--------+ + + | | 2022-08-22 | [facility] | 54.3 | (missing) | (missing) | | (unavailable | 05:35 [facility] | | | + + + +--------+ + + + + | Result panel 133 | + + + + + +--------+ + + | | 2022-08-22 | [facility] | 26.7 | (missing) | (missing) | | (unavailable | 05:35 [facility] | | | + + + +--------+ + + + + | Result panel 134 | + + + + + +--------+ + + | | 2022-08-22 | [facility] | 12.8 | (missing) | (missing) | | (unavailable | 05:35 [facility] | | | + + + +--------+ + + + + | Result panel 135 | + + + + + +-------+ + + | | 2022-08-22 | [facility] | 5.4 | (missing) | (missing) | | (unavailable | 05:35 [facility] | | | + + + +-------+ + + + + | Result panel 136 | + + + + + +-------+ + + | | 2022-08-22 | [facility] | 0.8 | (missing) | (missing) | | (unavailable | 05:35 [facility] | | | + + + +-------+ + + + + | Result panel 137 | + + + + + +-------+---------+ + | | 2022-08-22 | [facility] | 100 | mg/dL | (missing) | | (unavailable | 05:35 [facility] | | | + + + +-------+---------+ + + + | Result panel 138 | + + + + + +------+---------+ + | | 2022-08-22 | [facility] | 18 | mg/dL | (missing) | | (unavailable | 05:35 [facility] | | | + + + +------+---------+ + + + | Result panel 139 | + + + + + +--------+---------+ + | | 2022-08-22 | [facility] | 1.20 | mg/dL | (missing) | | (unavailable | 05:35 [facility] | | | + + + +--------+---------+ + + + | Result panel 140 | + + + + + +------+ + + | | 2022-08-22 | [facility] | 45 | (missing) | (missing) | | (unavailable | 05:35 [facility] | | | + + + +------+ + + + + | Result panel 141 | + + + + + +---------+ + + | | 2022-08-22 | [facility] | 15.00 | (missing) | (missing) | | (unavailable | 05:35 [facility] | | | + + + +---------+ + + + + | Result panel 142 | + + + + + +-------+ + + | | 2022-08-22 | [facility] | 138 | (missing) | (missing) | | (unavailable | 05:35 [facility] | | | + + + +-------+ + + + + | Result panel 143 | + + + + + +-------+ + + | | 2022-08-22 | [facility] | 4.3 | (missing) | (missing) | | (unavailable | 05:35 [facility] | | | + + + +-------+ + + + + | Result panel 144 | + + + + + +-------+ + + | | 2022-08-22 | [facility] | 103 | (missing) | (missing) | | (unavailable | 05:35 [facility] | | | + + + +-------+ + + + + | Result panel 145 | + + + + + +------+ + + | | 2022-08-22 | [facility] | 27 | (missing) | (missing) | | (unavailable | 05:35 [facility] | | | + + + +------+ + + + + | Result panel 146 | + + + + + +--------+ + + | | 2022-08-22 | [facility] | 12.3 | (missing) | (missing) | | (unavailable | 05:35 [facility] | | + + + +--------+ + + + + | Result panel 147 | + + + + + +-------+---------+ + | | 2022-08-22 | [facility] | 8.0 | mg/dL | (missing) | | (unavailable | 05:35 [facility] | | | + + + +-------+---------+ + + + | Result panel 148 | + + + + + +-------+ + + | | 2022-08-22 | [facility] | 5.9 | (missing) | (missing) | | (unavailable | 05:35 [facility] | | | + + + +-------+ + + + + | Result panel 149 | + + + + + +-------+ + + | | 2022-08-22 | [facility] | 3.0 | (missing) | (missing) | | (unavailable | 05:35 [facility] | | | + + + +-------+ + + + + | Result panel 150 | + + + + + +-------+ + + | | 2022-08-22 | [facility] | 2.9 | (missing) | (missing) | | (unavailable | 05:35 [facility] | | | + + + +-------+ + + + + | Result panel 151 | + + + + + +--------+ + + | | 2022-08-22 | [facility] | 1.03 | (missing) | (missing) | | (unavailable | 05:35 [facility] | | | + + + +--------+ + + + + | Result panel 152 | + + + + + +-------+ + + | | 2022-08-22 | [facility] | 0.3 | (missing) | (missing) | | (unavailable | 05:35 [facility] | | | + + + +-------+ + + + + | Result panel 153 | + + + + + +------+ + + | | 2022-08-22 | [facility] | 57 | (missing) | (missing) | | (unavailable | 05:35 [facility] | | | + + + +------+ + + + + | Result panel 154 | + + + + + +-------+ + + | | 2022-08-22 | [facility] | 113 | (missing) | (missing) | | (unavailable | 05:35 [facility] | | | + + + +-------+ + + + + | Result panel 155 | + + + + + +-------+ + + | | 2022-08-22 | [facility] | 105 | (missing) | (missing) | | (unavailable | 05:35 [facility] | | | + + + +-------+ + + + + | Result panel 156 | + + + + + +-------+ + + | | 2023-01-08 | [facility] | 7.1 | (missing) | (missing) | | (unavailable | 18:44:08 [facility] | | | + + + +-------+ + + + + | Result panel 157 | + + + + + +--------+ + + | | 2023-01-08 | [facility] | 4.41 | (missing) | (missing) | | (unavailable | 18:44:08 [facility] | | | + + + +--------+ + + + + | Result panel 158 | + + + + + +--------+ + + | | 2023-01-08 | [facility] | 13.5 | (missing) | (missing) | | (unavailable | 18:44:08 [facility] | | | + + + +--------+ + + + + | Result panel 159 | + + + + + +--------+ + + | | 2023-01-08 | [facility] | 41.1 | (missing) | (missing) | | (unavailable | 18:44:08 [facility] | | | + + + +--------+ + + + + | Result panel 160 | + + + + + +--------+ + + | | 2023-01-08 | [facility] | 93.2 | (missing) | (missing) | | (unavailable | 18:44:08 [facility] | | | + + + +--------+ + + + + | Result panel 161 | + + + + + +--------+ + + | | 2023-01-08 | [facility] | 30.5 | (missing) | (missing) | | (unavailable | 18:44:08 [facility] | | | + + + +--------+ + + + + | Result panel 162 | + + + + + +--------+ + + | | 2023-01-08 | [facility] | 32.8 | (missing) | (missing) | | (unavailable | 18:44:08 [facility] | | | + + + +--------+ + + + + | Result panel 163 | + + + + + +--------+ + + | | 2023-01-08 | [facility] | 13.9 | (missing) | (missing) | | (unavailable | 18:44:08 [facility] | | | + + + +--------+ + + + + | Result panel 164 | + + + + + +-------+ + + | | 2023-01-08 | [facility] | 169 | (missing) | (missing) | | (unavailable | 18:44:08 [facility] | | | + + + +-------+ + + + + | Result panel 165 | + + + + + +--------+ + + | | 2023-01-08 | [facility] | 63.7 | (missing) | (missing) | | (unavailable | 18:44:08 [facility] | | | + + + +--------+ + + + + | Result panel 166 | + + + + + +--------+ + + | | 2023-01-08 | [facility] | 24.1 | (missing) | (missing) | | (unavailable | 18:44:08 [facility] | | | + + + +--------+ + + + + | Result panel 167 | + + + + + +-------+ + + | | 2023-01-08 | [facility] | 9.6 | (missing) | (missing) | | (unavailable | 18:44:08 [facility] | | | + + + +-------+ + + + + | Result panel 168 | + + + + + +-------+ + + | | 2023-01-08 | [facility] | 2.0 | (missing) | (missing) | | (unavailable | 18:44:08 [facility] | | | + + + +-------+ + + + + | Result panel 169 | + + + + + +-------+ + + | | 2023-01-08 | [facility] | 0.6 | (missing) | (missing) | | (unavailable | 18:44:08 [facility] | | | + + + +-------+ + + + + | Result panel 170 | + + + + + +--------+ + + | | 2023-01-08 | [facility] | 14.6 | (missing) | (missing) | | (unavailable | 18:44:08 [facility] | | | + + + +--------+ + + + + | Result panel 171 | + + + + + +--------+ + + | | 2023-01-08 | [facility] | 1.19 | (missing) | (missing) | | (unavailable | 18:44:08 [facility] | | | + + + +--------+ + + + + | Result panel 172 | + + + + + +--------+ + + | | 2023-01-08 | [facility] | 29.9 | (missing) | (missing) | | (unavailable | 18:44:08 [facility] | | | + + + +--------+ + + + + | Result panel 173 | + + + + + +-------+---------+ + | | 2023-01-08 | [facility] | 126 | mg/dL | (missing) | | (unavailable | 18:44:08 [facility] | | | + + + +-------+---------+ + + + | Result panel 174 | + + + + + +------+---------+ + | | 2023-01-08 | [facility] | 27 | mg/dL | (missing) | | (unavailable | 18:44:08 [facility] | | | + + + +------+---------+ + + + | Result panel 175 | + + + + + +--------+---------+ + | | 2023-01-08 | [facility] | 1.46 | mg/dL | (missing) | | (unavailable | 18:44:08 [facility] | | | + + + +--------+---------+ + + + | Result panel 176 | + + + + + +------+ + + | | 2023-01-08 | [facility] | 35 | (missing) | (missing) | | (unavailable | 18:44:08 [facility] | | | + + + +------+ + + + + | Result panel 177 | + + + + + +---------+ + + | | 2023-01-08 | [facility] | 18.49 | (missing) | (missing) | | (unavailable | 18:44:08 [facility] | | | + + + +---------+ + + + + | Result panel 178 | + + + + + +-------+ + + | | 2023-01-08 | [facility] | 137 | (missing) | (missing) | | (unavailable | 18:44:08 [facility] | | | + + + +-------+ + + + + | Result panel 179 | + + + + + +-------+ + + | | 2023-01-08 | [facility] | 4.6 | (missing) | (missing) | | (unavailable | 18:44:08 [facility] | | | + + + +-------+ + + + + | Result panel 180 | + + + + + +-------+ + + | | 2023-01-08 | [facility] | 101 | (missing) | (missing) | | (unavailable | 18:44:08 [facility] | | | + + + +-------+ + + + + | Result panel 181 | + + + + + +------+ + + | | 2023-01-08 | [facility] | 31 | (missing) | (missing) | | (unavailable | 18:44:08 [facility] | | | + + + +------+ + + + + | Result panel 182 | + + + + + +-------+ + + | | 2023-01-08 | [facility] | 9.6 | (missing) | (missing) | | (unavailable | 18:44:08 [facility] | | | + + + +-------+ + + + + | Result panel 183 | + + + + + +-------+---------+ + | | 2023-01-08 | [facility] | 9.4 | mg/dL | (missing) | | (unavailable | 18:44:08 [facility] | | | + + + +-------+---------+ + + + | Result panel 184 | + + + + + +-------+ + + | | 2023-01-08 | [facility] | 7.6 | (missing) | (missing) | | (unavailable | 18:44:08 [facility] | | | + + + +-------+ + + + + | Result panel 185 | + + + + + +-------+ + + | | 2023-01-08 | [facility] | 4.0 | (missing) | (missing) | | (unavailable | 18:44:08 [facility] | | | + + + +-------+ + + + + | Result panel 186 | + + + + + +-------+ + + | | 2023-01-08 | [facility] | 3.6 | (missing) | (missing) | | (unavailable | 18:44:08 [facility] | | | + + + +-------+ + + + + | Result panel 187 | + + + + + +--------+ + + | | 2023-01-08 | [facility] | 1.11 | (missing) | (missing) | | (unavailable | 18:44:08 [facility] | | | + + + +--------+ + + + + | Result panel 188 | + + + + + +-------+ + + | | 2023-01-08 | [facility] | 0.4 | (missing) | (missing) | | (unavailable | 18:44:08 [facility] | | | + + + +-------+ + + + + | Result panel 189 | + + + + + +------+ + + | | 2023-01-08 | [facility] | 19 | (missing) | (missing) | | (unavailable | 18:44:08 [facility] | | | + + + +------+ + + + + | Result panel 190 | + + + + + +------+ + + | | 2023-01-08 | [facility] | 26 | (missing) | (missing) | | (unavailable | 18:44:08 [facility] | | | + + + +------+ + + + + | Result panel 191 | + + + + + +------+ + + | | 2023-01-08 | [facility] | 77 | (missing) | (missing) | | (unavailable | 18:44:08 [facility] | | | + + + +------+ + + + + | Result panel 192 | + + + + + +-------+ + + | | 2023-01-08 | [facility] | 7.6 | (missing) | (missing) | | (unavailable | 18:44:08 [facility] | | | + + + +-------+ + + + + | Result panel 193 | + + + + + +------+ + + | | 2023-01-08 | [facility] | <3 | (missing) | (missing) | | (unavailable | 18:44:08 [facility] | | | + + + +------+ + + + + | Result panel 194 | + + + + + + + + + | | 2023-01-08 | [facility] | NEGATIVE | (missing) | (missing) | | (unavailable | 20:23:08 [facility] | | | + + + + + + + + + | Result panel 195 | + + + + + + + + + | | 2023-01-08 | [facility] | NEGATIVE | (missing) | (missing) | | (unavailable | 20:23:08 [facility] | | | + + + + + + + + + | Result panel 196 | + + + + + + + + + | | 2023-01-08 | [facility] | NEGATIVE | (missing) | (missing) | | (unavailable | 20:23:08 [facility] | | | + + + + + + + + + | Result panel 197 | + + + + + + + + + | | 2023-01-08 | [facility] | NEGATIVE | (missing) | (missing) | | (unavailable | 20:23:08 [facility] | | | + + + + + + + + + | Result panel 198 | + + + + + + + + + | | 2023-01-08 | [facility] | YELLOW | (missing) | (missing) | | (unavailable | 20:41:08 [facility] | | | + + + + + + + + + | Result panel 199 | + + + + + +---------+ + + | | 2023-01-08 | [facility] | CLEAR | (missing) | (missing) | | (unavailable | 20:41:08 [facility] | | | + + + +---------+ + + + + | Result panel 200 | + + + + + + + + + | | 2023-01-08 | [facility] | NEGATIVE | (missing) | (missing) | | (unavailable | 20:41:08 [facility] | | | + + + + + + + + + | Result panel 201 | + + + + + + + + + | | 2023-01-08 | [facility] | NEGATIVE | (missing) | (missing) | | (unavailable | 20:41:08 [facility] | | | + + + + + + + + + | Result panel 202 | + + + + + + + + + | | 2023-01-08 | [facility] | NEGATIVE | (missing) | (missing) | | (unavailable | 20:41:08 [facility] | | | | + + + + + + + + + | Result panel 203 | + + + + + +---------+ + + | | 2023-01-08 | [facility] | 1.010 | (missing) | (missing) | | (unavailable | 20:41:08 [facility] | | | | + + + +---------+ + + + + | Result panel 204 | + + + + + + + + + | | 2023-01-08 | [facility] | NEGATIVE | (missing) | (missing) | | (unavailable | 20:41:08 [facility] | | | | + + + + + + + + + | Result panel 205 | + + + + + +-------+ + + | | 2023-01-08 | [facility] | 5.5 | (missing) | (missing) | | (unavailable | 20:41:08 [facility] | | | | + + + +-------+ + + + + | Result panel 206 | + + + + + + + + + | | 2023-01-08 | [facility] | NEGATIVE | (missing) | (missing) | | (unavailable | [facility]41:08 [facility] | | | | + + + + + + + + + | Result panel 207 | + + + + + + + + + | | 2023-01-08 | [facility] | NORMAL | (missing) | (missing) | | (unavailable | 20:41:08 [facility] | | | | + + + + + + + + + | Result panel 208 | + + + + + + + + + | | 2023-01-08 | [facility] | NEGATIVE | (missing) | (missing) | | (unavailable | [facility]41:08 [facility] | | | | + + + + + + + + + | Result panel 209 | + + + + + +---------+ + + | | 2023-01-08 | [facility] | SMALL | (missing) | (missing) | | (unavailable | 20:41:08 [facility] | | | | + + + +---------+ + + + + | Result panel 210 | + + + + + +-------+ + + | | 2023-01-08 | [facility] | 2-3 | (missing) | (missing) | | (unavailable | [facility]41:08 [facility] | | | | + + + +-------+ + + + + | Result panel 211 | + + + + + +---------+ + + | | 2023-01-08 | [facility] | 12-20 | (missing) | (missing) | | (unavailable | 20:41:08 [facility] | | | | + + + +---------+ + + + + | Result panel 212 | + + + + + + + + + | | 2023-01-08 | [facility] | SQUAMOUS 1+ | (missing) | (missing) | | (unavailable | 20:41:08 [facility] | | | | + + + + + + + + + | Result panel 213 | + + + + + + + + + | | 2023-01-08 | [facility] | NONE SEEN | (missing) | (missing) | | (unavailable | 20:41:08 [facility] | | | | + + + + + + + + + | Result panel 214 | + + + + + +------+ + + | | 2023-01-08 | [facility] | 2+ | (missing) | (missing) | | (unavailable | 20:41:08 [facility] | | | | + + + +------+ + + + + | Result panel 215 | + + + + + + + + + | | 2023-01-08 | [facility] | NONE SEEN | (missing) | (missing) | | (unavailable | 20:41:08 [facility] | | | | + + + + + + + + + | Result panel 216 | + + + + + +-------+ + + | | 2023-01-08 | [facility] | Yes | (missing) | (missing) | | (unavailable | 20:41:08 [facility] | | | | + + + +-------+ + + + + | Result panel 217 | + + + + + + + + + | | 2023-01-08 | [facility] | CLEAN CATCH | (missing) | (missing) | | (unavailable | 20:41:08 [facility] | | | | + + + + + + + + + | Result panel 218 | + + + + + + + + + | | 2023-01-08 | [facility] | NEGATIVE | (missing) | (missing) | | (unavailable | 20:41:08 [facility] | | | | + + + + + + + + + | Result panel 219 | + + + + + + + + + | | 2023-01-08 | [facility] | NEGATIVE | (missing) | (missing) | | (unavailable | 20:41:08 | [facility] | | | | + + + + + + + + + | Result panel 220 | + + + + + + + + + | | 2023-01-08 | [facility] | NEGATIVE | (missing) | (missing) | | (unavailable | 20:41:08 | [facility] | | | | + + + + + + + + + | Result panel 221 | + + + + + + + + + | | 2023-01-08 | [facility] | NEGATIVE | (missing) | (missing) | | (unavailable | 20:41:08 [facility] | | | + + + + + + + + + | Result panel 222 | + + + + + + + + + | | 2023-01-08 | [facility] | NEGATIVE | (missing) | (missing) | | (unavailable | 20:41:08 | [facility] | | | + + + + + + + + + | Result panel 223 | + + + + + + + + + | | 2023-01-08 | [facility] | NEGATIVE | (missing) | (missing) | | (unavailable | 20:41:08 [facility] | | | + + + + + + + + + | Result panel 224 | + + + + + + + + + | | 2023-01-08 | [facility] | NEGATIVE | (missing) | (missing) | | (unavailable | 20:41:08 [facility] | | | + + + + + + + + + | Result panel 225 | + + + + + + + + + | | 2023-01-08 | [facility] | NEGATIVE | (missing) | (missing) | | (unavailable | 20:41:08 [facility] | | | + + + + + + + + + | Result panel 226 | + + + + + + + + + | | 2023-01-08 | [facility] | NEGATIVE | (missing) | (missing) | | (unavailable | 20:41:08 [facility] | | | + + + + + + + + + | Result panel 227 | + + + + + + + + + | | 2023-01-08 | [facility] | NEGATIVE | (missing) | (missing) | | (unavailable | 20:41:08 [facility] | | | + + + + + + + + + | Result panel 228 | + + + + + + + + + | | 2023-01-08 | [facility] | NEGATIVE | (missing) | (missing) | | (unavailable | 20:41:08 [facility] | | | + + + + + + + + + | Result panel 229 | + + + + + + + + + | | 2023-01-08 | [facility] | NEGATIVE | (missing) | (missing) | | (unavailable | 20:41:08 [facility] | | | + + + + + + + + + | Result panel 230 | + + + + + + + + + | | 2023-01-08 | [facility] | NEGATIVE | (missing) | (missing) | | (unavailable | 20:41:08 [facility] | | | + + + + + + + + + | Result panel 231 | + + + + + + + + + | | 2023-01-09 | [facility] | NEGATIVE | (missing) | (missing) | | (unavailable | 14:20:08 | [facility] | | | + + + + + + + + + | Result panel 232 | + + + + + + + + + | | 2023-03-06 | [facility] | YELLOW | (missing) | (missing) | | (unavailable | 17:48:07 | [facility] | | | + + + + + + + + + | Result panel 233 | + + + + + +---------+ + + | | 2023-03-06 | [facility] | CLEAR | (missing) | (missing) | | (unavailable | 17:48:07 [facility] | | | + + + +---------+ + + + + | Result panel 234 | + + + + + + + + + | | 2023-03-06 | [facility] | NEGATIVE | (missing) | (missing) | | (unavailable | 17:48:07 [facility] | | | + + + + + + + + + | Result panel 235 | + + + + + + + + + | | 2023-03-06 | [facility] | NEGATIVE | (missing) | (missing) | | (unavailable | 17:48:07 | [facility] | | | + + + + + + + + + | Result panel 236 | + + + + + + + + + | | 2023-03-06 | [facility] | NEGATIVE | (missing) | (missing) | | (unavailable | 17:48:07 [facility] | | | + + + + + + + + + | Result panel 237 | + + + + + +---------+ + + | | 2023-03-06 | [facility] | 1.010 | (missing) | (missing) | | (unavailable | 17:48:07 [facility] | | | + + + +---------+ + + + + | Result panel 238 | + + + + + + + + + | | 2023-03-06 | [facility] | NEGATIVE | (missing) | (missing) | | (unavailable | 17:48:07 [facility] | | | + + + + + + + + + | Result panel 239 | + + + + + +-------+ + + | | 2023-03-06 | [facility] | 6.5 | (missing) | (missing) | | (unavailable | 17:48:07 [facility] | | | + + + +-------+ + + + + | Result panel 240 | + + + + + + + + + | | 2023-03-06 | [facility] | NEGATIVE | (missing) | (missing) | | (unavailable | 17:48:07 [facility] | | | + + + + + + + + + | Result panel 241 | + + + + + + + + + | | 2023-03-06 | [facility] | NORMAL | (missing) | (missing) | | (unavailable | 17:48:07 [facility] | | | + + + + + + + + + | Result panel 242 | + + + + + + + + + | | 2023-03-06 | [facility] | POSITIVE | (missing) | (missing) | | (unavailable | 17:48:07 [facility] | | | + + + + + + + + + | Result panel 243 | + + + + + + + + + | | 2023-03-06 | [facility] | MODERATE | (missing) | (missing) | | (unavailable | 17:48:07 [facility] | | | + + + + + + + + + | Result panel 244 | + + + + + +-------+ + + | | 2023-03-06 | [facility] | 0-1 | (missing) | (missing) | | (unavailable | 17:48:07 [facility] | | | + + + +-------+ + + + + | Result panel 245 | + + + + + +---------+ + + | | 2023-03-06 | [facility] | 21-40 | (missing) | (missing) | | (unavailable | 17:48:07 | [facility] | | | | + + + +---------+ + + + + | Result panel 246 | + + + + + + + + + | | 2023-03-06 | [facility] | SQUAMOUS 1+ | (missing) | (missing) | | (unavailable | 17:48:07 [facility] | | | + + + + + + + + + | Result panel 247 | + + + + + + + + + | | 2023-03-06 | [facility] | NONE SEEN | (missing) | (missing) | | (unavailable | 17:48:07 [facility] | | | + + + + + + + + + | Result panel 248 | + + + + + +------+ + + | | 2023-03-06 | [facility] | 2+ | (missing) | (missing) | | (unavailable | 17:48:07 [facility] | | | + + + +------+ + + + + | Result panel 249 | + + + + + + + + + | | 2023-03-06 | [facility] | NONE SEEN | (missing) | (missing) | | (unavailable | 17:48:07 [facility] | | | + + + + + + + + + | Result panel 250 | + + + + + +-------+ + + | | 2023-03-06 | [facility] | Yes | (missing) | (missing) | | (unavailable | 17:48:07 [facility] | | | + + + +-------+ + + + + | Result panel 251 | + + + + + + + + + | | 2023-03-06 | [facility] | CLEAN CATCH | (missing) | (missing) | | (unavailable | 17:48:07 [facility] | | | + + + + + + + + + | Result panel 252 | + + + + + + + + + | | 2023-03-06 | [facility] | YELLOW | (missing) | (missing) | | (unavailable | 17:48:07 [facility] | | | + + + + + + + + + | Result panel 253 | + + + + + +---------+ + + | | 2023-03-06 | [facility] | CLEAR | (missing) | (missing) | | (unavailable | 17:48:07 [facility] | | | + + + +---------+ + + + + | Result panel 254 | + + + + + + + + + | | 2023-03-06 | [facility] | NEGATIVE | (missing) | (missing) | | (unavailable | 17:48:07 [facility] | | | + + + + + + + + + | Result panel 255 | + + + + + + + + + | | 2023-03-06 | [facility] | NEGATIVE | (missing) | (missing) | | (unavailable | 17:48:07 [facility] | | | + + + + + + + + + | Result panel 256 | + + + + + + + + + | | 2023-03-06 | [facility] | NEGATIVE | (missing) | (missing) | | (unavailable | 17:48:07 [facility] | | | + + + + + + + + + | Result panel 257 | + + + + + +---------+ + + | | 2023-03-06 | [facility] | 1.010 | (missing) | (missing) | | (unavailable | 17:48:07 [facility] | | | + + + +---------+ + + + + | Result panel 258 | + + + + + + + + + | | 2023-03-06 | [facility] | NEGATIVE | (missing) | (missing) | | (unavailable | 17:48:07 [facility] | | | + + + + + + + + + | Result panel 259 | + + + + + +-------+ + + | | 2023-03-06 | [facility] | 6.5 | (missing) | (missing) | | (unavailable | 17:48:07 [facility] | | | + + + +-------+ + + + + | Result panel 260 | + + + + + + + + + | | 2023-03-06 | [facility] | NEGATIVE | (missing) | (missing) | | (unavailable | 17:48:07 [facility] | | | + + + + + + + + + | Result panel 261 | + + + + + + + + + | | 2023-03-06 | [facility] | NORMAL | (missing) | (missing) | | (unavailable | 17:48:07 [facility] | | | + + + + + + + + + | Result panel 262 | + + + + + + + + + | | 2023-03-06 | [facility] | POSITIVE | (missing) | (missing) | | (unavailable | 17:48:07 [facility] | | | + + + + + + + + + | Result panel 263 | + + + + + + + + + | | 2023-03-06 | [facility] | MODERATE | (missing) | (missing) | | (unavailable | 17:48:07 [facility] | | | + + + + + + + + + | Result panel 264 | + + + + + +-------+ + + | | 2023-03-06 | [facility] | 0-1 | (missing) | (missing) | | (unavailable | 17:48:07 [facility] | | | + + + +-------+ + + + + | Result panel 265 | + + + + + +---------+ + + | | 2023-03-06 | [facility] | 21-40 | (missing) | (missing) | | (unavailable | 17:48:07 [facility] | | | + + + +---------+ + + + + | Result panel 266 | + + + + + + + + + | | 2023-03-06 | [facility] | SQUAMOUS 1+ | (missing) | (missing) | | (unavailable | 17:48:07 | [facility] | | | + + + + + + + + + | Result panel 267 | + + + + + + + + + | | 2023-03-06 | [facility] | NONE SEEN | (missing) | (missing) | | (unavailable | 17:48:07 [facility] | | | + + + + + + + + + | Result panel 268 | + + + + + +------+ + + | | 2023-03-06 | [facility] | 2+ | (missing) | (missing) | | (unavailable | 17:48:07 [facility] | | | + + + +------+ + + + + | Result panel 269 | + + + + + + + + + | | 2023-03-06 | [facility] | NONE SEEN | (missing) | (missing) | | (unavailable | 17:48:07 [facility] | | | + + + + + + + + + | Result panel 270 | + + + + + +-------+ + + | | 2023-03-06 | [facility] | Yes | (missing) | (missing) | | (unavailable | 17:48:07 [facility] | | | + + + +-------+ + + + + | Result panel 271 | + + + + + + + + + | | 2023-03-06 | [facility] | CLEAN CATCH | (missing) | (missing) | | (unavailable | 17:48:07 [facility] | | | + + + + + + + + + | Result panel 272 | + + + + + + + + + | | 2023-03-06 | [facility] | NEGATIVE | (missing) | (missing) | | (unavailable | 17:50:07 [facility] | | | + + + + + + + + + | Result panel 273 | + + + + + + + + + | | 2023-03-06 | [facility] | NEGATIVE | (missing) | (missing) | | (unavailable | 17:50:07 [facility] | | | + + + + + + + + + | Result panel 274 | + + + + + + + + + | | 2023-03-06 | [facility] | NEGATIVE | (missing) | (missing) | | (unavailable | 17:50:07 [facility] | | | + + + + + + + + + | Result panel 275 | + + + + + + + + + | | 2023-03-06 | [facility] | NEGATIVE | (missing) | (missing) | | (unavailable | 17:50:07 [facility] | | | + + + + + + + + + | Result panel 276 | + + + + + + + + + | | 2023-03-06 | [facility] | NEGATIVE | (missing) | (missing) | | (unavailable | 17:50:07 [facility] | | | + + + + + + + + + | Result panel 277 | + + + + + + + + + | | 2023-03-06 | [facility] | NEGATIVE | (missing) | (missing) | | (unavailable | 17:50:07 [facility] | | | + + + + + + + + + | Result panel 278 | + + + + + + + + + | | 2023-03-06 | [facility] | NEGATIVE | (missing) | (missing) | | (unavailable | 17:50:07 [facility] | | | + + + + + + + + + | Result panel 279 | + + + + + + + + + | | 2023-03-06 | [facility] | NEGATIVE | (missing) | (missing) | | (unavailable | 17:50:07 [facility] | | | + + + + + + + + + | Result panel 280 | + + + + + +-------+ + + | | 2023-03-07 | [facility] | 5.8 | (missing) | (missing) | | (unavailable | 06:30:07 [facility] | | | + + + +-------+ + + + + | Result panel 281 | + + + + + +--------+ + + | | 2023-03-07 | [facility] | 4.48 | (missing) | (missing) | | (unavailable | 06:30:07 [facility] | | | + + + +--------+ + + + + | Result panel 282 | + + + + + +--------+ + + | | 2023-03-07 | [facility] | 13.5 | (missing) | (missing) | | (unavailable | 06:30:07 [facility] | | | + + + +--------+ + + + + | Result panel 283 | + + + + + +--------+ + + | | 2023-03-07 | [facility] | 40.8 | (missing) | (missing) | | (unavailable | 06:30:07 [facility] | | | + + + +--------+ + + + + | Result panel 284 | + + + + + +--------+ + + | | 2023-03-07 | [facility] | 91.2 | (missing) | (missing) | | (unavailable | 06:30:07 [facility] | | | + + + +--------+ + + + + | Result panel 285 | + + + + + +--------+ + + | | 2023-03-07 | [facility] | 30.2 | (missing) | (missing) | | (unavailable | 06:30:07 [facility] | | | + + + +--------+ + + + + | Result panel 286 | + + + + + +--------+ + + | | 2023-03-07 | [facility] | 33.1 | (missing) | (missing) | | (unavailable | 06:30:07 [facility] | | | + + + +--------+ + + + + | Result panel 287 | + + + + + +--------+ + + | | 2023-03-07 | [facility] | 14.7 | (missing) | (missing) | | (unavailable | 06:30:07 [facility] | | | + + + +--------+ + + + + | Result panel 288 | + + + + + +-------+ + + | | 2023-03-07 | [facility] | 151 | (missing) | (missing) | | (unavailable | 06:30:07 [facility] | | | + + + +-------+ + + + + | Result panel 289 | + + + + + +------+ + + | | 2023-03-07 | [facility] | 54 | (missing) | (missing) | | (unavailable | 06:30:07 [facility] | | | + + + +------+ + + + + | Result panel 290 | + + + + + +------+ + + | | 2023-03-07 | [facility] | 34 | (missing) | (missing) | | (unavailable | 06:30:07 [facility] | | | + + + +------+ + + + + | Result panel 291 | + + + + + +------+ + + | | 2023-03-07 | [facility] | 10 | (missing) | (missing) | | (unavailable | 06:30:07 [facility] | | | + + + +------+ + + + + | Result panel 292 | + + + + + +-----+ + + | | 2023-03-07 | [facility] | 2 | (missing) | (missing) | | (unavailable | 06:30:07 [facility] | | | + + + +-----+ + + + + | Result panel 293 | + + + + + +-------+---------+ + | | 2023-03-07 | [facility] | 110 | mg/dL | (missing) | | (unavailable | 06:30:07 [facility] | | | + + + +-------+---------+ + + + | Result panel 294 | + + + + + +------+---------+ + | | 2023-03-07 | [facility] | 22 | mg/dL | (missing) | | (unavailable | 06:30:07 [facility] | | | + + + +------+---------+ + + + | Result panel 295 | + + + + + +--------+---------+ + | | 2023-03-07 | [facility] | 1.40 | mg/dL | (missing) | | (unavailable | 06:30:07 [facility] | | | + + + +--------+---------+ + + + | Result panel 296 | + + + + + +------+ + + | | 2023-03-07 | [facility] | 37 | (missing) | (missing) | | (unavailable | 06:30:07 [facility] | | | + + + +------+ + + + + | Result panel 297 | + + + + + +---------+ + + | | 2023-03-07 | [facility] | 15.71 | (missing) | (missing) | | (unavailable | 06:30:07 [facility] | | | + + + +---------+ + + + + | Result panel 298 | + + + + + +-------+ + + | | 2023-03-07 | [facility] | 137 | (missing) | (missing) | | (unavailable | 06:30:07 [facility] | | | + + + +-------+ + + + + | Result panel 299 | + + + + + +-------+ + + | | 2023-03-07 | [facility] | 4.4 | (missing) | (missing) | | (unavailable | 06:30:07 [facility] | | | + + + +-------+ + + + + | Result panel 300 | + + + + + +-------+ + + | | 2023-03-07 | [facility] | 100 | (missing) | (missing) | | (unavailable | 06:30:07 [facility] | | | + + + +-------+ + + + + | Result panel 301 | + + + + + +------+ + + | | 2023-03-07 | [facility] | 27 | (missing) | (missing) | | (unavailable | 06:30:07 [facility] | | | + + + +------+ + + + + | Result panel 302 | + + + + + +--------+ + + | | 2023-03-07 | [facility] | 14.4 | (missing) | (missing) | | (unavailable | 06:30:07 [facility] | | | + + + +--------+ + + + + | Result panel 303 | + + + + + +-------+---------+ + | | 2023-03-07 | [facility] | 9.1 | mg/dL | (missing) | | (unavailable | 06:30:07 [facility] | | | + + + +-------+---------+ + + + | Result panel 304 | + + + + + +-------+ + + | | 2023-03-07 | [facility] | 7.3 | (missing) | (missing) | | (unavailable | 06:30:07 [facility] | | | + + + +-------+ + + + + | Result panel 305 | + + + + + +-------+ + + | | 2023-03-07 | [facility] | 3.7 | (missing) | (missing) | | (unavailable | 06:30:07 [facility] | | | + + + +-------+ + + + + | Result panel 306 | + + + + + +-------+ + + | | 2023-03-07 | [facility] | 3.6 | (missing) | (missing) | | (unavailable | 06:30:07 [facility] | | | + + + +-------+ + + + + | Result panel 307 | + + + + + +--------+ + + | | 2023-03-07 | [facility] | 1.03 | (missing) | (missing) | | (unavailable | 06:30:07 [facility] | | | + + + +--------+ + + + + | Result panel 308 | + + + + + +-------+ + + | | 2023-03-07 | [facility] | 0.5 | (missing) | (missing) | | (unavailable | 06:30:07 [facility] | | | + + + +-------+ + + + + | Result panel 309 | + + + + + +------+ + + | | 2023-03-07 | [facility] | 22 | (missing) | (missing) | | (unavailable | :30:07 | [facility] | | | | + + + +------+ + + + + | Result panel 310 | + + + + + +------+ + + | | 2023-03-07 | [facility] | 21 | (missing) | (missing) | | (unavailable | 06:30:07 [facility] | | | | + + + +------+ + + + + | Result panel 311 | + + + + + +------+ + + | | 2023-03-07 | [facility] | 78 | (missing) | (missing) | | (unavailable | 06:30:07 [facility] | | | + + + +------+ + + + + | Result panel 312 | + + + + + +-------+ + + | | 2023-06-05 | [facility] | 7.4 | (missing) | (missing) | | (unavailable | 10:11:07 [facility] | | | + + + +-------+ + + + + | Result panel 313 | + + + + + +--------+ + + | | 2023-06-05 | [facility] | 4.47 | (missing) | (missing) | | (unavailable | 10:11:07 [facility] | | | + + + +--------+ + + + + | Result panel 314 | + + + + + +--------+ + + | | 2023-06-05 | [facility] | 13.7 | (missing) | (missing) | | (unavailable | 10:11:07 [facility] | | | + + + +--------+ + + + + | Result panel 315 | + + + + + +--------+ + + | | 2023-06-05 | [facility] | 41.5 | (missing) | (missing) | | (unavailable | 10:11:07 [facility] | | | + + + +--------+ + + + + | Result panel 316 | + + + + + +--------+ + + | | 2023-06-05 | [facility] | 92.9 | (missing) | (missing) | | (unavailable | 10:11: [facility] | | | | + + + +--------+ + + + + | Result panel 317 | + + + + + +--------+ + + | | 2023-06-05 | [facility] | 30.7 | (missing) | (missing) | | (unavailable | 10:11:07 [facility] | | | + + + +--------+ + + + + | Result panel 318 | + + + + + +--------+ + + | | 2023-06-05 | [facility] | 33.0 | (missing) | (missing) | | (unavailable | 10: | [facility] | | | | + + + +--------+ + + + + | Result panel 319 | + + + + + +--------+ + + | | 2023-06-05 | [facility] | 14.8 | (missing) | (missing) | | (unavailable | 10:11:07 [facility] | | | + + + +--------+ + + + + | Result panel 320 | + + + + + +-------+ + + | | 2023-06-05 | [facility] | 184 | (missing) | (missing) | | (unavailable | 10:11:07 [facility] | | | + + + +-------+ + + + + | Result panel 321 | + + + + + +--------+ + + | | 2023-06-05 | [facility] | 64.8 | (missing) | (missing) | | (unavailable | 10:11:07 [facility] | | | + + + +--------+ + + + + | Result panel 322 | + + + + + +--------+ + + | | 2023-06-05 | [facility] | 21.3 | (missing) | (missing) | | (unavailable | 10:11:07 [facility] | | | + + + +--------+ + + + + | Result panel 323 | + + + + + +--------+ + + | | 2023-06-05 | [facility] | 11.5 | (missing) | (missing) | | (unavailable | 10:11:07 [facility] | | | + + + +--------+ + + + + | Result panel 324 | + + + + + +-------+ + + | | 2023-06-05 | [facility] | 1.9 | (missing) | (missing) | | (unavailable | 10:11:07 [facility] | | | + + + +-------+ + + + + | Result panel 325 | + + + + + +-------+ + + | | 2023-06-05 | [facility] | 0.5 | (missing) | (missing) | | (unavailable | 10:11:07 [facility] | | | + + + +-------+ + + + + | Result panel 326 | + + + + + +-------+---------+ + | | 2023-06-05 | [facility] | 112 | mg/dL | (missing) | | (unavailable | 10:07 | [facility] | | | | + + + +-------+---------+ + + + | Result panel 327 | + + + + + +------+---------+ + | | 2023-06-05 | [facility] | 18 | mg/dL | (missing) | | (unavailable | 07 | [facility] | | | | + + + +------+---------+ + + + | Result panel 328 | + + + + + +--------+---------+ + | | 2023-06-05 | [facility] | 1.22 | mg/dL | (missing) | | (unavailable | 10:11:07 [facility] | | | | + + + +--------+---------+ + + + | Result panel 329 | + + + + + +------+ + + | | 2023-06-05 | [facility] | 43 | (missing) | (missing) | | (unavailable | 10:11:07 [facility] | | | | + + + +------+ + + + + | Result panel 330 | + + + + + +---------+ + + | | 2023-06-05 | [facility] | 14.75 | (missing) | (missing) | | (unavailable | 10:11: [facility] | | | | + + + +---------+ + + + + | Result panel 331 | + + + + + +-------+ + + | | 2023-06-05 | [facility] | 137 | (missing) | (missing) | | (unavailable | 10:11:07 [facility] | | | | + + + +-------+ + + + + | Result panel 332 | + + + + + +-------+ + + | | 2023-06-05 | [facility] | 4.4 | (missing) | (missing) | | (unavailable | 10:11:07 [facility] | | | | + + + +-------+ + + + + | Result panel 333 | + + + + + +-------+ + + | | 2023-06-05 | [facility] | 101 | (missing) | (missing) | | (unavailable | 10:11:07 [facility] | | | | + + + +-------+ + + + + | Result panel 334 | + + + + + +------+ + + | | 2023-06-05 | [facility] | 26 | (missing) | (missing) | | (unavailable | 10:11:07 [facility] | | | | + + + +------+ + + + + | Result panel 335 | + + + + + +--------+ + + | | 2023-06-05 | [facility] | 14.4 | (missing) | (missing) | | (unavailable | 10:11:07 [facility] | | | | + + + +--------+ + + + + | Result panel 336 | + + + + + +-------+---------+ + | | 2023-06-05 | [facility] | 9.7 | mg/dL | (missing) | | (unavailable | 10:11:07 [facility] | | | | + + + +-------+---------+ + + + | Result panel 337 | + + + + + + + + + | | 2023-07-04 | [facility] | YELLOW | (missing) | (missing) | | (unavailable | 13:09:07 [facility] | | | | + + + + + + + + + | Result panel 338 | + + + + + +---------+ + + | | 2023-07-04 | [facility] | CLEAR | (missing) | (missing) | | (unavailable | 13:09:07 [facility] | | | | + + + +---------+ + + + + | Result panel 339 | + + + + + + + + + | | 2023-07-04 | [facility] | NEGATIVE | (missing) | (missing) | | (unavailable | 13:09:07 [facility] | | | | + + + + + + + + + | Result panel 340 | + + + + + + + + + | | 2023-07-04 | [facility] | NEGATIVE | (missing) | (missing) | | (unavailable | 13:09:07 [facility] | | | | + + + + + + + + + | Result panel 341 | + + + + + + + + + | | 2023-07-04 | [facility] | NEGATIVE | (missing) | (missing) | | (unavailable | 13:09:07 [facility] | | | | + + + + + + + + + | Result panel 342 | + + + + + +---------+ + + | | 2023-07-04 | [facility] | 1.010 | (missing) | (missing) | | (unavailable | 13::07 | [facility] | | | | + + + +---------+ + + + + | Result panel 343 | + + + + + + + + + | | 2023-07-04 | [facility] | NEGATIVE | (missing) | (missing) | | (unavailable | 13:09:07 [facility] | | | | + + + + + + + + + | Result panel 344 | + + + + + +-------+ + + | | 2023-07-04 | [facility] | 7.0 | (missing) | (missing) | | (unavailable | 13:09:07 [facility] | | | | + + + +-------+ + + + + | Result panel 345 | + + + + + + + + + | | 2023-07-04 | [facility] | NEGATIVE | (missing) | (missing) | | (unavailable | [facility]:09:07 [facility] | | | | + + + + + + + + + | Result panel 346 | + + + + + + + + + | | 2023-07-04 | [facility] | NORMAL | (missing) | (missing) | | (unavailable | 13:09:07 [facility] | | | | + + + + + + + + + | Result panel 347 | + + + + + + + + + | | 2023-07-04 | [facility] | NEGATIVE | (missing) | (missing) | | (unavailable | [facility] | | | | + + + + + + + + + | Result panel 348 | + + + + + + + + + | | 2023-07-04 | [facility] | MODERATE | (missing) | (missing) | | (unavailable | : [facility] | | | | + + + + + + + + + | Result panel 349 | + + + + + +-------+ + + | | 2023-07-04 | [facility] | 0-1 | (missing) | (missing) | | (unavailable | [facility] | | | | + + + +-------+ + + + + | Result panel 350 | + + + + + +-------+ + + | | 2023-07-04 | [facility] | >50 | (missing) | (missing) | | (unavailable | [facility] | | | | + + + +-------+ + + + + | Result panel 351 | + + + + + + + + + | | 2023-07-04 | [facility] | SQUAMOUS 1+ | (missing) | (missing) | | (unavailable | 13::07 | [facility] | | | | + + + + + + + + + | Result panel 352 | + + + + + + + + + | | 2023-07-04 | [facility] | NONE SEEN | (missing) | (missing) | | (unavailable | 13::07 [facility] | | | | + + + + + + + + + | Result panel 353 | + + + + + +--------+ + + | | 2023-07-04 | [facility] | RARE | (missing) | (missing) | | (unavailable | 13:09:07 [facility] | | | | + + + +--------+ + + + + | Result panel 354 | + + + + + + + + + | | 2023-07-04 | [facility] | NONE SEEN | (missing) | (missing) | | (unavailable | 13:09:07 [facility] | | | + + + + + + + + + | Result panel 355 | + + + + + +-------+ + + | | 2023-07-04 | [facility] | Yes | (missing) | (missing) | | (unavailable | 13:09:07 [facility] | | | | + + + +-------+ + + + + | Result panel 356 | + + + + + + + + + | | 2023-07-04 | [facility] | CLEAN CATCH | (missing) | (missing) | | (unavailable | 13:09:07 [facility] | | | | + + + + + + + + + | Result panel 357 | + + + + + +-------+ + + | | 2023-07-04 | [facility] | 7.2 | (missing) | (missing) | | (unavailable | 13::07 [facility] | | | | + + + +-------+ + + + + | Result panel 358 | + + + + + +-------+ + + | | 2023-07-04 | [facility] | 167 | (missing) | (missing) | | (unavailable | 13:25:07 [facility] | | | + + + +-------+ + + + + | Result panel 359 | + + + + + +--------+ + + | | 2023-07-04 | [facility] | 61.0 | (missing) | (missing) | | (unavailable | ::07 | [facility] | | | | + + + +--------+ + + + + | Result panel 360 | + + + + + +--------+ + + | | 2023-07-04 | [facility] | 24.8 | (missing) | (missing) | | (unavailable | ::07 | [facility] | | | | + + + +--------+ + + + + | Result panel 361 | + + + + + +--------+ + + | | 2023-07-04 | [facility] | 10.9 | (missing) | (missing) | | (unavailable | 13:25:07 [facility] | | | + + + +--------+ + + + + | Result panel 362 | + + + + + +-------+ + + | | 2023-07-04 | [facility] | 2.9 | (missing) | (missing) | | (unavailable | 13:25:07 [facility] | | | + + + +-------+ + + + + | Result panel 363 | + + + + + +-------+ + + | | 2023-07-04 | [facility] | 0.4 | (missing) | (missing) | | (unavailable | 13:25:07 [facility] | | | + + + +-------+ + + + + | Result panel 364 | + + + + + + + + + | | 2023-07-04 | [facility] | SEE COMMENT | (missing) | (missing) | | (unavailable | 13:25:07 [facility] | | | + + + + + + + + + | Result panel 365 | + + + + + +--------+ + + | | 2023-07-04 | [facility] | 4.14 | (missing) | (missing) | | (unavailable | 13:25:07 [facility] | | | + + + +--------+ + + + + | Result panel 366 | + + + + + +-------+---------+ + | | 2023-07-04 | [facility] | 101 | mg/dL | (missing) | | (unavailable | 13:25:07 [facility] | | | + + + +-------+---------+ + + + | Result panel 367 | + + + + + +------+---------+ + | | 2023-07-04 | [facility] | 18 | mg/dL | (missing) | | (unavailable | ::07 | [facility] | | | | + + + +------+---------+ + + + | Result panel 368 | + + + + + +--------+---------+ + | | 2023-07-04 | [facility] | 0.98 | mg/dL | (missing) | | (unavailable | 13:25:07 [facility] | | | + + + +--------+---------+ + + + | Result panel 369 | + + + + + +------+ + + | | 2023-07-04 | [facility] | 57 | (missing) | (missing) | | (unavailable | 13:25:07 [facility] | | | + + + +------+ + + + + | Result panel 370 | + + + + + +--------+ + + | | 2023-07-04 | [facility] | 12.7 | (missing) | (missing) | | (unavailable | 13:25:07 [facility] | | | + + + +--------+ + + + + | Result panel 371 | + + + + + +---------+ + + | | 2023-07-04 | [facility] | 18.36 | (missing) | (missing) | | (unavailable | 13:25:07 [facility] | | | + + + +---------+ + + + + | Result panel 372 | + + + + + +-------+ + + | | 2023-07-04 | [facility] | 137 | (missing) | (missing) | | (unavailable | 13:25:07 [facility] | | | + + + +-------+ + + + + | Result panel 373 | + + + + + +-------+ + + | | 2023-07-04 | [facility] | 4.2 | (missing) | (missing) | | (unavailable | 13:25:07 [facility] | | | + + + +-------+ + + + + | Result panel 374 | + + + + + +-------+ + + | | 2023-07-04 | [facility] | 103 | (missing) | (missing) | | (unavailable | 13:25:07 [facility] | | | + + + +-------+ + + + + | Result panel 375 | + + + + + +------+ + + | | 2023-07-04 | [facility] | 26 | (missing) | (missing) | | (unavailable | 13:25:07 [facility] | | | + + + +------+ + + + + | Result panel 376 | + + + + + +--------+ + + | | 2023-07-04 | [facility] | 12.2 | (missing) | (missing) | | (unavailable | ::07 [facility] | | | + + + +--------+ + + + + | Result panel 377 | + + + + + +-------+---------+ + | | 2023-07-04 | [facility] | 8.7 | mg/dL | (missing) | | (unavailable | ::07 [facility] | | | | + + + +-------+---------+ + + + | Result panel 378 | + + + + + +-------+ + + | | 2023-07-04 | [facility] | 6.4 | (missing) | (missing) | | (unavailable | ::07 [facility] | | | + + + +-------+ + + + + | Result panel 379 | + + + + + +-------+ + + | | 2023-07-04 | [facility] | 3.2 | (missing) | (missing) | | (unavailable | 13::07 [facility] | | | + + + +-------+ + + + + | Result panel 380 | + + + + + +-------+ + + | | 2023-07-04 | [facility] | 3.2 | (missing) | (missing) | | (unavailable | 13::07 [facility] | | | + + + +-------+ + + + + | Result panel 381 | + + + + + +--------+ + + | | 2023-07-04 | [facility] | 38.5 | (missing) | (missing) | | (unavailable | 13::07 [facility] | | | + + + +--------+ + + + + | Result panel 382 | + + + + + +--------+ + + | | 2023-07-04 | [facility] | 1.00 | (missing) | (missing) | | (unavailable | 13:25:07 [facility] | | | + + + +--------+ + + + + | Result panel 383 | + + + + + +-------+ + + | | 2023-07-04 | [facility] | 0.4 | (missing) | (missing) | | (unavailable | 13:25:07 [facility] | | | + + + +-------+ + + + + | Result panel 384 | + + + + + +------+ + + | | 2023-07-04 | [facility] | 20 | (missing) | (missing) | | (unavailable | 13:25:07 [facility] | | | + + + +------+ + + + + | Result panel 385 | + + + + + +------+ + + | | 2023-07-04 | [facility] | 25 | (missing) | (missing) | | (unavailable | 13:25:07 [facility] | | | + + + +------+ + + + + | Result panel 386 | + + + + + +------+ + + | | 2023-07-04 | [facility] | 74 | (missing) | (missing) | | (unavailable | 13:25:07 [facility] | | | + + + +------+ + + + + | Result panel 387 | + + + + + +--------+ + + | | 2023-07-04 | [facility] | 93.1 | (missing) | (missing) | | (unavailable | 13::07 [facility] | | | + + + +--------+ + + + + | Result panel 388 | + + + + + +--------+ + + | | 2023-07-04 | [facility] | 30.6 | (missing) | (missing) | | (unavailable | 13::07 [facility] | | | + + + +--------+ + + + + | Result panel 389 | + + + + + +--------+ + + | | 2023-07-04 | [facility] | 32.8 | (missing) | (missing) | | (unavailable | 13::07 [facility] | | | + + + +--------+ + + + + | Result panel 390 | + + + + + +--------+ + + | | 2023-07-04 | [facility] | 14.2 | (missing) | (missing) | | (unavailable | ::07 [facility] | | | | + + + +--------+ + + Social History No information. Vital Signs + + + +---------+ | date | measurement | value | units | + + + +---------+ | 2022-03-31 00:00 | BMI | 36.3 | kg/m2 | + + + +---------+ | 2022-03-31 00:00 | BP_diastolic | 84 | mmHg | + + + +---------+ | 2022-03-31 00:00 | BP_systolic | 170 | mmHg | + + + +---------+ | 2022-03-31 00:00 | heart_rate | 78 | /min | + + + +---------+ | 2022-03-31 00:00 | height_metric | 157.48 | cm | + + + +---------+ | 2022-03-31 00:00 | height_standard | 62 | in | + + + +---------+ | 2022-03-31 00:00 | o2_saturation | 98 | % | + + + +---------+ | 2022-03-31 00:00 | respiration_rate | 15 | /min | + + + +---------+ | 2022-03-31 00:00 | temperature_metric | 36.89 | C | | | | | | + + + +---------+ | 2022-03-31 00:00 | | 98.4 | F | | | temperature_standar | | | | | d | | | + + + +---------+ | 2022-03-31 00:00 | weight_metric | 89.9 | kg | + + + +---------+ | 2022-03-31 00:00 | weight_standard | 198.19 | lb | + + + +---------+ | 2022-03-31 00:00 | weight_standard | 198.2 | lb | + + + +---------+ | 2022-05-11 00:00 | BMI | 38.4 | kg/m2 | + + + +---------+ | 2022-05-11 00:00 | BP_diastolic | 56 | mmHg | + + + +---------+ | 2022-05-11 00:00 | BP_systolic | 131 | mmHg | + + + +---------+ | 2022-05-11 00:00 | heart_rate | 70 | /min | + + + +---------+ | 2022-05-11 00:00 | height_metric | 154.94 | cm | + + + +---------+ | 2022-05-11 00:00 | height_standard | 61 | in | + + + +---------+ | 2022-05-11 00:00 | o2_saturation | 93 | % | + + + +---------+ | 2022-05-11 00:00 | respiration_rate | 16 | /min | + + + +---------+ | 2022-05-11 00:00 | temperature_metric | 36.39 | C | | | | | | + + + +---------+ | 2022-05-11 00:00 | | 97.5 | F | | | temperature_standar | | | | | d | | | + + + +---------+ | 2022-05-11 00:00 | weight_metric | 92.2 | kg | + + + +---------+ | 2022-05-11 00:00 | weight_standard | 203.27 | lb | + + + +---------+ | 2022-08-20 00:00 | BMI | 35.1 | kg/m2 | + + + +---------+ | 2022-08-20 00:00 | height_metric | 154.94 | cm | + + + +---------+ | 2022-08-20 00:00 | height_standard | 61 | in | + + + +---------+ | 2022-08-20 00:00 | weight_metric | 84.3 | kg | + + + +---------+ | 2022-08-20 00:00 | weight_standard | 185.85 | lb | + + + +---------+ | 2022-08-28 00:00 | BP_diastolic | 83 | mmHg | + + + +---------+ | 2022-08-28 00:00 | BP_systolic | 114 | mmHg | + + + +---------+ | 2022-08-28 00:00 | heart_rate | 64 | /min | + + + +---------+ | 2022-08-28 00:00 | o2_saturation | 94 | % | + + + +---------+ | 2022-08-28 00:00 | respiration_rate | 17 | /min | + + + +---------+ | 2022-08-28 00:00 | temperature_metric | 36.83 | C | | | | | | + + + +---------+ | 2022-08-28 00:00 | | 98.3 | F | | | temperature_standar | | | | | d | | | + + + +---------+ | 2022-09-05 00:00 | BMI | 33.3 | kg/m2 | + + + +---------+ | 2022-09-05 00:00 | BP_diastolic | 60 | mmHg | + + + +---------+ | 2022-09-05 00:00 | BP_systolic | 154 | mmHg | + + + +---------+ | 2022-09-05 00:00 | heart_rate | 60 | /min | + + + +---------+ | 2022-09-05 00:00 | height_metric | 157.48 | cm | + + + +---------+ | 2022-09-05 00:00 | height_standard | 62 | in | + + + +---------+ | 2022-09-05 00:00 | o2_saturation | 96 | % | + + + +---------+ | 2022-09-05 00:00 | respiration_rate | 18 | /min | + + + +---------+ | 2022-09-05 00:00 | temperature_metric | 36.72 | C | | | | | | + + + +---------+ | 2022-09-05 00:00 | | 98.1 | F | | | temperature_standar | | | | | d | | | + + + +---------+ | 2022-09-05 00:00 | weight_metric | 82.64 | kg | + + + +---------+ | 2022-09-05 00:00 | weight_standard | 182.19 | lb | + + + +---------+ | 2023-01-08 00:00 | BMI | 38.9 | kg/m2 | + + + +---------+ | 2023-01-08 00:00 | height_metric | 157.48 | cm | + + + +---------+ | 2023-01-08 00:00 | height_standard | 62 | in | + + + +---------+ | 2023-01-08 00:00 | weight_metric | 96.5 | kg | + + + +---------+ | 2023-01-08 00:00 | weight_standard | 212.75 | lb | + + + +---------+ | 2023-01-10 00:00 | BP_diastolic | 64 | mmHg | + + + +---------+ | 2023-01-10 00:00 | BP_systolic | 153 | mmHg | + + + +---------+ | 2023-01-10 00:00 | heart_rate | 66 | /min | + + + +---------+ | 2023-01-10 00:00 | o2_saturation | 100 | % | + + + +---------+ | 2023-01-10 00:00 | respiration_rate | 18 | /min | + + + +---------+ | 2023-01-10 00:00 | temperature_metric | 36.61 | C | | | | | | + + + +---------+ | 2023-01-10 00:00 | | 97.9 | F | | | temperature_standar | | | | | d | | | + + + +---------+ | 2023-03-06 00:00 | BMI | 34.8 | kg/m2 | + + + +---------+ | 2023-03-06 00:00 | BMI | 34.9 | kg/m2 | + + + +---------+ | 2023-03-06 00:00 | BP_diastolic | 59 | mmHg | + + + +---------+ | 2023-03-06 00:00 | BP_systolic | 147 | mmHg | + + + +---------+ | 2023-03-06 00:00 | heart_rate | 71 | /min | + + + +---------+ | 2023-03-06 00:00 | height_metric | 157.48 | cm | + + + +---------+ | 2023-03-06 00:00 | height_standard | 62 | in | + + + +---------+ | 2023-03-06 00:00 | o2_saturation | 100 | % | + + + +---------+ | 2023-03-06 00:00 | respiration_rate | 18 | /min | + + + +---------+ | 2023-03-06 00:00 | temperature_metric | 36.61 | C | | | | | | + + + +---------+ | 2023-03-06 00:00 | | 97.9 | F | | | temperature_standar | | | | | d | | | + + + +---------+ | 2023-03-06 00:00 | weight_metric | 86.27 | kg | + + + +---------+ | 2023-03-06 00:00 | weight_metric | 86.5 | kg | + + + +---------+ | 2023-03-06 00:00 | weight_standard | 190.19 | lb | + + + +---------+ | 2023-03-06 00:00 | weight_standard | 190.7 | lb | + + + +---------+ | 2023-03-07 00:00 | BP_diastolic | 53 | mmHg | + + + +---------+ | 2023-03-07 00:00 | BP_systolic | 135 | mmHg | + + + +---------+ | 2023-03-07 00:00 | heart_rate | 64 | /min | + + + +---------+ | 2023-03-07 00:00 | o2_saturation | 92 | % | + + + +---------+ | 2023-03-07 00:00 | respiration_rate | 18 | /min | + + + +---------+ | 2023-03-07 00:00 | temperature_metric | 36.5 | C | | | | | | + + + +---------+ | 2023-03-07 00:00 | | 97.7 | F | | | temperature_standar | | | | | d | | | + + + +---------+ | 2023-06-05 00:00 | BMI | 35.7 | kg/m2 | + + + +---------+ | 2023-06-05 00:00 | height_metric | 157.48 | cm | + + + +---------+ | 2023-06-05 00:00 | height_standard | 62 | in | + + + +---------+ | 2023-06-05 00:00 | weight_metric | 88.63 | kg | + + + +---------+ | 2023-06-05 00:00 | weight_standard | 195.4 | lb | + + + +---------+ | 2023-06-06 00:00 | BP_diastolic | 59 | mmHg | + + + +---------+ | 2023-06-06 00:00 | BP_systolic | 128 | mmHg | + + + +---------+ | 2023-06-06 00:00 | heart_rate | 66 | /min | + + + +---------+ | 2023-06-06 00:00 | o2_saturation | 95 | % | + + + +---------+ | 2023-06-06 00:00 | respiration_rate | 16 | /min | + + + +---------+ | 2023-06-06 00:00 | temperature_metric | 36.33 | C | | | | | | + + + +---------+ | 2023-06-06 00:00 | | 97.4 | F | | | temperature_standar | | | | | d | | | + + + +---------+ | 2023-07-04 00:00 | BMI | 40.8 | kg/m2 | + + + +---------+ | 2023-07-04 00:00 | BP_diastolic | 63 | mmHg | + + + +---------+ | 2023-07-04 00:00 | BP_systolic | 135 | mmHg | + + + +---------+ | 2023-07-04 00:00 | heart_rate | 62 | /min | + + + +---------+ | 2023-07-04 00:00 | height_metric | 157.48 | cm | + + + +---------+ | 2023-07-04 00:00 | height_standard | 62 | in | + + + +---------+ | 2023-07-04 00:00 | o2_saturation | 95 | % | + + + +---------+ | 2023-07-04 00:00 | respiration_rate | 16 | /min | + + + +---------+ | 2023-07-04 00:00 | temperature_metric | 36.67 | C | | | | | | + + + +---------+ | 2023-07-04 00:00 | | 98 | F | | | temperature_standar | | | | | d | | | + + + +---------+ | 2023-07-04 00:00 | weight_metric | 101.2 | kg | + + + +---------+ | 2023-07-04 00:00 | weight_standard | 223.11 | lb | + + + +---------+"
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
[~2023-07-29 15:30] MED LIST changes: +CEPHALEXIN500 M1 PO
--- OUTSIDE RECORDS SUMMARY | 2023-07-29 15:32 | XMS ---
PreManage Notification: CARLOS NARAYANAN Security Headhunter Events No recent Security Events currently on file CRITERIA MET - [facility] [place] - 2 Visits in 30 Days CARE PROVIDERS MORGAN VICKERS Internal Medicine Current PHONE: [phone] Luis Cosme Specialist Current MD PHONE: Unknown ASH DHILLON [facility] Current PHONE: [phone] EVERETT HUTSON Emergency Medicine Current PHONE: [phone] SERGIO RUELAS Internal Medicine Current PHONE: Unknown [place] has no Care Guidelines for this patient. [place] VISIT COUNT (12 MO.) 6 GERTRUDIS Soriano TOTAL 6 NOTE: Visits indicate total known visits. ED/UCC VISIT TRACKING (12 MO.) 07/29/2023 15:30 [facility] [place] [place] TYPE: Emergency COMPLAINT: - LT ARM SWELLING 07/04/2023 11:04 [facility] [place] TYPE: Emergency COMPLAINT: - -2 DAYS, SHARP PAIN L ARM, L SIDE BODY SWOLLEN DIAGNOSES: - Allergy status to analgesic agent - Allergy status to penicillin - Essential (primary) hypertension - Hypothyroidism, unspecified - Localized edema - Localized swelling, mass and lump, left lower limb - Other longterm (current) drug therapy - Personal history of nicotine dependence - Urinary tract infection, site not specified 03/06/2023 15:52 [facility] [place] TYPE: Emergency COMPLAINT: - URINE PROBLEM DIAGNOSES: - Allergy status to analgesic agent - Allergy status to penicillin - Altered mental status, unspecified - Contact with and (suspected) exposure to COVID-19 - Essential (primary) hypertension - Hemiplegia and hemiparesis following cerebral infarction affecting right dominant side - Hypothyroidism, unspecified - 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 - Other tank terminal gauger (current) drug therapy - Personal history of nicotine dependence - Urinary tract infection, site not specified 01/08/2023 17:32 [facility] [place] TYPE: Emergency COMPLAINT: - WEAKNESS 09/05/2022 16:12 [facility] [place] TYPE: Emergency COMPLAINT: - FALL DIAGNOSES: - Allergy status to analgesic agent - Allergy status to penicillin - Essential (primary) hypertension - Fall on same level, unspecified, initial encounter - Fracture of one rib, unspecified side, subsequent encounter for fracture with routine healing - Personal history of nicotine dependence - Pure hypercholesterolemia, unspecified - Unspecified injury of head, initial encounter 08/20/2022 15:42 [facility] [place] [place] TYPE: Emergency COMPLAINT: - FALL INPATIENT VISIT TRACKING (12 MO.) 01/08/2023 17:33 [facility] [place] TYPE: Observation COMPLAINT: - R RADIUS FX DIAGNOSES: - Acute cystitis without hematuria - Age-related osteoporosis without current pathological fracture - Allergy status to penicillin - Chronic kidney disease, stage 3b - Contact with and (suspected) exposure to COVID-19 - Fall on same level, unspecified, initial encounter - Gastro-esophageal reflux disease without esophagitis - Hyperlipidemia, unspecified - Hypertensive chronic kidney disease with stage 1 through stage 4 chronic kidney disease, or unspecified chronic kidney disease - Hypothyroidism, unspecified - Lumbago with sciatica, unspecified side - Major depressive disorder, single episode, unspecified - Multiple fractures of ribs, right side, initial encounter for closed fracture - Other specified disorders of kidney and ureter - Overactive bladder - Paroxysmal atrial fibrillation - Personal history of nicotine dependence - Unspecified fracture of second lumbar vertebra, initial encounter for closed fracture - Unspecified fracture of the lower end of right radius, initial encounter for closed fracture - Unspecified injury of head, initial encounter 08/21/2022 12:25 [facility] [place] [place] TYPE: Medical Surgical COMPLAINT: - SP FALL W BILAT RIB FX CHRONIC ANTICOAGULATION DIAGNOSES: - Acquired absence of both cervix and uterus - Acquired absence of both cervix and uterus - Acquired absence of other specified parts of digestive tract - Acquired absence of other specified parts of digestive tract - Age-related osteoporosis without current pathological fracture - Age-related osteoporosis without current pathological fracture - Allergy status to other drugs, medicaments and biological substances - Allergy status to other drugs, medicaments and biological substances - Body mass index [BMI] 38.0-38.9, adult - Body mass index [BMI] 38.0-38.9, adult - Contact with and (suspected) exposure to COVID-19 - Contact with and (suspected) exposure to COVID-19 - Dependence on wheelchair - Dependence on wheelchair - Essential (primary) hypertension - Essential (primary) hypertension - Fall from moving wheelchair (powered), initial encounter - Fall from moving wheelchair (powered), initial encounter - Gastro-esophageal reflux disease without esophagitis - Gastro-esophageal reflux disease without esophagitis - Hemiplegia and hemiparesis following cerebral infarction affecting right dominant side - Hemiplegia and hemiparesis following cerebral infarction affecting right dominant side - Hypothyroidism, unspecified - Hypothyroidism, unspecified - Insomnia, unspecified - Insomnia, unspecified - correction (current) use of anticoagulants - correction (current) use of anticoagulants - Multiple fractures of ribs, bilateral, initial encounter for closed fracture - Multiple fractures of ribs, bilateral, initial encounter for closed fracture - Multiple fractures of ribs, right side, initial encounter for closed fracture - Obesity, unspecified - Obesity, unspecified - Other longterm (current) drug therapy - Other tank terminal gauger (current) drug therapy - Personal history of nicotine dependence - Personal history of nicotine dependence - Presence of cardiac pacemaker - Presence of cardiac pacemaker - Presence of intraocular lens - Presence of intraocular lens - Pure hypercholesterolemia, unspecified - Pure hypercholesterolemia, unspecified - Unspecified atrial fibrillation - Unspecified atrial fibrillation - Unspecified Escherichia coli [E. coli] as the cause of diseases classified elsewhere - Unspecified Escherichia coli [E. coli] as the cause of diseases classified elsewhere - Urinary tract infection, site not specified - Urinary tract infection, site not specified [email or web address]
[2023-07-29 16:34] LABS: BASOPHILS 0.4 % (0-2); EOSINOPHILS 2.9 % (0-6); HEMATOCRIT 40.4 % (35.0-50.0); HEMOGLOBIN 13.4 g/dL (12.0-18.0); MCH 30.8 (27-36); MCHC 33.3 g/dl (30-36); MCV 92.5 fl (81-99); MONOCYTES 10.1 % (0-12); NEUTROPHILS 60.6 % (39-80); PLATELET COUNT 197 K/uL (140-440); RBC 4.36 M/ul (4.3-5.7)
[2023-07-29 16:58] LABS: ALBUMIN 3.6 g/dL (3.4-5.0); ALBUMIN/GLOBULIN RATIO 1.03 (1.1-2.4); ANION GAP 13.9 (7-21); BILIRUBIN, TOTAL 0.4 ng/dL (0.2-1.0); BUN/CREATININE RATIO 14.5 (6.0-28.6); CALCIUM 8.8 mg/dL (8.5-10.1); CREATININE, SERUM 1.31 mg/dL (0.55-1.02); POTASSIUM 4.9 mmol/L (3.5-5.1); PROTEIN, TOTAL 7.1 g/dL (6.4-8.2)
[2023-07-29] MEDS ORDERED: LASIX40 MG PO (17:23)
[2023-07-29] MEDS ORDERED: K-TAB ER20 MEQ PO (17:23)
[2023-07-29] MEDS ORDERED: DONEPEZIL HCL5 MG PO (17:51)
[2023-07-29 17:53] VITALS: BP 147/87
== END 2023-07-29 17:53 | disposition home or self-care (01) ==
LOC: ED 15:30
PROVIDERS: Emergency Medicine
DX: R60.0 Localized edema (principal); I12.9 Hypertensive chronic kidney disease with stage 1 through stage 4 chronic kidney disease, or unspecified chronic kidney disease; N18.9 Chronic kidney disease, unspecified; I69.351 Hemiplegia and hemiparesis following cerebral infarction affecting right dominant side; Z95.0 Presence of cardiac pacemaker; Z88.8 Allergy status to other drugs, medicaments and biological substances; Z88.0 Allergy status to penicillin; Z79.899 Other long term (current) drug therapy; Z79.890 Hormone replacement therapy; Z79.01 Long term (current) use of anticoagulants
CPT/HCPCS: 36415; 80053; 83880; 85025; 99284

== ENCOUNTER 2024-08-12 14:05 | Emergency (ER) | payer MEDICARE ==
[~2024-08-12] VITALS: Ht 157.5 cm; Wt 90.0 kg
[~2024-08-12 14:05] MED LIST changes: +DONEPEZIL HCL5 MG PO; +LASIX40 MG PO
[2024-08-12] MEDS ORDERED: LACTATED RINGER'S 1,000 ML IV ONE (14:30)
[2024-08-12] MEDS ORDERED: DIPHTH,PERTUSS(ACELL),TET VAC 0.5 ML SYRINGE IM ONE (14:30)
[2024-08-12 14:41] LABS: BASOPHILS 0.5 % (0-2); EOSINOPHILS 2.4 % (0-6); HEMATOCRIT 38.7 % (35.0-50.0); LYMPHOCYTES 21.1 % (24-44); MCH 31.6 (27-36); MCHC 33.6 g/dl (30-36); MONOCYTES 12.2 % (0-12); NEUTROPHILS 63.8 % (39-80); PLATELET COUNT 181 K/uL (140-440); RBC 4.12 M/ul (4.3-5.7); RDW 14.9 (10.5-15.0)
[2024-08-12 14:57] LABS: ALBUMIN 3.5 g/dL (3.4-5.0); ALCOHOL, MEDICAL <3 ng/dL (<3); ALKALINE PHOSPHATASE 104 U/L (46-116); ALT (SGPT) 37 U/L (14-59); ANION GAP 13.8 (7-21); AST (SGOT) 28 U/L (15-37); BILIRUBIN, TOTAL 0.4 ng/dL (0.2-1.0); BUN/CREATININE RATIO 13.96 (6.0-28.6); CALCIUM 9.6 mg/dL (8.5-10.1); CARBON DIOXIDE 27 mmol/L (21-32); CHLORIDE 101 mmol/L (98-107); CREATININE, SERUM 1.79 mg/dL (0.55-1.02); GLOMERULAR FILTRATION RATE,EST 27 mL/min (>60); POTASSIUM 4.8 mmol/L (3.5-5.1); UREA NITROGEN 25 mg/dL (7-18)
[2024-08-12 15:20] LABS: ABO O; ANTIBODY SCREEN NEGATIVE; RH POSITIVE
[2024-08-12] MEDS ORDERED: HYDROmorphone HCL 1 MG/ML SYR IV ONE (15:45)
[2024-08-12] MEDS ORDERED: ondansetron HCL 4 MG/2 ML VIAL IV ONE (15:45)
[2024-08-12 16:30] VITALS: BP 126/30
== END 2024-08-12 16:30 | disposition home or self-care (01) ==
LOC: ED 14:05
PROVIDERS: Emergency Medicine
DX: S00.83XA Contusion of other part of head, initial encounter (principal); I69.351 Hemiplegia and hemiparesis following cerebral infarction affecting right dominant side; I10 Essential (primary) hypertension; E03.9 Hypothyroidism, unspecified; E78.00 Pure hypercholesterolemia, unspecified; W18.30XA Fall on same level, unspecified, initial encounter; Z91.81 History of falling; Z87.891 Personal history of nicotine dependence; Z95.0 Presence of cardiac pacemaker; Z88.6 Allergy status to analgesic agent; Z88.0 Allergy status to penicillin; Z79.01 Long term (current) use of anticoagulants; Z79.890 Hormone replacement therapy; Z79.83 Long term (current) use of bisphosphonates; Z79.899 Other long term (current) drug therapy
CPT/HCPCS: 36415; 70450; 70486; 71250; 72125; 73130; 80053; 80307; 83605; 85025; 86850; 86900; 86901; 90471; 90715; 96374; 96375; 99284-25; G0480; J1170; J2405; J7121

== ENCOUNTER 2024-11-25 11:14 | Emergency (ER) | payer MEDICARE ==
[~2024-11-25] VITALS: Ht 157.5 cm; Wt 91.2 kg
[~2024-11-25 11:14] MED LIST changes: +CALCIUM CARBON600 M1 PO; -CALCIUM500 MG PO; -MELATONIN10 MG PO; +MELATONIN5 M2 PO; -VITAMIN D325 MCG PO; +VITAMIN D350 MC3 PO
[2024-11-25] MEDS ORDERED: BUMETANIDE0.5 MG PO (12:46)
[2024-11-25] MEDS ORDERED: NORVASC10 MG PO (12:47)
[2024-11-25] MEDS ORDERED: METOPROLOL SUC200 MG PO (12:50)
[2024-11-25] MEDS ORDERED: PROBIOTIC1 EAC8 PO (12:51)
[2024-11-25] MEDS ORDERED: FLOMAX0.4 MG PO (12:53)
[2024-11-25] MEDS ORDERED: SODIUM CHLORIDE 0.9% 500 ML IV ONE (13:00)
[2024-11-25 13:18] LABS: BASOPHILS 0.8 % (0-2); EOSINOPHILS 1.9 % (0-6); HEMATOCRIT 39.1 % (35.0-50.0); HEMOGLOBIN 12.9 g/dL (12.0-18.0); LYMPHOCYTES 20.9 % (24-44); MCH 31.4 (27-36); MCHC 33.1 g/dl (30-36); MCV 94.8 fl (81-99); MONOCYTES 9.8 % (0-12); NEUTROPHILS 66.6 % (39-80); PLATELET COUNT 182 K/uL (140-440); RBC 4.13 M/ul (4.3-5.7); RDW 15.2 (10.5-15.0)
[2024-11-25 13:31] LABS: ALBUMIN 3.5 g/dL (3.4-5.0); ALBUMIN/GLOBULIN RATIO 0.9 (1.1-2.4); ANION GAP 11.1 (7-21); BILIRUBIN, TOTAL 0.5 ng/dL (0.2-1.0); BUN/CREATININE RATIO 10.82 (6.0-28.6); CALCIUM 9.3 mg/dL (8.5-10.1); CREATININE, SERUM 1.57 mg/dL (0.55-1.02); MAGNESIUM 2.3 mg/dL (1.8-2.4); POTASSIUM 5.1 mmol/L (3.5-5.1); PROTEIN, TOTAL 7.4 g/dL (6.4-8.2)
[2024-11-25 18:09] VITALS: BP 113/72
== END 2024-11-25 18:07 | disposition home or self-care (01) ==
LOC: ED 11:14
PROVIDERS: Emergency Medicine
DX: R19.7 Diarrhea, unspecified (principal); I69.351 Hemiplegia and hemiparesis following cerebral infarction affecting right dominant side; I10 Essential (primary) hypertension; E03.9 Hypothyroidism, unspecified; E78.00 Pure hypercholesterolemia, unspecified; Z87.891 Personal history of nicotine dependence; Z88.0 Allergy status to penicillin; Z88.6 Allergy status to analgesic agent; Z79.890 Hormone replacement therapy; Z79.01 Long term (current) use of anticoagulants; Z79.899 Other long term (current) drug therapy
CPT/HCPCS: 36415; 80053; 83735; 85025; 87045; 87046; 99284; J7040